=== PATIENT | male | born 1950 | race Caucasian/White ===

== ENCOUNTER 2016-11-25 12:17 | Inpatient (IN) | payer MEDICARE, OTHER ==
[~2016-11-25] VITALS: Ht 175.3 cm; Wt 64.5 kg
[~2016-11-25 12:17] MED LIST: AMIO200T2 PO; ASPI81TA2 PO; CARV25TA2 PO; COMBIVENT; DUONEB; FOLI1TAB16 PO; FURO20TA3 PO; LISI40TA PO; OXYC30TA PO; PRAV10TA2 PO; PROVENTIL; SPIR25TA3 PO; SYMBICORT
[2016-11-25] MEDS ORDERED: PROCHLORPERAZINE 10 MG/2 ML VIAL. IV PRN (14:30)
[2016-11-25] MEDS ORDERED: CALCIUM CARBONATE 500 MG TAB.CHEW PO PRN (14:30)
[2016-11-25] MEDS ORDERED: PROCHLORPERAZINE 25 MG SUPP.RECT. PR PRN (14:30)
[2016-11-25] MEDS ORDERED: ZOLPIDEM 5 MG TABLET. PO PRN (14:30)
[2016-11-25] MEDS ORDERED: ONDANSETRON PF 4 MG/2 ML VIAL. IV PRN (14:30)
[2016-11-25] MEDS ORDERED: LACTULOSE 20 GM/30 ML SOLUTION. PO PRN (14:30)
[2016-11-25] MEDS ORDERED: OXYCODONE IR 5 MG TABLET. PO PRN (14:30)
[2016-11-25] MEDS ORDERED: MAG HYDROX/ALUMINUM HYDROX/SMC 30 ML ORAL.SUSP PO PRN (14:30)
[2016-11-25] MEDS ORDERED: MORPHINE SULFATE 2 MG/ML DISP.SYRIN. IV PRN (14:30)
[2016-11-25] MEDS ORDERED: ENOXAPARIN 40 MG/0.4 ML DISP.SYRIN. SQ SCH (14:30)
[2016-11-25] MEDS ORDERED: MAGNESIUM HYDROXIDE 2,400 MG/30 ML ORAL.SUSP. PO PRN (14:30)
--- NOTE | 2016-11-25 14:40 | PDOC1 ---
History and Physical Date of Admission Date of Admission DATE: 11/25/16 TIME: 14:32 Identification/Chief Complaint Chief Complaint sent from [place] for [place], no bed avail at [place] Source Source: Caregiver, Chart review, Patient History of Present Illness History of Present Illness 66 y.o male who follows at [place], medical hx includes CAD with PCI indwelling, hx CHF with EF 45%, chronic atrial fib but currently not in a fib, EMS was called in his place bec there was some malfunction in his home o2, that he almost blacked out,. he claims he did not have O2 for 2 hrs, almost saw "the end of the light tunnel",. He has COPD on home O2 2LNC 28/04. Currently in between looking for software design manager, He is chronic pain, narcs at home and is not on good rapport with current PCP bec of his narcotic dependence.. he denies CP, but trops were 0.09, 0.58 and 0.065, respectively at [place] ER. CXR ok, rest of labs ok, He had a recent admit at , for the same, cardiac cath was done which showed occlusion but no stents were placed. Pt claims compliance with meds, Heavy smoker x 45 yrs, quit few mos ago, ALso had occupational lung exposure issues, he claims contributed to his COPD he claims the low O2 x 2 hrs likely "put a strain in his heart". Past Medical History Cardiovascular: AFIB, CAD, CHF, HTN, Hyperlipidemia Pulmonary: COPD Past Surgical History Past Surgical History: Other (PCI x 2) Family History Family History: No Significant Social History Smoke: Quit ALCOHOL: none Drugs: None Current Problem List Problem List Problems Medical Problems: (1) COPD (chronic obstructive pulmonary disease) Status: Acute Problems: Current Medications Current Medications Current Medications Ondansetron HCl (Zofran) 4 mg PRN Q6HRS PRN IV NAUSEA/VOMITING; Start 11/25/16 at 14:30; Status UNV Prochlorperazine Edisylate (Compazine) 10 mg PRN Q6HRS PRN IV NAUSEA/VOMITING; Start 11/25/16 at 14:30; Status UNV Prochlorperazine (Compazine) 25 mg PRN Q12HR PRN NE NAUSEA/VOMITING; Start at 14:30; Status UNV Al Hydrox/Mg Hydrox/Simethicone (Mylanta Plus Xs) 30 ml PRN Q3HRS PRN PO HEARTBURN / GAS; Start 11/25/16 at 14:30; Status UNV Calcium Carbonate/ Glycine (Tums) 500 mg PRN Q3HRS PRN PO UPSET STOMACH; Start 11/25/16 at 14:30; Status UNV Oxycodone HCl (Roxicodone) 5 mg PRN Q3HRS PRN PO BREAKTHROUGH PAIN; Start 11/25 at 14:30; Status UNV Morphine Sulfate 2 mg PRN Q2HR PRN IV PAIN; Start 11/25/16 at 14:30; Status UNV Docusate Sodium (Colace) 100 mg BID PO ; Start 11/25/16 at 21:00; Status UNV Magnesium Hydroxide (Milk Of Magnesia) 2,400 mg PRN Q12HR PRN PO CONSTIPATION; Start 11/25/16 at 14:30; Status UNV Lactulose 20 gm PRN Q12HR PRN PO CONSTIPATION; Start 11/25/16 at 14:30; Status UNV Heparin Sodium (Porcine) 5,000 unit Q8HRS SQ ; Start 11/25/16 at 22:00; Status UNV Heparin Sodium (Porcine) 5,000 unit Q12HR SQ ; Start 11/25/16 at 21:00; Status UNV Enoxaparin Sodium (Lovenox 40mg Syringe) 40 mg Q24H SQ ; Start 11/25/16 at 14:30 ; Status UNV Active Scripts Active Reported Oxycodone Hcl 30 Mg Tablet 1 Tab PO QID Spironolactone 25 Mg Tablet 0.5 Tab PO DAILY Furosemide 20 Mg Tablet 20 Mg PO BID [Duoneb] [Combivent] [Proventil] [Symbicort] Lisinopril 40 Mg Tablet 0.5 Tab PO DAILY Folic Acid 1 Mg Tablet 1 Tab PO DAILY Pravastatin Sodium 10 Mg Tablet 0.5 Tab PO DAILY Aspirin 81 Mg Tab.chew 1 Tab PO DAILY Carvedilol 25 Mg Tablet 0.5 Tab PO BID Amiodarone Hcl 200 Mg Tablet 0.5 Tab PO DAILY Allergies Allergies: Coded Allergies: Fish Containing Products (Unverified Allergy, Unknown, Unknown, 08/13/15) bee pollen (Unverified Allergy, Unknown, Unknown, 08/13/15) peanut (Unverified Allergy, Unknown, Unknown, 08/13/15) propoxyphene (Unverified Allergy, Unknown, Unknown, 08/13/15) venom-honey bee (Unverified Allergy, Unknown, Unknown, 08/13/15) Uncoded Allergies: UNKNOWN ANTIBIOTIC (Allergy, Unknown, Unknown, 08/13/15) ROS General: No: Appetite, Chills, Fatigue, Malaise, Night Sweats, Other PSYCHOLOGICAL ROS: No: Anxiety, Behavioral Disorder, Concentration difficultie , Decreased libido, Depression, Disorientation, Hallucinations, Hostility, Irritablity, Memory difficulties, Mood Swings, Obsessive thoughts, Other, Physical abuse, Sexual abuse, Sleep disturbances, Suicidal ideation Eyes: No Blurry vision, No Decreased vision, No Double vision, No Dry eyes, No Excessive tearing, No Eye Pain, No Itchy Eyes, No Loss of vision, No Other, No Photophobia, No Scotomata, No Uses contacts, No Uses glasses HEENT: No: Epistaxis, Heacaches, Hearing change, Nasal congestion, Nasal discharge, Oral lesions, Other, Sinus pain, Sneezing, Snoring, Sore Throat, Tinnitus, Vertigo, Visual Changes, Vocal changes ALLERGY AND IMMUNOLOGY: No: Hives, Insect Bite Sensitivity, Itchy/Watery Eyes, Nasal Congestion, Other, Post Nasal Drip, Seasonal Allergies Hematological and Lymphatic: No: Bleeding Problems, Blood Clots, Blood Transfusions, Brusing, Night Sweats, Other, Pallor, Swollen Lymph Nodes ENDOCRINE: No: Breast Changes, Galactorrhea, Hair Pattern Changes, Hot Flashes , Malaise/lethargy, Mood Swings, Other, Palpitations, Polydipsia/polyuria, Skin Changes, Temperature Intolerance, Unexpected Weight Changes Breast: No New/Changing Breast Lumps, No Nipple changes, No Nipple discharge, No Other Respiratory: YES: Shortness of breath Cardiovascular: No Chest Pain, No Edema, No Lt Headedness, No Orthopnea, No Other, No Palpitations, No Paroxysmal Noc. Dyspnea Genitourinary: No , No , No , No , No , No , No , No Discharge, No Dysuria, No Flank Pain, No Frequency, No Hematuria, No Incontinence, No Other, No Pain, No Retention, No Urgency Neurological: No Behavorial Changes, No Bowel/Bladder ControlChng, No Confusion , No Dizziness, No Gait Disturbance, No Headaches, No Impaired Coord/balance, No Memory Loss, No Numbness/Tingling, No Other, No Seizures, No Speech Problems , No Tremors, No Visual Changes, No Weakness Skin: No Acne, No Dry Skin, No Eczema, No Hair Changes, No Lumps, No Mole Changes, No Mottling, No Nail Changes, No Other, No Pruritus, No Rash, No Skin Lesion Changes Physical Exam General: Alert, Oriented X3, Cooperative HEENT: PERRLA Lungs: Normal air movement, Other (no wheezes, normal air entry) Breasts: Normal, Rt breast nml w/o mass, Lt breast nml w/o mass, Nipples normal Abdomen: Normal bowel sounds, Soft, No tenderness, No hepatosplenomegaly, No masses Male Genitals Exam: normal genitalia, normal prostate Rectal Exam: not examined PELVIC: Nml ext genitalia Extremities: No clubbing, No cyanosis, No edema, Normal pulses, No tenderness/ swelling Skin: No rashes, No breakdown, No significant lesion Neuro: Normal gait, Normal speech, Strength at 5/5 X4 ext, Normal tone, Sensation intact, Cranial nerves 3-12 NL, Reflexes 2+ Psych/Mental Status: Mental status NL, Mood NL VTE Prophylaxis Ordered VTE Prophylaxis Devices: Yes VTE Pharmacological Prophylaxi: Yes Assessment/Plan Assessment/Plan 1. Hypoxic respi failure POA sec to malfunctioning O2 tank - currently has HH and they will fix the issue 2. Troponin elevation x 3, known CAD indwelling PCI 4. CHF, stable with EF 45% 5. Hx atrial fib 6. Chronic pain on home narcs 7. COPD, prev heavy smoker and occupational lung hazard 8. MIld PCM PLAN: COnsult CArds Resume home meds May have diet today CAn get records from [facility] re recent cardiac cath Ramu RN and pt JAMARCUS MCNAMARA MD Nov 25, 2016 14:40
[2016-11-25] MEDS ORDERED: PANT40TA3 PO (14:54)
[2016-11-25] MEDS ORDERED: FERR-26 PO (14:54)
[2016-11-25 15:00] VITALS: BP 143/75
[2016-11-25] MEDS ORDERED: LISINOPRIL 40 MG TABLET. PO SCH (15:00)
[2016-11-25] MEDS: ASPIRIN 81 MG TAB.CHEW PO SCH (15:00)
[2016-11-25] MEDS ORDERED: SPIRONOLACTONE 25 MG TABLET PO SCH (15:00)
[2016-11-25] MEDS: FOLIC ACID 1 MG TABLET PO SCH (15:00)
[2016-11-25] MEDS ORDERED: FUROSEMIDE 20 MG TABLET PO SCH (15:00)
[2016-11-25] MEDS: AMIODARONE HCL 200 MG TABLET PO SCH (15:00)
[2016-11-25] MEDS ORDERED: HEPARIN PF for SUB-Q USE 5,000 UNIT/0.5 ML VIAL. SQ SCH ×2 (15:15→21:00)
[2016-11-25] MEDS ORDERED: SENN1TAB7 PO (15:34)
[2016-11-25] MEDS ORDERED: LISI-338 PO (15:34)
[2016-11-25] MEDS ORDERED: CEFP200T PO (15:34)
[2016-11-25] MEDS ORDERED: APIX5TAB PO (15:34)
[2016-11-25] MEDS ORDERED: CETI10TA22 PO (15:34)
[2016-11-25] MEDS ORDERED: BUPR100T11 PO (15:34)
[2016-11-25] MEDS ORDERED: ERGO500012 PO (15:34)
[2016-11-25] MEDS ORDERED: ASCO250T3 PO (15:34)
[2016-11-25] MEDS ORDERED: FLUT15.88 NS (15:34)
[2016-11-25] MEDS ORDERED: POLY17PO5 PO (15:34)
[2016-11-25] MEDS ORDERED: METO50TA10 PO (15:34)
[2016-11-25] MEDS ORDERED: BENZ100C2 PO (15:34)
[2016-11-25] MEDS ORDERED: OXYC10SY PO (15:34)
[2016-11-25] MEDS ORDERED: AMIO200T2 PO (16:35)
[2016-11-25] MEDS: FERROUS SULFATE 325 MG TABLET PO SCH (17:00)
[2016-11-25] MEDS ORDERED: CARVEDILOL 12.5 MG TABLET PO SCH (17:00)
[2016-11-25] MEDS: METOPROLOL SUCC 24HR ER 50 MG TAB.ER.24H. PO SCH (17:00)
[2016-11-25] MEDS: PANTOPRAZOLE 40 MG TABLET. PO SCH (17:00)
[2016-11-25] MEDS: CETIRIZINE HCL 10 MG TABLET PO SCH (17:00)
[2016-11-25] MEDS ORDERED: OXYCODONE IR 30 MG TABLET. PO SCH (17:00)
[2016-11-25] MEDS: OXYCODONE IR 5 MG TABLET. PO PRN ×2 (17:30→20:42)
[2016-11-25 19:50] VITALS: BP 140/74
[2016-11-25] MEDS: ASCORBIC ACID 500 MG TABLET PO SCH (20:39)
[2016-11-25] MEDS: ATORVASTATIN CALCIUM 10 MG TABLET. PO SCH (20:39)
[2016-11-25] MEDS: DOCUSATE SODIUM 100 MG CAPSULE PO SCH (20:39)
[2016-11-25] MEDS: APIXABAN 5 MG TABLET. PO SCH (20:39)
[2016-11-25] MEDS: CEFPODOXIME PROXETIL 200 MG TABLET PO SCH (20:39)
[2016-11-25] MEDS: buPROPion 100 MG TABLET PO SCH (20:39)
[2016-11-25] MEDS: LISINOPRIL 5 MG TABLET. PO SCH (20:40)
[2016-11-25 22:50] VITALS: BP 139/64
[2016-11-26] MEDS: OXYCODONE IR 5 MG TABLET. PO PRN ×6 (02:29→23:34)
[2016-11-26 02:55] VITALS: BP 164/74
[2016-11-26 05:11] LABS: BASO % 0 % (0-3); EOS % 0 % (0-3); HEMATOCRIT 25.9 % (39.0-53.0); HEMOGLOBIN 8.7 g/dL (13.0-17.5); LYMPH # 0.4 x10^3/uL (1.0-4.8); LYMPH % 5 % (24-48); MEAN CORPUSCULAR HEMOGLOBIN 31 pg (25-35); MEAN CORPUSCULAR HGB CONC 34 g/dL (31-37); MEAN CORPUSCULAR VOLUME 91 fL (79-100); MONO % 8 % (0-9); NEUT % 87 % (31-73); PLATELET COUNT 146 x10^3/uL (140-400); RED BLOOD COUNT 2.83 x10^6/uL (4.30-5.70); RED CELL DISTRIBUTION WIDTH 17.5 % (11.5-14.5); WHITE BLOOD COUNT 6.7 x10^3/uL (4.0-11.0)
[2016-11-26 05:21] LABS: INR 1.3 (0.8-1.1); PROTHROMBIN TIME PATIENT 15.5 SEC (11.7-14.0)
[2016-11-26 06:11] LABS: CALCIUM 9.1 mg/dL (8.5-10.1); CREATININE 0.7 mg/dL (0.7-1.3); GFR 112.1
[2016-11-26 07:31] VITALS: BP 149/70
[2016-11-26] MEDS: AMIODARONE HCL 200 MG TABLET PO SCH (09:00)
[2016-11-26] MEDS ORDERED: REGADENOSON 0.4 MG/5 ML DISP.SYRIN. IV ONE (10:00)
--- NOTE | 2016-11-26 10:08 | PDOC2 ---
CONSULT Date of Consult Date of Consult DATE: 11/26/16 TIME: 09:56 Reason for Consult Reason for Consult: Elevated troponins Referring Physician Referring Physician: Nemesio Identification/Chief Complaint Chief Complaint Short of breath Source Source: Chart review, Patient History of Present Illness Reason for Visit: Patient is a 66 year old male with a past history of CAD, COPD, chronic Afib with PCI placement (EF 45%), and a recent CVA who transferred from the [place] for mildly elevated troponins after presenting for dyspnea. He lives at home and reports his home oxygen (2L NC) shut off twice causes him to pass out once. EMS took him to the [facility] where he was found to have mildly elevated troponins 0.091, 0.052, 0.064, at two and half hour intervals. His CXR was within normal limits and his EKG was normal sinus rhythm with ST abnormalities non concerning for an Acute MS. He was transferred for further workup. He denies any chest pain during this episode. The patient reports he was recently discharged from where he had a heart catheterization without stenting performed. He also reports a stroke two weeks ago that is affecting his left side with improving weakness. He reports he gets short of breath very easily and walking is painful secondary to BRUNNER and limb length discrepancy Past Medical History Cardiovascular: AFIB, CAD, CHF, HTN, Hyperlipidemia Pulmonary: COPD Past Surgical History Past Surgical History: Other (PCI x 2) Family History Family History: No Significant Social History Quit (smoked over 45 years recently quit) ALCOHOL: none Drugs: None Current Problem List Problem List Problems Medical Problems: (1) COPD (chronic obstructive pulmonary disease) Status: Acute Current Medications Current Medications Current Medications Ondansetron HCl (Zofran) 4 mg PRN Q6HRS PRN IV NAUSEA/VOMITING; Start 11/25/16 at 14:30 Prochlorperazine Edisylate (Compazine) 10 mg PRN Q6HRS PRN IV NAUSEA/VOMITING; Start 11/25/16 at 14:30 Prochlorperazine (Compazine) 25 mg PRN Q12HR PRN [place] NAUSEA/VOMITING; Start at 14:30 Al Hydrox/Mg Hydrox/Simethicone (Mylanta Plus Xs) 30 ml PRN Q3HRS PRN PO HEARTBURN / GAS; Start 11/25/16 at 14:30 Calcium Carbonate/ Glycine (Tums) 500 mg PRN Q3HRS PRN PO UPSET STOMACH; Start 11/25/16 at 14:30 Zolpidem Tartrate (Ambien) 5 mg PRN QHS PRN PO INSOMNIA, MAY REPEAT IN 1HR; Start 11/25/16 at 14:30 Oxycodone HCl (Roxicodone) 5 mg PRN Q3HRS PRN PO BREAKTHROUGH PAIN; Start 11/25 at 14:30; Stop 11/25/16 at 16:44; Status DC Morphine Sulfate 2 mg PRN Q2HR PRN IV PAIN; Start 11/25/16 at 14:30 Docusate Sodium (Colace) 100 mg BID PO ; Start 11/25/16 at 21:00 Magnesium Hydroxide (Milk Of Magnesia) 2,400 mg PRN Q12HR PRN PO CONSTIPATION; Start 11/25/16 at 14:30 Lactulose 20 gm PRN Q12HR PRN PO CONSTIPATION; Start 11/25/16 at 14:30 Heparin Sodium (Porcine) 5,000 unit Q8HRS SQ ; Start 11/25/16 at 15:15; Stop at 15:42; Status DC Heparin Sodium (Porcine) 5,000 unit Q12HR SQ ; Start 11/25/16 at 21:00; Stop at 21:00; Status DC Enoxaparin Sodium (Lovenox 40mg Syringe) 40 mg Q24H SQ ; Start 11/25/16 at 14:30 ; Stop 11/25/16 at 15:42; Status DC Amiodarone HCl (Cordarone) 200 mg DAILY PO ; Start 11/25/16 at 15:00 Aspirin (Children'S Aspirin) 81 mg DAILY PO ; Start 11/25/16 at 15:00 Folic Acid (Folic Acid) 1 mg DAILY PO ; Start 11/25/16 at 15:00 Furosemide (Lasix) 20 mg BID92 PO ; Start 11/25/16 at 15:00; Stop 11/25/16 at 16 :44; Status DC Lisinopril (Prinivil) 40 mg DAILY PO ; Start 11/25/16 at 15:00; Stop 11/25/16 at 16:44; Status DC Oxycodone HCl (Roxicodone) 30 mg QID PO ; Start 11/25/16 at 17:00; Stop at 17:00; Status DC Spironolactone (Aldactone) 25 mg DAILY PO ; Start 11/25/16 at 15:00; Stop at 16:44; Status DC Carvedilol (Coreg) 12.5 mg BIDWMEALS PO ; Start 11/25/16 at 17:00; Stop at 17:00; Status DC Atorvastatin Calcium (Lipitor) 5 mg QHS PO Last administered on 11/25/16 20:39 ; Start 11/25/16 at 21:00 Apixaban (Eliquis) 5 mg BID PO Last administered on 11/25/16 20:39; Start at 21:00 Bupropion HCl (Wellbutrin) 100 mg BID PO Last administered on 11/25/16 20:39; Start 11/25/16 at 21:00 Cefpodoxime Proxetil (Vantin) 200 mg BID PO Last administered on 11/25/16 20: 39; Start 11/25/16 at 21:00 Cetirizine HCl (Zyrtec) 10 mg DAILY PO ; Start 11/25/16 at 17:00 Ferrous Sulfate (Feosol) 325 mg DAILY PO ; Start 11/25/16 at 17:00 Lisinopril (Prinivil) 5 mg HS PO Last administered on 11/25/16 20:40; Start at 21:00 Metoprolol Succinate (Toprol Xl) 100 mg DAILY PO ; Start 11/25/16 at 17:00 Pantoprazole Sodium (Protonix) 40 mg DAILYAC PO ; Start 11/25/16 at 17:00 Ascorbic Acid (Vitamin C) 250 mg BID PO Last administered on 11/25/16 20:39; Start 11/25/16 at 21:00 Oxycodone HCl (Roxicodone) 10 mg PRN Q4HRS PRN PO MODERATE TO SEVERE PAIN Last administered on 11/26/16 08:16; Start 11/25/16 at 17:15 Oxycodone HCl (Roxicodone) 20 mg PRN Q4HRS PRN PO SEVERE PAIN Last administered on 11/26/16 02:29; Start 11/25/16 at 17:15 Regadenoson (Lexiscan) 0.4 mg 1X ONCE IV ; Start 11/26/16 at 10:00; Stop at 10:01 Active Scripts Active Reported Amiodarone Hcl 200 Mg Tablet 1 Tab PO DAILY Oxycodone HCl 10 Mg/0.5 Ml Syringe 10 Mg PO PRN Q4HRS PRN Oxycodone HCl 10 Mg/0.5 Ml Syringe 20 Mg PO PRN Q4HRS PRN Bupropion Hcl 100 Mg Tablet 100 Mg PO BID Metoprolol Succinate 50 Mg Tab.er.24h 100 Mg PO DAILY Lisinopril 5 Mg Tablet 1 Tab PO HS Senna-Docusate Sodium Tablet (Sennosides/Docusate Sodium) 1 Each Tablet 1 Each PO PRN BID PRN Zyrtec (Cetirizine Hcl) 10 Mg Tablet 1 Tab PO DAILY Cefpodoxime Proxetil 200 Mg Tablet 1 Tab PO BID Benzonatate 100 Mg Capsule 1 Cap PO PRN TID PRN Ascorbic Acid 250 Mg Tablet 250 Mg PO BID Eliquis (Apixaban) 5 Mg Tablet 5 Mg PO BID Protonix (Pantoprazole Sodium) 40 Mg Tablet.dr 1 Tab PO DAILY Ferrous Sulfate 325 Mg Tablet 1 Tab PO DAILY Spironolactone 25 Mg Tablet 0.5 Tab PO DAILY [Duoneb] [Combivent] [Proventil] [Symbicort] Pravastatin Sodium 10 Mg Tablet 0.5 Tab PO HS Aspirin 81 Mg Tab.chew 1 Tab PO DAILY Allergies Allergies: Coded Allergies: peanut (Unverified Allergy, Severe, 11/26/16) venom-honey bee (Unverified Allergy, Severe, 11/26/16) Fish Containing Products (Unverified Allergy, Intermediate, 11/26/16) bee pollen (Unverified Allergy, Intermediate, 11/26/16) propoxyphene (Unverified Allergy, Intermediate, 11/26/16) I S O L A T I O N *CONTACT* (Verified Allergy, Unknown, 11/26/16) mrsa Uncoded Allergies: UNKNOWN ANTIBIOTIC (Allergy, Unknown, Unknown, 08/13/15) ROS Review of System negative except as described in the HPI Physical Exam General: Alert, Cooperative, No acute distress HEENT: PERRLA Lungs: Clear to auscultation (NC in place, slightly diminished air movement) Heart: Regular rate, Normal S1, Normal S2 Abdomen: Normal bowel sounds Extremities: No clubbing, No cyanosis, No edema Vitals VITALS Vital Signs Date Time Temp Pulse Resp B/P Pulse Ox O2 Delivery O2 Flow Rate FiO2 11/26/16 09:15 22 99 Nasal Cannula 3.0 11/26/16 07:31 97.9 68 149/70 97.9 Labs Labs Laboratory Tests Test 11/26/16 03:40 White Blood Count 6.7x10^3/uL (4.0-11.0) Red Blood Count 2.83x10^6/uL (4.30-5.70) Hemoglobin 8.7g/dL (13.0-17.5) Hematocrit 25.9% (39.0-53.0) Mean Corpuscular Volume 91fL (79-100) Mean Corpuscular Hemoglobin 31pg (25-35) Mean Corpuscular Hemoglobin Concent 34g/dL (31-37) Red Cell Distribution Width 17.5% (11.5-14.5) Platelet Count 146x10^3/uL (140-400) Neutrophils (%) (Auto) 87% (31-73) Lymphocytes (%) (Auto) 5% (24-48) Monocytes (%) (Auto) 8% (0-9) Eosinophils (%) (Auto) 0% (0-3) Basophils (%) (Auto) 0% (0-3) Neutrophils # (Auto) 5.8x10^3uL (1.8-7.7) Lymphocytes # (Auto) 0.4x10^3/uL (1.0-4.8) Monocytes # (Auto) 0.5x10^3/uL (0.0-1.1) Eosinophils # (Auto) 0.0x10^3/uL (0.0-0.7) Basophils # (Auto) 0.0x10^3/uL (0.0-0.2) Prothrombin Time 15.5SEC (11.7-14.0) Prothromb Time International Ratio 1.3 (0.8-1.1) Sodium Level 144mmol/L (136-145) Potassium Level 4.0mmol/L (3.5-5.1) Chloride Level 104mmol/L (98-107) Carbon Dioxide Level 34mmol/L (21-32) Anion Gap 6 (6-14) Blood Urea Nitrogen 28mg/dL (8-26) Creatinine 0.7mg/dL (0.7-1.3) Estimated GFR (Cockcroft-Gault) 112.1 Glucose Level 138mg/dL (70-99) Calcium Level 9.1mg/dL (8.5-10.1) Laboratory Tests Test 11/26/16 03:40 White Blood Count 6.7x10^3/uL (4.0-11.0) Red Blood Count 2.83x10^6/uL (4.30-5.70) Hemoglobin 8.7g/dL (13.0-17.5) Hematocrit 25.9% (39.0-53.0) Mean Corpuscular Volume 91fL (79-100) Mean Corpuscular Hemoglobin 31pg (25-35) Mean Corpuscular Hemoglobin Concent 34g/dL (31-37) Red Cell Distribution Width 17.5% (11.5-14.5) Platelet Count 146x10^3/uL (140-400) Neutrophils (%) (Auto) 87% (31-73) Lymphocytes (%) (Auto) 5% (24-48) Monocytes (%) (Auto) 8% (0-9) Eosinophils (%) (Auto) 0% (0-3) Basophils (%) (Auto) 0% (0-3) Neutrophils # (Auto) 5.8x10^3uL (1.8-7.7) Lymphocytes # (Auto) 0.4x10^3/uL (1.0-4.8) Monocytes # (Auto) 0.5x10^3/uL (0.0-1.1) Eosinophils # (Auto) 0.0x10^3/uL (0.0-0.7) Basophils # (Auto) 0.0x10^3/uL (0.0-0.2) Prothrombin Time 15.5SEC (11.7-14.0) Prothromb Time International Ratio 1.3 (0.8-1.1) Sodium Level 144mmol/L (136-145) Potassium Level 4.0mmol/L (3.5-5.1) Chloride Level 104mmol/L (98-107) Carbon Dioxide Level 34mmol/L (21-32) Anion Gap 6 (6-14) Blood Urea Nitrogen 28mg/dL (8-26) Creatinine 0.7mg/dL (0.7-1.3) Estimated GFR (Cockcroft-Gault) 112.1 Glucose Level 138mg/dL (70-99) Calcium Level 9.1mg/dL (8.5-10.1) Assessment/Plan Assessment/Plan Patient presented with elevated troponins and shortness of breath in the setting of known cardiac disease. He recently had a heart cath and will attempt to obtain records. Will make further recommendations after completion of a stress MPI KAREEN LEE MD Nov 26, 2016 10:08
--- NOTE | 2016-11-26 10:18 | PDOC ---
PROGRESS NOTES Chief Complaint Chief Complaint cc: elevated troponin 1. Hypoxic respiratory failure POA sec to malfunctioning O2 tank 2. Troponin elevation x 3, known CAD indwelling PCI 4. CHF, stable with EF 45% 5. Chronic atrial fib 6. COPD Plan Diuresis stress test pending cardiology following supplemental oxygen HR controlled. History of Present Illness History of Present Illness sob no chest pain no fever no chills. Vitals Vitals Vital Signs Date Time Temp Pulse Resp B/P Pulse Ox O2 Delivery O2 Flow Rate FiO2 11/26/16 09:15 22 99 Nasal Cannula 3.0 11/26/16 07:31 97.9 68 149/70 97.9 Physical Exam General: Alert, Cooperative, No acute distress Heart: Regular rate, Normal S1, Normal S2 Lungs: Other (decreased BS) Abdomen: Normal bowel sounds Extremities: No clubbing, No cyanosis, No edema Skin: No rashes, No breakdown, No significant lesion Labs LABS Laboratory Tests Test 11/26/16 03:40 White Blood Count 6.7x10^3/uL (4.0-11.0) Red Blood Count 2.83x10^6/uL (4.30-5.70) Hemoglobin 8.7g/dL (13.0-17.5) Hematocrit 25.9% (39.0-53.0) Mean Corpuscular Volume 91fL (79-100) Mean Corpuscular Hemoglobin 31pg (25-35) Mean Corpuscular Hemoglobin Concent 34g/dL (31-37) Red Cell Distribution Width 17.5% (11.5-14.5) Platelet Count 146x10^3/uL (140-400) Neutrophils (%) (Auto) 87% (31-73) Lymphocytes (%) (Auto) 5% (24-48) Monocytes (%) (Auto) 8% (0-9) Eosinophils (%) (Auto) 0% (0-3) Basophils (%) (Auto) 0% (0-3) Neutrophils # (Auto) 5.8x10^3uL (1.8-7.7) Lymphocytes # (Auto) 0.4x10^3/uL (1.0-4.8) Monocytes # (Auto) 0.5x10^3/uL (0.0-1.1) Eosinophils # (Auto) 0.0x10^3/uL (0.0-0.7) Basophils # (Auto) 0.0x10^3/uL (0.0-0.2) Prothrombin Time 15.5SEC (11.7-14.0) Prothromb Time International Ratio 1.3 (0.8-1.1) Sodium Level 144mmol/L (136-145) Potassium Level 4.0mmol/L (3.5-5.1) Chloride Level 104mmol/L (98-107) Carbon Dioxide Level 34mmol/L (21-32) Anion Gap 6 (6-14) Blood Urea Nitrogen 28mg/dL (8-26) Creatinine 0.7mg/dL (0.7-1.3) Estimated GFR (Cockcroft-Gault) 112.1 Glucose Level 138mg/dL (70-99) Calcium Level 9.1mg/dL (8.5-10.1) Assessment and Plan Assessmemt and Plan Problems Medical Problems: (1) COPD (chronic obstructive pulmonary disease) Status: Acute Problems: Comment Review of Relevant I have reviewed the following items meka (where applicable) has been applied. Labs Laboratory Tests Test 11/26/16 03:40 White Blood Count 6.7x10^3/uL (4.0-11.0) Red Blood Count 2.83x10^6/uL (4.30-5.70) Hemoglobin 8.7g/dL (13.0-17.5) Hematocrit 25.9% (39.0-53.0) Mean Corpuscular Volume 91fL (79-100) Mean Corpuscular Hemoglobin 31pg (25-35) Mean Corpuscular Hemoglobin Concent 34g/dL (31-37) Red Cell Distribution Width 17.5% (11.5-14.5) Platelet Count 146x10^3/uL (140-400) Neutrophils (%) (Auto) 87% (31-73) Lymphocytes (%) (Auto) 5% (24-48) Monocytes (%) (Auto) 8% (0-9) Eosinophils (%) (Auto) 0% (0-3) Basophils (%) (Auto) 0% (0-3) Neutrophils # (Auto) 5.8x10^3uL (1.8-7.7) Lymphocytes # (Auto) 0.4x10^3/uL (1.0-4.8) Monocytes # (Auto) 0.5x10^3/uL (0.0-1.1) Eosinophils # (Auto) 0.0x10^3/uL (0.0-0.7) Basophils # (Auto) 0.0x10^3/uL (0.0-0.2) Prothrombin Time 15.5SEC (11.7-14.0) Prothromb Time International Ratio 1.3 (0.8-1.1) Sodium Level 144mmol/L (136-145) Potassium Level 4.0mmol/L (3.5-5.1) Chloride Level 104mmol/L (98-107) Carbon Dioxide Level 34mmol/L (21-32) Anion Gap 6 (6-14) Blood Urea Nitrogen 28mg/dL (8-26) Creatinine 0.7mg/dL (0.7-1.3) Estimated GFR (Cockcroft-Gault) 112.1 Glucose Level 138mg/dL (70-99) Calcium Level 9.1mg/dL (8.5-10.1) Laboratory Tests Test 11/26/16 03:40 White Blood Count 6.7x10^3/uL (4.0-11.0) Red Blood Count 2.83x10^6/uL (4.30-5.70) Hemoglobin 8.7g/dL (13.0-17.5) Hematocrit 25.9% (39.0-53.0) Mean Corpuscular Volume 91fL (79-100) Mean Corpuscular Hemoglobin 31pg (25-35) Mean Corpuscular Hemoglobin Concent 34g/dL (31-37) Red Cell Distribution Width 17.5% (11.5-14.5) Platelet Count 146x10^3/uL (140-400) Neutrophils (%) (Auto) 87% (31-73) Lymphocytes (%) (Auto) 5% (24-48) Monocytes (%) (Auto) 8% (0-9) Eosinophils (%) (Auto) 0% (0-3) Basophils (%) (Auto) 0% (0-3) Neutrophils # (Auto) 5.8x10^3uL (1.8-7.7) Lymphocytes # (Auto) 0.4x10^3/uL (1.0-4.8) Monocytes # (Auto) 0.5x10^3/uL (0.0-1.1) Eosinophils # (Auto) 0.0x10^3/uL (0.0-0.7) Basophils # (Auto) 0.0x10^3/uL (0.0-0.2) Prothrombin Time 15.5SEC (11.7-14.0) Prothromb Time International Ratio 1.3 (0.8-1.1) Sodium Level 144mmol/L (136-145) Potassium Level 4.0mmol/L (3.5-5.1) Chloride Level 104mmol/L (98-107) Carbon Dioxide Level 34mmol/L (21-32) Anion Gap 6 (6-14) Blood Urea Nitrogen 28mg/dL (8-26) Creatinine 0.7mg/dL (0.7-1.3) Estimated GFR (Cockcroft-Gault) 112.1 Glucose Level 138mg/dL (70-99) Calcium Level 9.1mg/dL (8.5-10.1) Medications Current Medications Ondansetron HCl (Zofran) 4 mg PRN Q6HRS PRN IV NAUSEA/VOMITING; Start 11/25/16 at 14:30 Prochlorperazine Edisylate (Compazine) 10 mg PRN Q6HRS PRN IV NAUSEA/VOMITING; Start 11/25/16 at 14:30 Prochlorperazine (Compazine) 25 mg PRN Q12HR PRN [place] NAUSEA/VOMITING; Start at 14:30 Al Hydrox/Mg Hydrox/Simethicone (Mylanta Plus Xs) 30 ml PRN Q3HRS PRN PO HEARTBURN / GAS; Start 11/25/16 at 14:30 Calcium Carbonate/ Glycine (Tums) 500 mg PRN Q3HRS PRN PO UPSET STOMACH; Start 11/25/16 at 14:30 Zolpidem Tartrate (Ambien) 5 mg PRN QHS PRN PO INSOMNIA, MAY REPEAT IN 1HR; Start 11/25/16 at 14:30 Oxycodone HCl (Roxicodone) 5 mg PRN Q3HRS PRN PO BREAKTHROUGH PAIN; Start 11/25 at 14:30; Stop 11/25/16 at 16:44; Status DC Morphine Sulfate 2 mg PRN Q2HR PRN IV PAIN; Start 11/25/16 at 14:30 Docusate Sodium (Colace) 100 mg BID PO ; Start 11/25/16 at 21:00 Magnesium Hydroxide (Milk Of Magnesia) 2,400 mg PRN Q12HR PRN PO CONSTIPATION; Start 11/25/16 at 14:30 Lactulose 20 gm PRN Q12HR PRN PO CONSTIPATION; Start 11/25/16 at 14:30 Heparin Sodium (Porcine) 5,000 unit Q8HRS SQ ; Start 11/25/16 at 15:15; Stop at 15:42; Status DC Heparin Sodium (Porcine) 5,000 unit Q12HR SQ ; Start 11/25/16 at 21:00; Stop at 21:00; Status DC Enoxaparin Sodium (Lovenox 40mg Syringe) 40 mg Q24H SQ ; Start 11/25/16 at 14:30 ; Stop 11/25/16 at 15:42; Status DC Amiodarone HCl (Cordarone) 200 mg DAILY PO ; Start 11/25/16 at 15:00 Aspirin (Children'S Aspirin) 81 mg DAILY PO ; Start 11/25/16 at 15:00 Folic Acid (Folic Acid) 1 mg DAILY PO ; Start 11/25/16 at 15:00 Furosemide (Lasix) 20 mg BID92 PO ; Start 11/25/16 at 15:00; Stop 11/25/16 at 16 :44; Status DC Lisinopril (Prinivil) 40 mg DAILY PO ; Start 11/25/16 at 15:00; Stop 11/25/16 at 16:44; Status DC Oxycodone HCl (Roxicodone) 30 mg QID PO ; Start 11/25/16 at 17:00; Stop at 17:00; Status DC Spironolactone (Aldactone) 25 mg DAILY PO ; Start 11/25/16 at 15:00; Stop at 16:44; Status DC Carvedilol (Coreg) 12.5 mg BIDWMEALS PO ; Start 11/25/16 at 17:00; Stop at 17:00; Status DC Atorvastatin Calcium (Lipitor) 5 mg QHS PO Last administered on 11/25/16 20:39 ; Start 11/25/16 at 21:00 Apixaban (Eliquis) 5 mg BID PO Last administered on 11/25/16 20:39; Start at 21:00 Bupropion HCl (Wellbutrin) 100 mg BID PO Last administered on 11/25/16 20:39; Start 11/25/16 at 21:00 Cefpodoxime Proxetil (Vantin) 200 mg BID PO Last administered on 11/25/16 20: 39; Start 11/25/16 at 21:00 Cetirizine HCl (Zyrtec) 10 mg DAILY PO ; Start 11/25/16 at 17:00 Ferrous Sulfate (Feosol) 325 mg DAILY PO ; Start 11/25/16 at 17:00 Lisinopril (Prinivil) 5 mg HS PO Last administered on 11/25/16 20:40; Start at 21:00 Metoprolol Succinate (Toprol Xl) 100 mg DAILY PO ; Start 11/25/16 at 17:00 Pantoprazole Sodium (Protonix) 40 mg DAILYAC PO ; Start 11/25/16 at 17:00 Ascorbic Acid (Vitamin C) 250 mg BID PO Last administered on 11/25/16 20:39; Start 11/25/16 at 21:00 Oxycodone HCl (Roxicodone) 10 mg PRN Q4HRS PRN PO MODERATE TO SEVERE PAIN Last administered on 11/26/16 08:16; Start 11/25/16 at 17:15 Oxycodone HCl (Roxicodone) 20 mg PRN Q4HRS PRN PO SEVERE PAIN Last administered on 11/26/16 02:29; Start 11/25/16 at 17:15 Regadenoson (Lexiscan) 0.4 mg 1X ONCE IV ; Start 11/26/16 at 10:00; Stop at 10:01; Status DC Info (Anti-Coagulation Monitoring By Pharmacy) 1 each PRN DAILY PRN [facility] SEE COMMENTS; Start 11/26/16 at 10:15 Active Scripts Active Reported Amiodarone Hcl 200 Mg Tablet 1 Tab PO DAILY Oxycodone HCl 10 Mg/0.5 Ml Syringe 10 Mg PO PRN Q4HRS PRN Oxycodone HCl 10 Mg/0.5 Ml Syringe 20 Mg PO PRN Q4HRS PRN Bupropion Hcl 100 Mg Tablet 100 Mg PO BID Metoprolol Succinate 50 Mg Tab.er.24h 100 Mg PO DAILY Lisinopril 5 Mg Tablet 1 Tab PO HS Senna-Docusate Sodium Tablet (Sennosides/Docusate Sodium) 1 Each Tablet 1 Each PO PRN BID PRN Zyrtec (Cetirizine Hcl) 10 Mg Tablet 1 Tab PO DAILY Cefpodoxime Proxetil 200 Mg Tablet 1 Tab PO BID Benzonatate 100 Mg Capsule 1 Cap PO PRN TID PRN Ascorbic Acid 250 Mg Tablet 250 Mg PO BID Eliquis (Apixaban) 5 Mg Tablet 5 Mg PO BID Protonix (Pantoprazole Sodium) 40 Mg Tablet.dr 1 Tab PO DAILY Ferrous Sulfate 325 Mg Tablet 1 Tab PO DAILY Spironolactone 25 Mg Tablet 0.5 Tab PO DAILY [Duoneb] [Combivent] [Proventil] [Symbicort] Pravastatin Sodium 10 Mg Tablet 0.5 Tab PO HS Aspirin 81 Mg Tab.chew 1 Tab PO DAILY Vitals/I & O Vital Sign - Last 24 Hours 11/25/16 11/25/16 11/25/16 11/25/16 14:19 15:00 17:30 19:50 Temp 97.5 98.0 97.5 98.0 Pulse 70 78 Resp 18 22 B/P 143/75 140/74 Pulse Ox 93 98 O2 Delivery Nasal Cannula Nasal Cannula Nasal Cannula Nasal Cannula O2 Flow Rate 3.0 3.0 3.0 3.0 11/25/16 11/25/16 11/25/16 11/25/16 20:00 20:40 20:42 22:50 Temp 97.5 97.5 Pulse 78 72 Resp 20 20 B/P 140/74 139/64 Pulse Ox 98 99 O2 Delivery Nasal Cannula Nasal Cannula Nasal Cannula O2 Flow Rate 3.0 3.0 3.0 11/26/16 11/26/16 11/26/16 11/26/16 02:29 02:55 03:30 07:31 Temp 98.0 97.9 98.0 97.9 Pulse 68 68 Resp 18 18 18 22 B/P 164/74 149/70 Pulse Ox 99 100 100 99 O2 Delivery Nasal Cannula Nasal Cannula Nasal Cannula Nasal Cannula O2 Flow Rate 3.0 3.0 3.0 3.0 11/26/16 11/26/16 11/26/16 07:31 08:16 09:15 Resp 22 22 Pulse Ox 99 99 O2 Delivery Nasal Cannula Nasal Cannula Nasal Cannula O2 Flow Rate 3.0 3.0 3.0 Intake and Output 11/25/16 11/25/16 11/26/16 15:00 23:00 07:00 Intake Total 775 ml 480 ml Output Total 200 ml 500 ml Balance 575 ml -20 ml SELENE MARTÍNEZ MD Nov 26, 2016 10:18
[2016-11-26] MEDS: ANTI-COAG MONITOR BY PHARMACY. MC PRN ×2 (10:35→10:36)
[2016-11-26 10:59] VITALS: BP 151/74
[2016-11-26] MEDS: buPROPion 100 MG TABLET PO SCH ×2 (11:45→22:22)
[2016-11-26] MEDS: DOCUSATE SODIUM 100 MG CAPSULE PO SCH ×2 (11:46→21:00)
[2016-11-26] MEDS: CEFPODOXIME PROXETIL 200 MG TABLET PO SCH ×2 (11:46→22:20)
[2016-11-26] MEDS: ASPIRIN 81 MG TAB.CHEW PO SCH (11:46)
[2016-11-26] MEDS: CETIRIZINE HCL 10 MG TABLET PO SCH (11:46)
[2016-11-26] MEDS: FERROUS SULFATE 325 MG TABLET PO SCH (11:46)
[2016-11-26] MEDS: METOPROLOL SUCC 24HR ER 50 MG TAB.ER.24H. PO SCH (11:47)
[2016-11-26] MEDS: FOLIC ACID 1 MG TABLET PO SCH (11:47)
[2016-11-26] MEDS: APIXABAN 5 MG TABLET. PO SCH ×2 (11:48→22:20)
[2016-11-26] MEDS: PANTOPRAZOLE 40 MG TABLET. PO SCH (11:48)
[2016-11-26] MEDS: ASCORBIC ACID 500 MG TABLET PO SCH ×2 (11:48→22:20)
[2016-11-26 12:19] LABS: ANISOCYTOSIS SLIGHT; PLT ESTIMATE ADEQUATE (ADEQUATE); POLYCHROMASIA SLIGHT
[2016-11-26 12:20] LABS: OVALOCYTES FEW
--- NOTE | 2016-11-26 13:10 | RAD ---
APPROVED REPORT Test Type: Pharmacological Stress Nurse/Tech: CHRISTOPHER Donato RN Test Indications: Dyspnea, CHF, decreased EF Cardiac History: CHF, CABG, HTN, see EHR Medications: see EHR Medical History: see EHR Resting ECG: SR with biphasic/inverted twaves inferolateral Resting Heart Rate: 69 bpm Resting Blood Pressure: 141/67mmHg Pretest Chest Pain: No chest pain Nurse/Tech Notes Lungs CTA, heart tones WNL Consent: The procedure was explained to the patient in lay terms. Informed consent was witnessed. Ken eout was entered into [employer]. History and Stress Test performed by KYRIE Szymanski Pharm. Details Pharmacologic stress testing was performed using 0.4mg per 5ml of regadenoson given intravenously ove r 7-10 seconds. Stress Symptoms Dyspnea, no chest pain POST EXERCISE Reason for Termination: Infusion complete Max HR: 92 bpm 71% of Maximum Predicted HR: 129 bpm Max Blood Pressure: 140/66mmHg Chest Pain: No. Arrhythmia: No. ST Change: No. No change in twaves II,III,AVF,V4-V6 INTERPRETATION Stress EKG Conclusion: No acute changes were noted. Imaging Protocol IMAGE PROTOCOL: Rest Tc-99m/stress Tc-99m 1 day Rest: Stress: Viability: Radiopharm.Tc99m [id number] Sestamibi Dose12.6mCi 33.5mCi Duration 15min. 10min. Img Date 11/26/2016 11/26/2016 Inj-Img [id number]. 60min. Rest Admin Site:IV - Right ForearmAdministrator:KYRIE Szymanski Stress Admin Site: IV - Right ForearmAdministrator: CRYSTAL Bernstein, ARRT (R)(N) STRESS DATA End Diast. Vol.281.0mlAv. Heart Rate74.0bpm End Syst. Vol.154.0mlCO Index BSA0.0L/min Myocardial Roel414.0gEject. Mvjmpnoo41.0% Stress Rates Pk. Fill Rate1.19EDV/secLVtime Pk. Fill 182.25msec Pk. Empty Rate2.58ESV/secLVtime Pk. Yltjq082.95msec 1/3 Pk. Fill0.62EDV/sec Stress Scores Regional WT1.00Summed WT16.00 Regional WM0.00Summed WM26.00 LV Perf. Quant 17 Seg. SSS22.00 17 Seg. SRS19.00 17 Seg. SDS3.00 Stress Defect Extent (% LAD)64.40Rest Defect Extent (% LAD)68.10Rev. Defect Extent (% LAD)0.00 Stress Defect Extent (% LCX) 21.30Rest Defect Extent (% LCX)13.80Rev. Defect Extent (% LCX)15.00 Stress Defect Extent (% RCA)18.90Rest Defect Extent (% RCA)24.40Rev. Defect Extent (% RCA)0.00 Stress Defect Extent (% PRAMOD)44.80Rest Defect Extent (% PRAMOD)46.50Rev. Defect Extent (% PRAMOD)4.30 Conclusion 1. The baseline EKG showed nonspecific STT wave changes. 2. No further electrocardiographic changes suggestive of myocardial ischemia with pharmacological str ess 3. Large area of perfusion defect occupying the septum ,apex and portions of the lateral and inferio r coronado. 4. This is predomninantly a scar with a small area of ischemia over the lateral wall. 5. Diffuse decrease in wall motion and wall thickening with an ejection fraction of 45%. 6. Scan indicates low to moderate risk in future cardiac events
[2016-11-26] MEDS ORDERED: FUROSEMIDE 20 MG/2 ML VIAL IVP ONE (13:15)
[2016-11-26 14:59] VITALS: BP 130/57
[2016-11-26] MEDS ORDERED: FUROSEMIDE 40 MG/4 ML VIAL IVP ONE (17:45)
[2016-11-26] MEDS: POTASSIUM CHLORIDE 20 MEQ TABLET.ER. PO SCH (18:09)
[2016-11-26 19:00] VITALS: BP 147/58
[2016-11-26] MEDS: FUROSEMIDE 40 MG/4 ML VIAL IVP SCH (21:00)
[2016-11-26] MEDS: ATORVASTATIN CALCIUM 10 MG TABLET. PO SCH (22:21)
[2016-11-26] MEDS: LISINOPRIL 5 MG TABLET. PO SCH (22:22)
[2016-11-26 23:00] VITALS: BP 136/70
[2016-11-27 03:00] VITALS: BP 152/77
[2016-11-27] MEDS: OXYCODONE IR 5 MG TABLET. PO PRN ×5 (03:58→20:40)
[2016-11-27 07:00] VITALS: BP 169/73
[2016-11-27] MEDS: PANTOPRAZOLE 40 MG TABLET. PO SCH (08:30)
[2016-11-27] MEDS: POTASSIUM CHLORIDE 20 MEQ TABLET.ER. PO SCH (08:30)
[2016-11-27] MEDS: FOLIC ACID 1 MG TABLET PO SCH (08:30)
[2016-11-27] MEDS: FUROSEMIDE 40 MG/4 ML VIAL IVP SCH ×2 (08:30→20:40)
[2016-11-27] MEDS: CEFPODOXIME PROXETIL 200 MG TABLET PO SCH ×2 (08:30→20:41)
[2016-11-27] MEDS: DOCUSATE SODIUM 100 MG CAPSULE PO SCH ×2 (08:31→20:41)
[2016-11-27] MEDS: APIXABAN 5 MG TABLET. PO SCH ×2 (08:31→20:41)
[2016-11-27] MEDS: METOPROLOL SUCC 24HR ER 50 MG TAB.ER.24H. PO SCH (08:31)
[2016-11-27] MEDS: CETIRIZINE HCL 10 MG TABLET PO SCH (08:31)
[2016-11-27] MEDS: ASCORBIC ACID 500 MG TABLET PO SCH ×2 (08:31→20:42)
[2016-11-27] MEDS: buPROPion 100 MG TABLET PO SCH ×2 (08:31→20:42)
[2016-11-27] MEDS: AMIODARONE HCL 200 MG TABLET PO SCH (08:31)
[2016-11-27] MEDS: FERROUS SULFATE 325 MG TABLET PO SCH (08:31)
[2016-11-27] MEDS: ASPIRIN 81 MG TAB.CHEW PO SCH (08:31)
--- NOTE | 2016-11-27 09:37 | PDOC ---
PROGRESS NOTES Subjective Subjective Patient is tolerating the lasix and reports he feels it is working to reduce swelling in his LE. He continues to report dyspnea. Patient denies any chest pain or other cardiac complaints. Objective Objective Vital Signs Date Time Temp Pulse Resp B/P Pulse Ox O2 Delivery O2 Flow Rate FiO2 11/27/16 08:42 22 94 Nasal Cannula 3.0 11/27/16 08:31 64 152/77 11/27/16 07:00 97.9 97.9 Intake and Output 11/27/16 07:00 Intake Total 300 ml Output Total 1500 ml Balance -1200 ml Intake Oral 300 ml Output Urine Total 1500 ml Physical Exam Abdomen: Normal bowel sounds Heart: Regular rate (rate in the 60s), Normal S1, Normal S2 Extremities: No clubbing, No cyanosis, Normal pulses, Other (mild edema of LE improving) General: Alert, Cooperative, No acute distress Lungs: Clear to auscultation, Other (decrased breath sounds) Neck: No JVD Assessment Assessment 66 year old patient with COPD, CAD, chronic Afib with stable EF of 45% with ICD and a recent history of a CVA originally presented to the [facility] for dyspnea and was transferred for mildly elevated troponins. His EKG was normal sinus rhythm with non specific ST changes. He reports a recent heart cath at without stent placement. His MPI is significant for the followin. The baseline EKG showed nonspecific STT wave changes. 2. No further electrocardiographic changes suggestive of myocardial ischemia with pharmacological stress 3. Large area of perfusion defect occupying the septum ,apex and portions of the lateral and inferior coronado. 4. This is predomninantly a scar with a small area of ischemia over the lateral wall. 5. Diffuse decrease in wall motion and wall thickening with an ejection fraction of 45%. 6. Scan indicates low to moderate risk in future cardiac events The patient is likely having a mild CHF/CODP exacerbation which caused a slight elevation in his troponins. Problems Medical Problems: (1) COPD (chronic obstructive pulmonary disease) Status: Acute Plan Plan of Care Will continue with IV lasix for now. Thank you for including me in the care of this patient. Comment Review of Relevant I have reviewed the following items meka (where applicable) has been applied. Labs Laboratory Tests Test 11/25/16 17:15 11/26/16 03:40 Nasal Screen MRSA (PCR) Positive (Negative) White Blood Count 6.7x10^3/uL (4.0-11.0) Red Blood Count 2.83x10^6/uL (4.30-5.70) Hemoglobin 8.7g/dL (13.0-17.5) Hematocrit 25.9% (39.0-53.0) Mean Corpuscular Volume 91fL (79-100) Mean Corpuscular Hemoglobin 31pg (25-35) Mean Corpuscular Hemoglobin Concent 34g/dL (31-37) Red Cell Distribution Width 17.5% (11.5-14.5) Platelet Count 146x10^3/uL (140-400) Neutrophils (%) (Auto) 87% (31-73) Lymphocytes (%) (Auto) 5% (24-48) Monocytes (%) (Auto) 8% (0-9) Eosinophils (%) (Auto) 0% (0-3) Basophils (%) (Auto) 0% (0-3) Neutrophils # (Auto) 5.8x10^3uL (1.8-7.7) Lymphocytes # (Auto) 0.4x10^3/uL (1.0-4.8) Monocytes # (Auto) 0.5x10^3/uL (0.0-1.1) Eosinophils # (Auto) 0.0x10^3/uL (0.0-0.7) Basophils # (Auto) 0.0x10^3/uL (0.0-0.2) Segmented Neutrophils % 82% (35-66) Band Neutrophils % 11% (0-9) Lymphocytes % 4% (24-48) Monocytes % 3% (0-10) Platelet Estimate Adequate (ADEQUATE) Polychromasia Slight Basophilic Stippling Present Anisocytosis Slight Ovalocytes Few Prothrombin Time 15.5SEC (11.7-14.0) Prothromb Time International Ratio 1.3 (0.8-1.1) Sodium Level 144mmol/L (136-145) Potassium Level 4.0mmol/L (3.5-5.1) Chloride Level 104mmol/L (98-107) Carbon Dioxide Level 34mmol/L (21-32) Anion Gap 6 (6-14) Blood Urea Nitrogen 28mg/dL (8-26) Creatinine 0.7mg/dL (0.7-1.3) Estimated GFR (Cockcroft-Gault) 112.1 Glucose Level 138mg/dL (70-99) Calcium Level 9.1mg/dL (8.5-10.1) Medications Current Medications Ondansetron HCl (Zofran) 4 mg PRN Q6HRS PRN IV NAUSEA/VOMITING; Start 11/25/16 at 14:30 Prochlorperazine Edisylate (Compazine) 10 mg PRN Q6HRS PRN IV NAUSEA/VOMITING; Start 11/25/16 at 14:30 Prochlorperazine (Compazine) 25 mg PRN Q12HR PRN [place] NAUSEA/VOMITING; Start at 14:30 Al Hydrox/Mg Hydrox/Simethicone (Mylanta Plus Xs) 30 ml PRN Q3HRS PRN PO HEARTBURN / GAS; Start 11/25/16 at 14:30 Calcium Carbonate/ Glycine (Tums) 500 mg PRN Q3HRS PRN PO UPSET STOMACH; Start 11/25/16 at 14:30 Zolpidem Tartrate (Ambien) 5 mg PRN QHS PRN PO INSOMNIA, MAY REPEAT IN 1HR; Start 11/25/16 at 14:30 Oxycodone HCl (Roxicodone) 5 mg PRN Q3HRS PRN PO BREAKTHROUGH PAIN; Start 11/25 at 14:30; Stop 11/25/16 at 16:44; Status DC Morphine Sulfate 2 mg PRN Q2HR PRN IV PAIN; Start 11/25/16 at 14:30 Docusate Sodium (Colace) 100 mg BID PO Last administered on 11/26/16t 11:46; Start 11/25/16 at 21:00 Magnesium Hydroxide (Milk Of Magnesia) 2,400 mg PRN Q12HR PRN PO CONSTIPATION; Start 11/25/16 at 14:30 Lactulose 20 gm PRN Q12HR PRN PO CONSTIPATION; Start 11/25/16 at 14:30 Heparin Sodium (Porcine) 5,000 unit Q8HRS SQ ; Start 11/25/16 at 15:15; Stop at 15:42; Status DC Heparin Sodium (Porcine) 5,000 unit Q12HR SQ ; Start 11/25/16 at 21:00; Stop at 21:00; Status DC Enoxaparin Sodium (Lovenox 40mg Syringe) 40 mg Q24H SQ ; Start 11/25/16 at 14:30 ; Stop 11/25/16 at 15:42; Status DC Amiodarone HCl (Cordarone) 200 mg DAILY PO Last administered on 11/27/16 08:31 ; Start 11/25/16 at 15:00 Aspirin (Children'S Aspirin) 81 mg DAILY PO Last administered on 11/27/16 08: 31; Start 11/25/16 at 15:00 Folic Acid (Folic Acid) 1 mg DAILY PO Last administered on 11/27/16 08:30; Start 11/25/16 at 15:00 Furosemide (Lasix) 20 mg BID92 PO ; Start 11/25/16 at 15:00; Stop 11/25/16 at 16 :44; Status DC Lisinopril (Prinivil) 40 mg DAILY PO ; Start 11/25/16 at 15:00; Stop 11/25/16 at 16:44; Status DC Oxycodone HCl (Roxicodone) 30 mg QID PO ; Start 11/25/16 at 17:00; Stop at 17:00; Status DC Spironolactone (Aldactone) 25 mg DAILY PO ; Start 11/25/16 at 15:00; Stop at 16:44; Status DC Carvedilol (Coreg) 12.5 mg BIDWMEALS PO ; Start 11/25/16 at 17:00; Stop at 17:00; Status DC Atorvastatin Calcium (Lipitor) 5 mg QHS PO Last administered on 11/26/16 22:21 ; Start 11/25/16 at 21:00 Apixaban (Eliquis) 5 mg BID PO Last administered on 11/27/16 08:31; Start at 21:00 Bupropion HCl (Wellbutrin) 100 mg BID PO Last administered on 11/27/16 08:31; Start 11/25/16 at 21:00 Cefpodoxime Proxetil (Vantin) 200 mg BID PO Last administered on 11/27/16 08: 30; Start 11/25/16 at 21:00 Cetirizine HCl (Zyrtec) 10 mg DAILY PO Last administered on 11/27/16 08:31; Start 11/25/16 at 17:00 Ferrous Sulfate (Feosol) 325 mg DAILY PO Last administered on 11/27/16 08:31; Start 11/25/16 at 17:00 Lisinopril (Prinivil) 5 mg HS PO Last administered on 11/26/16 22:22; Start at 21:00 Metoprolol Succinate (Toprol Xl) 100 mg DAILY PO Last administered on 08:31; Start 11/25/16 at 17:00 Pantoprazole Sodium (Protonix) 40 mg DAILYAC PO Last administered on 11/27/16 08:30; Start 11/25/16 at 17:00 Ascorbic Acid (Vitamin C) 250 mg BID PO Last administered on 11/27/16 08:31; Start 11/25/16 at 21:00 Oxycodone HCl (Roxicodone) 10 mg PRN Q4HRS PRN PO MODERATE TO SEVERE PAIN Last administered on 11/27/16 08:42; Start 11/25/16 at 17:15 Oxycodone HCl (Roxicodone) 20 mg PRN Q4HRS PRN PO SEVERE PAIN Last administered on 11/27/16 03:58; Start 11/25/16 at 17:15 Regadenoson (Lexiscan) 0.4 mg 1X ONCE IV Last administered on 11/26/16 11:05 ; Start 11/26/16 at 10:00; Stop 11/26/16 at 10:01; Status DC Info (Anti-Coagulation Monitoring By Pharmacy) 1 each PRN DAILY PRN MC SEE COMMENTS Last administered on 11/26/16 10:36; Start 11/26/16 at 10:15 Furosemide (Lasix) 20 mg 1X ONCE IVP Last administered on 11/26/16 13:40; Start 11/26/16 at 13:15; Stop 11/26/16 at 13:25; Status DC Furosemide (Lasix) 40 mg 1X ONCE IVP Last administered on 11/26/16 18:09; Start 11/26/16 at 17:45; Stop 11/26/16 at 17:48; Status DC Furosemide (Lasix) 40 mg Q12HR IVP Last administered on 11/27/16 08:30; Start 11/26/16 at 21:00 Potassium Chloride (Klor-Con) 20 meq [id number] PO Last administered on 08:30; Start 11/26/16 at 17:45 Active Scripts Active Reported Amiodarone Hcl 200 Mg Tablet 1 Tab PO DAILY Oxycodone HCl 10 Mg/0.5 Ml Syringe 10 Mg PO PRN Q4HRS PRN Oxycodone HCl 10 Mg/0.5 Ml Syringe 20 Mg PO PRN Q4HRS PRN Bupropion Hcl 100 Mg Tablet 100 Mg PO BID Metoprolol Succinate 50 Mg Tab.er.24h 100 Mg PO DAILY Lisinopril 5 Mg Tablet 1 Tab PO HS Senna-Docusate Sodium Tablet (Sennosides/Docusate Sodium) 1 Each Tablet 1 Each PO PRN BID PRN Zyrtec (Cetirizine Hcl) 10 Mg Tablet 1 Tab PO DAILY Cefpodoxime Proxetil 200 Mg Tablet 1 Tab PO BID Benzonatate 100 Mg Capsule 1 Cap PO PRN TID PRN Ascorbic Acid 250 Mg Tablet 250 Mg PO BID Eliquis (Apixaban) 5 Mg Tablet 5 Mg PO BID Protonix (Pantoprazole Sodium) 40 Mg Tablet.dr 1 Tab PO DAILY Ferrous Sulfate 325 Mg Tablet 1 Tab PO DAILY Spironolactone 25 Mg Tablet 0.5 Tab PO DAILY [Duoneb] [Combivent] [Proventil] [Symbicort] Pravastatin Sodium 10 Mg Tablet 0.5 Tab PO HS Aspirin 81 Mg Tab.chew 1 Tab PO DAILY Vitals/I & O Vital Sign - Last 24 Hours 11/26/16 11/26/16 11/26/16 11/26/16 10:59 11:47 11:49 12:45 Temp 97.2 97.2 Pulse 71 71 Resp 22 B/P 151/74 151/74 Pulse Ox 99 99 O2 Delivery Nasal Cannula Nasal Cannula O2 Flow Rate 3.0 3.0 11/26/16 11/26/16 11/26/16 11/26/16 14:59 18:10 19:00 19:15 Temp 98.8 98.1 98.8 98.1 Pulse 74 72 Resp 20 18 B/P 130/57 147/58 Pulse Ox 99 99 100 100 O2 Delivery Nasal Cannula Nasal Cannula Nasal Cannula Nasal Cannula O2 Flow Rate 3.0 3.0 3.0 3.0 11/26/16 11/26/16 11/26/16 11/26/16 20:00 22:22 23:00 23:34 Temp 97.9 97.9 Pulse 72 66 Resp 18 18 B/P 147/58 136/70 Pulse Ox 100 100 O2 Delivery Nasal Cannula Nasal Cannula Nasal Cannula O2 Flow Rate 3.0 3.0 11/27/16 11/27/16 11/27/16 11/27/16 03:00 03:58 05:00 07:00 Temp 98.1 97.9 98.1 97.9 Pulse 64 59 Resp 16 B/P 152/77 169/73 Pulse Ox 95 95 95 94 O2 Delivery Nasal Cannula Nasal Cannula Nasal Cannula Nasal Cannula O2 Flow Rate 3.0 3.0 3.0 3.0 11/27/16 11/27/16 11/27/16 11/27/16 07:45 08:31 08:31 08:42 Pulse 64 64 Resp 22 B/P 152/77 152/77 Pulse Ox 94 O2 Delivery Nasal Cannula Nasal Cannula O2 Flow Rate 3.0 3.0 Intake and Output 11/26/16 11/26/16 11/27/16 15:00 23:00 07:00 Intake Total 300 ml Output Total 200 ml 800 ml 500 ml Balance -200 ml -500 ml -500 ml KAREEN LEE MD Nov 27, 2016 09:37
[2016-11-27 09:49] LABS: CALCIUM 9.4 mg/dL (8.5-10.1); CREATININE 0.9 mg/dL (0.7-1.3); GFR 83.9; POTASSIUM 3.8 mmol/L (3.5-5.1)
--- NOTE | 2016-11-27 10:04 | PDOC ---
PROGRESS NOTES Chief Complaint Chief Complaint cc: elevated troponin 1. Hypoxic respiratory failure POA sec to malfunctioning O2 tank 2. Troponin elevation x 3, known CAD indwelling PCI 4. CHF, 5. Chronic atrial fib 6. COPD Plan Diuresis iv lasix BID stress test fixed defect, awaiting cardiology recommendations. recent cath at [facility] monitor electrolytes Labs reviewed. sw to help disposition plan supportive care. History of Present Illness History of Present Illness sob no chest pain no fever no chills. Vitals Vitals Vital Signs Date Time Temp Pulse Resp B/P Pulse Ox O2 Delivery O2 Flow Rate FiO2 11/27/16 08:42 22 94 Nasal Cannula 3.0 11/27/16 08:31 64 152/77 11/27/16 07:00 97.9 97.9 Physical Exam General: Alert, Cooperative, No acute distress Heart: Regular rate (rate in the 60s), Normal S1, Normal S2 Lungs: Other (decreased BS) Abdomen: Normal bowel sounds Extremities: No clubbing, No cyanosis, Normal pulses, Other (mild edema of LE improving) Skin: No rashes, No breakdown, No significant lesion Labs LABS Laboratory Tests Test 11/27/16 08:40 Sodium Level 145mmol/L (136-145) Potassium Level 3.8mmol/L (3.5-5.1) Chloride Level 103mmol/L (98-107) Carbon Dioxide Level 42mmol/L (21-32) Anion Gap 0 (6-14) Blood Urea Nitrogen 30mg/dL (8-26) Creatinine 0.9mg/dL (0.7-1.3) Estimated GFR (Cockcroft-Gault) 83.9 Glucose Level 85mg/dL (70-99) Calcium Level 9.4mg/dL (8.5-10.1) Assessment and Plan Assessmemt and Plan Problems Medical Problems: (1) COPD (chronic obstructive pulmonary disease) Status: Acute Problems: Comment Review of Relevant I have reviewed the following items meka (where applicable) has been applied. Labs Laboratory Tests Test 11/25/16 17:15 11/26/16 03:40 11/27/16 08:40 Nasal Screen MRSA (PCR) Positive (Negative) White Blood Count 6.7x10^3/uL (4.0-11.0) Red Blood Count 2.83x10^6/uL (4.30-5.70) Hemoglobin 8.7g/dL (13.0-17.5) Hematocrit 25.9% (39.0-53.0) Mean Corpuscular Volume 91fL (79-100) Mean Corpuscular Hemoglobin 31pg (25-35) Mean Corpuscular Hemoglobin Concent 34g/dL (31-37) Red Cell Distribution Width 17.5% (11.5-14.5) Platelet Count 146x10^3/uL (140-400) Neutrophils (%) (Auto) 87% (31-73) Lymphocytes (%) (Auto) 5% (24-48) Monocytes (%) (Auto) 8% (0-9) Eosinophils (%) (Auto) 0% (0-3) Basophils (%) (Auto) 0% (0-3) Neutrophils # (Auto) 5.8x10^3uL (1.8-7.7) Lymphocytes # (Auto) 0.4x10^3/uL (1.0-4.8) Monocytes # (Auto) 0.5x10^3/uL (0.0-1.1) Eosinophils # (Auto) 0.0x10^3/uL (0.0-0.7) Basophils # (Auto) 0.0x10^3/uL (0.0-0.2) Segmented Neutrophils % 82% (35-66) Band Neutrophils % 11% (0-9) Lymphocytes % 4% (24-48) Monocytes % 3% (0-10) Platelet Estimate Adequate (ADEQUATE) Polychromasia Slight Basophilic Stippling Present Anisocytosis Slight Ovalocytes Few Prothrombin Time 15.5SEC (11.7-14.0) Prothromb Time International Ratio 1.3 (0.8-1.1) Sodium Level 144mmol/L (136-145) 145mmol/L (136-145) Potassium Level 4.0mmol/L (3.5-5.1) 3.8mmol/L (3.5-5.1) Chloride Level 104mmol/L (98-107) 103mmol/L (98-107) Carbon Dioxide Level 34mmol/L (21-32) 42mmol/L (21-32) Anion Gap 6 (6-14) 0 (6-14) Blood Urea Nitrogen 28mg/dL (8-26) 30mg/dL (8-26) Creatinine 0.7mg/dL (0.7-1.3) 0.9mg/dL (0.7-1.3) Estimated GFR (Cockcroft-Gault) 112.1 83.9 Glucose Level 138mg/dL (70-99) 85mg/dL (70-99) Calcium Level 9.1mg/dL (8.5-10.1) 9.4mg/dL (8.5-10.1) Laboratory Tests Test 11/27/16 08:40 Sodium Level 145mmol/L (136-145) Potassium Level 3.8mmol/L (3.5-5.1) Chloride Level 103mmol/L (98-107) Carbon Dioxide Level 42mmol/L (21-32) Anion Gap 0 (6-14) Blood Urea Nitrogen 30mg/dL (8-26) Creatinine 0.9mg/dL (0.7-1.3) Estimated GFR (Cockcroft-Gault) 83.9 Glucose Level 85mg/dL (70-99) Calcium Level 9.4mg/dL (8.5-10.1) Medications Current Medications Ondansetron HCl (Zofran) 4 mg PRN Q6HRS PRN IV NAUSEA/VOMITING; Start 11/25/16 at 14:30 Prochlorperazine Edisylate (Compazine) 10 mg PRN Q6HRS PRN IV NAUSEA/VOMITING; Start 11/25/16 at 14:30 Prochlorperazine (Compazine) 25 mg PRN Q12HR PRN IN NAUSEA/VOMITING; Start at 14:30 Al Hydrox/Mg Hydrox/Simethicone (Mylanta Plus Xs) 30 ml PRN Q3HRS PRN PO HEARTBURN / GAS; Start 11/25/16 at 14:30 Calcium Carbonate/ Glycine (Tums) 500 mg PRN Q3HRS PRN PO UPSET STOMACH; Start 11/25/16 at 14:30 Zolpidem Tartrate (Ambien) 5 mg PRN QHS PRN PO INSOMNIA, MAY REPEAT IN 1HR; Start 11/25/16 at 14:30 Oxycodone HCl (Roxicodone) 5 mg PRN Q3HRS PRN PO BREAKTHROUGH PAIN; Start 11/25 at 14:30; Stop 11/25/16 at 16:44; Status DC Morphine Sulfate 2 mg PRN Q2HR PRN IV PAIN; Start 11/25/16 at 14:30 Docusate Sodium (Colace) 100 mg BID PO Last administered on 11/26/16 11:46; Start 11/25/16 at 21:00 Magnesium Hydroxide (Milk Of Magnesia) 2,400 mg PRN Q12HR PRN PO CONSTIPATION; Start 11/25/16 at 14:30 Lactulose 20 gm PRN Q12HR PRN PO CONSTIPATION; Start 11/25/16 at 14:30 Heparin Sodium (Porcine) 5,000 unit Q8HRS SQ ; Start 11/25/16 at 15:15; Stop at 15:42; Status DC Heparin Sodium (Porcine) 5,000 unit Q12HR SQ ; Start 11/25/16 at 21:00; Stop at 21:00; Status DC Enoxaparin Sodium (Lovenox 40mg Syringe) 40 mg Q24H SQ ; Start 11/25/16 at 14:30 ; Stop 11/25/16 at 15:42; Status DC Amiodarone HCl (Cordarone) 200 mg DAILY PO Last administered on 11/27/16 08:31 ; Start 11/25/16 at 15:00 Aspirin (Children'S Aspirin) 81 mg DAILY PO Last administered on 11/27/16 08: 31; Start 11/25/16 at 15:00 Folic Acid (Folic Acid) 1 mg DAILY PO Last administered on 11/27/16 08:30; Start 11/25/16 at 15:00 Furosemide (Lasix) 20 mg BID92 PO ; Start 11/25/16 at 15:00; Stop 11/25/16 at 16 :44; Status DC Lisinopril (Prinivil) 40 mg DAILY PO ; Start 11/25/16 at 15:00; Stop 11/25/16 at 16:44; Status DC Oxycodone HCl (Roxicodone) 30 mg QID PO ; Start 11/25/16 at 17:00; Stop at 17:00; Status DC Spironolactone (Aldactone) 25 mg DAILY PO ; Start 11/25/16 at 15:00; Stop at 16:44; Status DC Carvedilol (Coreg) 12.5 mg BIDWMEALS PO ; Start 11/25/16 at 17:00; Stop at 17:00; Status DC Atorvastatin Calcium (Lipitor) 5 mg QHS PO Last administered on 11/26/16 22:21 ; Start 11/25/16 at 21:00 Apixaban (Eliquis) 5 mg BID PO Last administered on 11/27/16 08:31; Start at 21:00 Bupropion HCl (Wellbutrin) 100 mg BID PO Last administered on 11/27/16 08:31; Start 11/25/16 at 21:00 Cefpodoxime Proxetil (Vantin) 200 mg BID PO Last administered on 11/27/16 08: 30; Start 11/25/16 at 21:00 Cetirizine HCl (Zyrtec) 10 mg DAILY PO Last administered on 11/27/16 08:31; Start 11/25/16 at 17:00 Ferrous Sulfate (Feosol) 325 mg DAILY PO Last administered on 11/27/16 08:31; Start 11/25/16 at 17:00 Lisinopril (Prinivil) 5 mg HS PO Last administered on 11/26/16 22:22; Start at 21:00 Metoprolol Succinate (Toprol Xl) 100 mg DAILY PO Last administered on 08:31; Start 11/25/16 at 17:00 Pantoprazole Sodium (Protonix) 40 mg DAILYAC PO Last administered on 11/27/16 08:30; Start 11/25/16 at 17:00 Ascorbic Acid (Vitamin C) 250 mg BID PO Last administered on 11/27/16 08:31; Start 11/25/16 at 21:00 Oxycodone HCl (Roxicodone) 10 mg PRN Q4HRS PRN PO MODERATE TO SEVERE PAIN Last administered on 11/27/16 08:42; Start 11/25/16 at 17:15 Oxycodone HCl (Roxicodone) 20 mg PRN Q4HRS PRN PO SEVERE PAIN Last administered on 11/27/16 03:58; Start 11/25/16 at 17:15 Regadenoson (Lexiscan) 0.4 mg 1X ONCE IV Last administered on 11/26/16 11:05 ; Start 11/26/16 at 10:00; Stop 11/26/16 at 10:01; Status DC Info (Anti-Coagulation Monitoring By Pharmacy) 1 each PRN DAILY PRN MC SEE COMMENTS Last administered on 11/26/16 10:36; Start 11/26/16 at 10:15 Furosemide (Lasix) 20 mg 1X ONCE IVP Last administered on 11/26/16 13:40; Start 11/26/16 at 13:15; Stop 11/26/16 at 13:25; Status DC Furosemide (Lasix) 40 mg 1X ONCE IVP Last administered on 11/26/16 18:09; Start 11/26/16 at 17:45; Stop 11/26/16 at 17:48; Status DC Furosemide (Lasix) 40 mg Q12HR IVP Last administered on 11/27/16 08:30; Start 11/26/16 at 21:00 Potassium Chloride (Klor-Con) 20 meq DAILYWBKFT PO Last administered on 08:30; Start 11/26/16 at 17:45 Active Scripts Active Reported Amiodarone Hcl 200 Mg Tablet 1 Tab PO DAILY Oxycodone HCl 10 Mg/0.5 Ml Syringe 10 Mg PO PRN Q4HRS PRN Oxycodone HCl 10 Mg/0.5 Ml Syringe 20 Mg PO PRN Q4HRS PRN Bupropion Hcl 100 Mg Tablet 100 Mg PO BID Metoprolol Succinate 50 Mg Tab.er.24h 100 Mg PO DAILY Lisinopril 5 Mg Tablet 1 Tab PO HS Senna-Docusate Sodium Tablet (Sennosides/Docusate Sodium) 1 Each Tablet 1 Each PO PRN BID PRN Zyrtec (Cetirizine Hcl) 10 Mg Tablet 1 Tab PO DAILY Cefpodoxime Proxetil 200 Mg Tablet 1 Tab PO BID Benzonatate 100 Mg Capsule 1 Cap PO PRN TID PRN Ascorbic Acid 250 Mg Tablet 250 Mg PO BID Eliquis (Apixaban) 5 Mg Tablet 5 Mg PO BID Protonix (Pantoprazole Sodium) 40 Mg Tablet.dr 1 Tab PO DAILY Ferrous Sulfate 325 Mg Tablet 1 Tab PO DAILY Spironolactone 25 Mg Tablet 0.5 Tab PO DAILY [Duoneb] [Combivent] [Proventil] [Symbicort] Pravastatin Sodium 10 Mg Tablet 0.5 Tab PO HS Aspirin 81 Mg Tab.chew 1 Tab PO DAILY Vitals/I & O Vital Sign - Last 24 Hours 11/26/16 11/26/16 11/26/16 11/26/16 10:59 11:47 11:49 12:45 Temp 97.2 97.2 Pulse 71 71 Resp 22 B/P 151/74 151/74 Pulse Ox 99 99 O2 Delivery Nasal Cannula Nasal Cannula O2 Flow Rate 3.0 3.0 11/26/16 11/26/16 11/26/16 11/26/16 14:59 18:10 19:00 19:15 Temp 98.8 98.1 98.8 98.1 Pulse 74 72 Resp 18 B/P 130/57 147/58 Pulse Ox 99 99 100 100 O2 Delivery Nasal Cannula Nasal Cannula Nasal Cannula Nasal Cannula O2 Flow Rate 3.0 3.0 3.0 3.0 11/26/16 11/26/16 11/26/16 11/26/16 20:00 22:22 23:00 23:34 Temp 97.9 97.9 Pulse 72 66 Resp 18 18 B/P 147/58 136/70 Pulse Ox 100 100 O2 Delivery Nasal Cannula Nasal Cannula Nasal Cannula O2 Flow Rate 3.0 3.0 11/27/16 11/27/16 11/27/16 11/27/16 03:00 03:58 05:00 07:00 Temp 98.1 97.9 98.1 97.9 Pulse 64 59 Resp 16 18 B/P 152/77 169/73 Pulse Ox 95 95 95 94 O2 Delivery Nasal Cannula Nasal Cannula Nasal Cannula Nasal Cannula O2 Flow Rate 3.0 3.0 3.0 3.0 11/27/16 11/27/16 11/27/16 11/27/16 07:45 08:31 08:31 08:42 Pulse 64 64 Resp 22 B/P 152/77 152/77 Pulse Ox 94 O2 Delivery Nasal Cannula Nasal Cannula O2 Flow Rate 3.0 3.0 Intake and Output 11/26/16 11/26/16 11/27/16 15:00 23:00 07:00 Intake Total 300 ml Output Total 200 ml 800 ml 500 ml Balance -200 ml -500 ml -500 ml SELENE MARTÍNEZ MD Nov 27, 2016 10:04
[2016-11-27 11:00] VITALS: BP 128/70
[2016-11-27] MEDS: ANTI-COAG MONITOR BY PHARMACY. MC PRN (11:15)
[2016-11-27 15:00] VITALS: BP 166/75
--- NOTE | 2016-11-27 15:08 | PDOC ---
Provider Note Provider Note Covering for Dr. Santiago. He denies chest pain. He does complain of shortness of breath. Edema legs is much improved. Lungs showed decreased breath sounds but no rales or rhonchi. He is on Lasix 40 mg IV twice a day. Abnormal MPI. He had a recent cardiac catheter in at and no further investigation for his heart is planned. May be discharged when his symptoms have improved. MARTINA REYES MD Nov 27, 2016 15:08
[2016-11-27] MEDS: IPRATRPIUM/ALBUTEROL 0.5/2.5MG 3 ML NEBU. NEB SCH (19:33)
[2016-11-27 19:44] VITALS: BP 177/71
[2016-11-27] MEDS: ATORVASTATIN CALCIUM 10 MG TABLET. PO SCH (20:41)
[2016-11-27] MEDS: LISINOPRIL 5 MG TABLET. PO SCH (20:42)
[2016-11-27 23:26] VITALS: BP 135/63
[2016-11-28] MEDS: OXYCODONE IR 5 MG TABLET. PO PRN ×5 (00:32→20:42)
[2016-11-28 03:17] VITALS: BP 141/70
[2016-11-28 04:53] LABS: BLOOD UREA NITROGEN 28 mg/dL (8-26); CALCIUM 9.3 mg/dL (8.5-10.1); CARBON DIOXIDE 44 mmol/L (21-32); CHLORIDE 102 mmol/L (98-107); GFR 74.3; GLUCOSE 95 mg/dL (70-99); POTASSIUM 3.6 mmol/L (3.5-5.1); SODIUM 144 mmol/L (136-145)
[2016-11-28 07:48] VITALS: BP 157/69
[2016-11-28] MEDS: IPRATRPIUM/ALBUTEROL 0.5/2.5MG 3 ML NEBU. NEB SCH ×4 (08:05→19:24)
[2016-11-28] MEDS: DOCUSATE SODIUM 100 MG CAPSULE PO SCH ×2 (09:00→20:38)
[2016-11-28] MEDS ORDERED: FURO-68 PO (09:56)
[2016-11-28] MEDS ORDERED: POTA10TA17 PO (09:57)
[2016-11-28] MEDS: ANTI-COAG MONITOR BY PHARMACY. MC PRN (09:59)
[2016-11-28] MEDS: ASPIRIN 81 MG TAB.CHEW PO SCH (10:03)
[2016-11-28] MEDS: CEFPODOXIME PROXETIL 200 MG TABLET PO SCH ×2 (10:03→20:39)
[2016-11-28] MEDS: APIXABAN 5 MG TABLET. PO SCH ×2 (10:04→20:40)
[2016-11-28] MEDS: AMIODARONE HCL 200 MG TABLET PO SCH (10:04)
[2016-11-28] MEDS: CETIRIZINE HCL 10 MG TABLET PO SCH (10:05)
[2016-11-28] MEDS: POTASSIUM CHLORIDE 20 MEQ TABLET.ER. PO SCH (10:05)
[2016-11-28] MEDS: PANTOPRAZOLE 40 MG TABLET. PO SCH (10:05)
[2016-11-28] MEDS: buPROPion 100 MG TABLET PO SCH ×2 (10:05→20:39)
[2016-11-28] MEDS: FERROUS SULFATE 325 MG TABLET PO SCH (10:06)
[2016-11-28] MEDS: ASCORBIC ACID 500 MG TABLET PO SCH ×2 (10:06→20:41)
[2016-11-28] MEDS: METOPROLOL SUCC 24HR ER 50 MG TAB.ER.24H. PO SCH (10:06)
[2016-11-28] MEDS: FOLIC ACID 1 MG TABLET PO SCH (10:06)
[2016-11-28] MEDS: FUROSEMIDE 40 MG/4 ML VIAL IVP SCH ×2 (10:08→20:38)
--- NOTE | 2016-11-28 10:14 | PDOC ---
PROGRESS NOTES Subjective Subjective Pt complained of some chronic back pain but denied any chest pain or increase in shortness of breath. Patient expressed concerns about his discharge plans. Objective Objective Vital Signs Date Time Temp Pulse Resp B/P Pulse Ox O2 Delivery O2 Flow Rate FiO2 11/28/16 08:08 94 Nasal Cannula 3.0 11/28/16 07:48 98.2 57 18 157/69 98.2 Intake and Output 11/28/16 07:00 Intake Total 1320 ml Output Total 3250 ml Balance -1930 ml Intake Oral 1320 ml Output Urine Total 3250 ml # Bowel Movements 1 Physical Exam Abdomen: Normal bowel sounds, Soft Heart: Regular rate, Normal S1, Normal S2 Extremities: No clubbing, No cyanosis, Other (trace LE edma, improved since admission) Lungs: Clear to auscultation, Other (slightly diminished air movment) Neck: Supple, No JVD Assessment Assessment Patient is a 66 year old male with COPD, chronic AFib with PCI, CHF with stable EF of 45% who was transferred from the [facility] for some mildly elevated troponins after presenting with shortness of breath. His EKG had non specific ST changes and a MPI was abnormal without acute changes under stress. He had a recent heart cath at without need for further intervention. He has been on lasix IV since admission with improvment in the peripheral edema, his respiratory status is the same or slightly improved but is on 2L NC at baseline. Problems Medical Problems: (1) COPD (chronic obstructive pulmonary disease) Status: Acute Plan Plan of Care Patient is stable from a cardiac standpoint for discharge, please follow up in 2 weeks. Thank you for letting me participate in the care of this patient. Comment Review of Relevant I have reviewed the following items meka (where applicable) has been applied. Labs Laboratory Tests Test 11/27/16 08:40 11/28/16 04:30 Sodium Level 145mmol/L (136-145) 144mmol/L (136-145) Potassium Level 3.8mmol/L (3.5-5.1) 3.6mmol/L (3.5-5.1) Chloride Level 103mmol/L (98-107) 102mmol/L (98-107) Carbon Dioxide Level 42mmol/L (21-32) 44mmol/L (21-32) Anion Gap 0 (6-14) (6-14) Blood Urea Nitrogen 30mg/dL (8-26) 28mg/dL (8-26) Creatinine 0.9mg/dL (0.7-1.3) 1.0mg/dL (0.7-1.3) Estimated GFR (Cockcroft-Gault) 83.9 74.3 Glucose Level 85mg/dL (70-99) 95mg/dL (70-99) Calcium Level 9.4mg/dL (8.5-10.1) 9.3mg/dL (8.5-10.1) Laboratory Tests Test 11/28/16 04:30 Sodium Level 144mmol/L (136-145) Potassium Level 3.6mmol/L (3.5-5.1) Chloride Level 102mmol/L (98-107) Carbon Dioxide Level 44mmol/L (21-32) Anion Gap (6-14) Blood Urea Nitrogen 28mg/dL (8-26) Creatinine 1.0mg/dL (0.7-1.3) Estimated GFR (Cockcroft-Gault) 74.3 Glucose Level 95mg/dL (70-99) Calcium Level 9.3mg/dL (8.5-10.1) Medications Current Medications Ondansetron HCl (Zofran) 4 mg PRN Q6HRS PRN IV NAUSEA/VOMITING, 1ST CHOICE; Start 11/25/16 at 14:30 Prochlorperazine Edisylate (Compazine) 10 mg PRN Q6HRS PRN IV NAUSEA/VOMITING, 2ND CHOICE; Start 11/25/16 at 14:30 Prochlorperazine (Compazine) 25 mg PRN Q12HR PRN SD NAUSEA/VOMITING; Start at 14:30 Al Hydrox/Mg Hydrox/Simethicone (Mylanta Plus Xs) 30 ml PRN Q3HRS PRN PO HEARTBURN / GAS; Start 11/25/16 at 14:30 Calcium Carbonate/ Glycine (Tums) 500 mg PRN Q3HRS PRN PO UPSET STOMACH; Start 11/25/16 at 14:30 Zolpidem Tartrate (Ambien) 5 mg PRN QHS PRN PO INSOMNIA, MAY REPEAT IN 1HR; Start 11/25/16 at 14:30 Oxycodone HCl (Roxicodone) 5 mg PRN Q3HRS PRN PO BREAKTHROUGH PAIN; Start 11/25 at 14:30; Stop 11/25/16 at 16:44; Status DC Morphine Sulfate 2 mg PRN Q2HR PRN IV PAIN; Start 11/25/16 at 14:30 Docusate Sodium (Colace) 100 mg BID PO Last administered on 11/26/16 11:46; Start 11/25/16 at 21:00 Magnesium Hydroxide (Milk Of Magnesia) 2,400 mg PRN Q12HR PRN PO CONSTIPATION; Start 11/25/16 at 14:30 Lactulose 20 gm PRN Q12HR PRN PO CONSTIPATION; Start 11/25/16 at 14:30 Heparin Sodium (Porcine) 5,000 unit Q8HRS SQ ; Start 11/25/16 at 15:15; Stop at 15:42; Status DC Heparin Sodium (Porcine) 5,000 unit Q12HR SQ ; Start 11/25/16 at 21:00; Stop at 21:00; Status DC Enoxaparin Sodium (Lovenox 40mg Syringe) 40 mg Q24H SQ ; Start 11/25/16 at 14:30 ; Stop 11/25/16 at 15:42; Status DC Amiodarone HCl (Cordarone) 200 mg DAILY PO Last administered on 11/27/16 08:31 ; Start 11/25/16 at 15:00 Aspirin (Children'S Aspirin) 81 mg DAILY PO Last administered on 11/27/16 08: 31; Start 11/25/16 at 15:00 Folic Acid (Folic Acid) 1 mg DAILY PO Last administered on 11/27/16 08:30; Start 11/25/16 at 15:00 Furosemide (Lasix) 20 mg BID92 PO ; Start 11/25/16 at 15:00; Stop 11/25/16 at 16 :44; Status DC Lisinopril (Prinivil) 40 mg DAILY PO ; Start 11/25/16 at 15:00; Stop 11/25/16 at 16:44; Status DC Oxycodone HCl (Roxicodone) 30 mg QID PO ; Start 11/25/16 at 17:00; Stop at 17:00; Status DC Spironolactone (Aldactone) 25 mg DAILY PO ; Start 11/25/16 at 15:00; Stop at 16:44; Status DC Carvedilol (Coreg) 12.5 mg BIDWMEALS PO ; Start 11/25/16 at 17:00; Stop at 17:00; Status DC Atorvastatin Calcium (Lipitor) 5 mg QHS PO Last administered on 11/27/16 20:41 ; Start 11/25/16 at 21:00 Apixaban (Eliquis) 5 mg BID PO Last administered on 11/27/16 20:41; Start at 21:00 Bupropion HCl (Wellbutrin) 100 mg BID PO Last administered on 11/27/16 20:42; Start 11/25/16 at 21:00 Cefpodoxime Proxetil (Vantin) 200 mg BID PO Last administered on 11/27/16 20: 41; Start 11/25/16 at 21:00 Cetirizine HCl (Zyrtec) 10 mg DAILY PO Last administered on 11/27/16 08:31; Start 11/25/16 at 17:00 Ferrous Sulfate (Feosol) 325 mg DAILY PO Last administered on 11/27/16 08:31; Start 11/25/16 at 17:00 Lisinopril (Prinivil) 5 mg HS PO Last administered on 11/27/16 20:42; Start at 21:00 Metoprolol Succinate (Toprol Xl) 100 mg DAILY PO Last administered on 08:31; Start 11/25/16 at 17:00 Pantoprazole Sodium (Protonix) 40 mg DAILYAC PO Last administered on 11/27/16 08:30; Start 11/25/16 at 17:00 Ascorbic Acid (Vitamin C) 250 mg BID PO Last administered on 11/27/16 20:42; Start 11/25/16 at 21:00 Oxycodone HCl (Roxicodone) 10 mg PRN Q4HRS PRN PO MODERATE TO SEVERE PAIN Last administered on 11/27/16 16:53; Start 11/25/16 at 17:15 Oxycodone HCl (Roxicodone) 20 mg PRN Q4HRS PRN PO SEVERE PAIN Last administered on 11/28/16 05:00; Start 11/25/16 at 17:15 Regadenoson (Lexiscan) 0.4 mg 1X ONCE IV Last administered on 11/26/16 11:05 ; Start 11/26/16 at 10:00; Stop 11/26/16 at 10:01; Status DC Info (Anti-Coagulation Monitoring By Pharmacy) 1 each PRN DAILY PRN MC SEE COMMENTS Last administered on 11/28/16 09:59; Start 11/26/16 at 10:15 Furosemide (Lasix) 20 mg 1X ONCE IVP Last administered on 11/26/16 13:40; Start 11/26/16 at 13:15; Stop 11/26/16 at 13:25; Status DC Furosemide (Lasix) 40 mg 1X ONCE IVP Last administered on 11/26/16 18:09; Start 11/26/16 at 17:45; Stop 11/26/16 at 17:48; Status DC Furosemide (Lasix) 40 mg Q12HR IVP Last administered on 11/27/16 20:40; Start 11/26/16 at 21:00 Potassium Chloride (Klor-Con) 20 meq DAILYWBKFT PO Last administered on 08:30; Start 11/26/16 at 17:45 Albuterol/ Ipratropium (Duoneb) 3 ml RTQID NEB Last administered on 11/28/16 08:05; Start 11/27/16 at 20:00 Active Scripts Active Reported Amiodarone Hcl 200 Mg Tablet 1 Tab PO DAILY Oxycodone HCl 10 Mg/0.5 Ml Syringe 10 Mg PO PRN Q4HRS PRN Oxycodone HCl 10 Mg/0.5 Ml Syringe 20 Mg PO PRN Q4HRS PRN Bupropion Hcl 100 Mg Tablet 100 Mg PO BID Metoprolol Succinate 50 Mg Tab.er.24h 100 Mg PO DAILY Lisinopril 5 Mg Tablet 1 Tab PO HS Senna-Docusate Sodium Tablet (Sennosides/Docusate Sodium) 1 Each Tablet 1 Each PO PRN BID PRN Zyrtec (Cetirizine Hcl) 10 Mg Tablet 1 Tab PO DAILY Cefpodoxime Proxetil 200 Mg Tablet 1 Tab PO BID Benzonatate 100 Mg Capsule 1 Cap PO PRN TID PRN Ascorbic Acid 250 Mg Tablet 250 Mg PO BID Eliquis (Apixaban) 5 Mg Tablet 5 Mg PO BID Protonix (Pantoprazole Sodium) 40 Mg Tablet.dr 1 Tab PO DAILY Ferrous Sulfate 325 Mg Tablet 1 Tab PO DAILY Spironolactone 25 Mg Tablet 0.5 Tab PO DAILY [Duoneb] [Combivent] [Proventil] [Symbicort] Pravastatin Sodium 10 Mg Tablet 0.5 Tab PO HS Aspirin 81 Mg Tab.chew 1 Tab PO DAILY Vitals/I & O Vital Sign - Last 24 Hours 11/27/16 11/27/16 11/27/16 11/27/16 11:00 13:31 15:00 16:53 Temp 98.1 98.1 98.1 98.1 Pulse 60 66 Resp B/P 128/70 166/75 Pulse Ox 95 95 93 93 O2 Delivery Nasal Cannula Nasal Cannula Nasal Cannula Nasal Cannula O2 Flow Rate 3.0 3.0 3.0 3.0 11/27/16 11/27/16 11/27/16 11/27/16 17:50 19:38 19:44 20:00 Temp 97.5 97.5 Pulse 74 Resp 20 B/P 177/71 Pulse Ox 93 93 96 O2 Delivery Nasal Cannula Nasal Cannula Nasal Cannula Nasal Cannula O2 Flow Rate 3.0 3.0 3.0 3.0 11/27/16 11/27/16 11/27/16 11/28/16 20:40 20:42 23:26 00:32 Temp 97.6 97.6 Pulse 74 61 Resp 20 18 B/P 177/71 135/63 Pulse Ox 93 94 O2 Delivery Nasal Cannula Nasal Cannula Nasal Cannula O2 Flow Rate 3.0 3.0 3.0 11/28/16 11/28/16 11/28/16 11/28/16 03:17 05:00 06:00 07:48 Temp 97.8 98.2 97.8 98.2 Pulse 60 57 Resp 20 18 18 18 B/P 141/70 157/69 Pulse Ox 99 99 99 100 O2 Delivery Nasal Cannula Nasal Cannula Nasal Cannula Nasal Cannula O2 Flow Rate 3.0 3.0 3.0 11/28/16 08:08 Pulse Ox 94 O2 Delivery Nasal Cannula O2 Flow Rate 3.0 Intake and Output 11/27/16 11/27/16 11/28/16 15:00 23:00 07:00 Intake Total 300 ml 520 ml 500 ml Output Total 400 ml 1750 ml 1100 ml Balance -100 ml -1230 ml -600 ml KAREEN LEE MD Nov 28, 2016 10:14
[2016-11-28 11:06] VITALS: BP 145/65
[2016-11-28 14:25] VITALS: BP 118/64
[2016-11-28 19:45] VITALS: BP 125/68
[2016-11-28] MEDS: LISINOPRIL 5 MG TABLET. PO SCH (20:39)
[2016-11-28] MEDS: ATORVASTATIN CALCIUM 10 MG TABLET. PO SCH (20:40)
--- NOTE | 2016-11-28 21:32 | PDOC ---
PROGRESS NOTES Chief Complaint Chief Complaint cc: elevated troponin 1. Hypoxic respiratory failure POA sec to malfunctioning O2 tank 2. Troponin elevation x 3, known CAD indwelling PCI 4. CHF, 5. Chronic atrial fib 6. COPD Plan Diuresis iv lasix BID stress test fixed defect, awaiting cardiology recommendations. recent cath at [facility] monitor electrolytes Labs reviewed. sw to help disposition plan supportive care. dc planning home in am History of Present Illness History of Present Illness sob better no chest pain no fever no chills. seen this AM Vitals Vitals Vital Signs Date Time Temp Pulse Resp B/P Pulse Ox O2 Delivery O2 Flow Rate FiO2 11/28/16 20:42 20 100 Nasal Cannula 3.0 11/28/16 20:39 60 125/68 11/28/16 19:45 97.7 97.7 Physical Exam General: Alert, Cooperative, No acute distress Heart: Regular rate, Normal S1, Normal S2 Lungs: Other Abdomen: Normal bowel sounds, Soft Extremities: No clubbing, No cyanosis, Other (trace LE edma, improved since admission) Skin: No rashes, No breakdown, No significant lesion Labs LABS Laboratory Tests Test 11/28/16 04:30 Sodium Level 144mmol/L (136-145) Potassium Level 3.6mmol/L (3.5-5.1) Chloride Level 102mmol/L (98-107) Carbon Dioxide Level 44mmol/L (21-32) Anion Gap (6-14) Blood Urea Nitrogen 28mg/dL (8-26) Creatinine 1.0mg/dL (0.7-1.3) Estimated GFR (Cockcroft-Gault) 74.3 Glucose Level 95mg/dL (70-99) Calcium Level 9.3mg/dL (8.5-10.1) Assessment and Plan Assessmemt and Plan Problems Medical Problems: (1) COPD (chronic obstructive pulmonary disease) Status: Acute Problems: Comment Review of Relevant I have reviewed the following items meka (where applicable) has been applied. Labs Laboratory Tests Test 11/27/16 08:40 11/28/16 04:30 Sodium Level 145mmol/L (136-145) 144mmol/L (136-145) Potassium Level 3.8mmol/L (3.5-5.1) 3.6mmol/L (3.5-5.1) Chloride Level 103mmol/L (98-107) 102mmol/L (98-107) Carbon Dioxide Level 42mmol/L (21-32) 44mmol/L (21-32) Anion Gap 0 (6-14) (6-14) Blood Urea Nitrogen 30mg/dL (8-26) 28mg/dL (8-26) Creatinine 0.9mg/dL (0.7-1.3) 1.0mg/dL (0.7-1.3) Estimated GFR (Cockcroft-Gault) 83.9 74.3 Glucose Level 85mg/dL (70-99) 95mg/dL (70-99) Calcium Level 9.4mg/dL (8.5-10.1) 9.3mg/dL (8.5-10.1) Laboratory Tests Test 11/28/16 04:30 Sodium Level 144mmol/L (136-145) Potassium Level 3.6mmol/L (3.5-5.1) Chloride Level 102mmol/L (98-107) Carbon Dioxide Level 44mmol/L (21-32) Anion Gap (6-14) Blood Urea Nitrogen 28mg/dL (8-26) Creatinine 1.0mg/dL (0.7-1.3) Estimated GFR (Cockcroft-Gault) 74.3 Glucose Level 95mg/dL (70-99) Calcium Level 9.3mg/dL (8.5-10.1) Medications Current Medications Ondansetron HCl (Zofran) 4 mg PRN Q6HRS PRN IV NAUSEA/VOMITING, 1ST CHOICE; Start 11/25/16 at 14:30 Prochlorperazine Edisylate (Compazine) 10 mg PRN Q6HRS PRN IV NAUSEA/VOMITING, 2ND CHOICE; Start 11/25/16 at 14:30 Prochlorperazine (Compazine) 25 mg PRN Q12HR PRN RI NAUSEA/VOMITING; Start at 14:30 Al Hydrox/Mg Hydrox/Simethicone (Mylanta Plus Xs) 30 ml PRN Q3HRS PRN PO HEARTBURN / GAS; Start 11/25/16 at 14:30 Calcium Carbonate/ Glycine (Tums) 500 mg PRN Q3HRS PRN PO UPSET STOMACH Last administered on 2/23/17at 14:44; Start 11/25/16 at 14:30 Zolpidem Tartrate (Ambien) 5 mg PRN QHS PRN PO INSOMNIA, MAY REPEAT IN 1HR; Start 11/25/16 at 14:30 Oxycodone HCl (Roxicodone) 5 mg PRN Q3HRS PRN PO BREAKTHROUGH PAIN; Start 11/25 at 14:30; Stop 11/25/16 at 16:44; Status DC Morphine Sulfate 2 mg PRN Q2HR PRN IV PAIN; Start 11/25/16 at 14:30 Docusate Sodium (Colace) 100 mg BID PO Last administered on 11/26/16 11:46; Start 11/25/16 at 21:00 Magnesium Hydroxide (Milk Of Magnesia) 2,400 mg PRN Q12HR PRN PO CONSTIPATION; Start 11/25/16 at 14:30 Lactulose 20 gm PRN Q12HR PRN PO CONSTIPATION; Start 11/25/16 at 14:30 Heparin Sodium (Porcine) 5,000 unit Q8HRS SQ ; Start 11/25/16 at 15:15; Stop at 15:42; Status DC Heparin Sodium (Porcine) 5,000 unit Q12HR SQ ; Start 11/25/16 at 21:00; Stop at 21:00; Status DC Enoxaparin Sodium (Lovenox 40mg Syringe) 40 mg Q24H SQ ; Start 11/25/16 at 14:30 ; Stop 11/25/16 at 15:42; Status DC Amiodarone HCl (Cordarone) 200 mg DAILY PO Last administered on 11/28/16 10:04 ; Start 11/25/16 at 15:00 Aspirin (Children'S Aspirin) 81 mg DAILY PO Last administered on 11/28/16 10: 03; Start 11/25/16 at 15:00 Folic Acid (Folic Acid) 1 mg DAILY PO Last administered on 11/28/16 10:06; Start 11/25/16 at 15:00 Furosemide (Lasix) 20 mg BID92 PO ; Start 11/25/16 at 15:00; Stop 11/25/16 at 16 :44; Status DC Lisinopril (Prinivil) 40 mg DAILY PO ; Start 11/25/16 at 15:00; Stop 11/25/16 at 16:44; Status DC Oxycodone HCl (Roxicodone) 30 mg QID PO ; Start 11/25/16 at 17:00; Stop at 17:00; Status DC Spironolactone (Aldactone) 25 mg DAILY PO ; Start 11/25/16 at 15:00; Stop at 16:44; Status DC Carvedilol (Coreg) 12.5 mg BIDWMEALS PO ; Start 11/25/16 at 17:00; Stop at 17:00; Status DC Atorvastatin Calcium (Lipitor) 5 mg QHS PO Last administered on 11/28/16 20:40 ; Start 11/25/16 at 21:00 Apixaban (Eliquis) 5 mg BID PO Last administered on 11/28/16 20:40; Start at 21:00 Bupropion HCl (Wellbutrin) 100 mg BID PO Last administered on 11/28/16 20:39; Start 11/25/16 at 21:00 Cefpodoxime Proxetil (Vantin) 200 mg BID PO Last administered on 11/28/16 20: 39; Start 11/25/16 at 21:00 Cetirizine HCl (Zyrtec) 10 mg DAILY PO Last administered on 11/28/16 10:05; Start 11/25/16 at 17:00 Ferrous Sulfate (Feosol) 325 mg DAILY PO Last administered on 11/28/16 10:06; Start 11/25/16 at 17:00 Lisinopril (Prinivil) 5 mg HS PO Last administered on 11/28/16 20:39; Start at 21:00 Metoprolol Succinate (Toprol Xl) 100 mg DAILY PO Last administered on 10:06; Start 11/25/16 at 17:00 Pantoprazole Sodium (Protonix) 40 mg DAILYAC PO Last administered on 11/28/16 10:05; Start 11/25/16 at 17:00 Ascorbic Acid (Vitamin C) 250 mg BID PO Last administered on 11/28/16 20:41; Start 11/25/16 at 21:00 Oxycodone HCl (Roxicodone) 10 mg PRN Q4HRS PRN PO MODERATE TO SEVERE PAIN Last administered on 11/27/16 16:53; Start 11/25/16 at 17:15 Oxycodone HCl (Roxicodone) 20 mg PRN Q4HRS PRN PO SEVERE PAIN Last administered on 11/28/16 20:42; Start 11/25/16 at 17:15 Regadenoson (Lexiscan) 0.4 mg 1X ONCE IV Last administered on 11/26/16 11:05 ; Start 11/26/16 at 10:00; Stop 11/26/16 at 10:01; Status DC Info (Anti-Coagulation Monitoring By Pharmacy) 1 each PRN DAILY PRN MC SEE COMMENTS Last administered on 11/28/16 09:59; Start 11/26/16 at 10:15 Furosemide (Lasix) 20 mg 1X ONCE IVP Last administered on 11/26/16 13:40; Start 11/26/16 at 13:15; Stop 11/26/16 at 13:25; Status DC Furosemide (Lasix) 40 mg 1X ONCE IVP Last administered on 11/26/16 18:09; Start 11/26/16 at 17:45; Stop 11/26/16 at 17:48; Status DC Furosemide (Lasix) 40 mg Q12HR IVP Last administered on 11/28/16 20:38; Start 11/26/16 at 21:00 Potassium Chloride (Klor-Con) 20 meq DAILYWBKFT PO Last administered on 10:05; Start 11/26/16 at 17:45 Albuterol/ Ipratropium (Duoneb) 3 ml RTQID NEB Last administered on 11/28/16 19:24; Start 11/27/16 at 20:00 Active Scripts Active Reported Amiodarone Hcl 200 Mg Tablet 1 Tab PO DAILY Oxycodone HCl 10 Mg/0.5 Ml Syringe 10 Mg PO PRN Q4HRS PRN Oxycodone HCl 10 Mg/0.5 Ml Syringe 20 Mg PO PRN Q4HRS PRN Bupropion Hcl 100 Mg Tablet 100 Mg PO BID Metoprolol Succinate 50 Mg Tab.er.24h 100 Mg PO DAILY Lisinopril 5 Mg Tablet 1 Tab PO HS Senna-Docusate Sodium Tablet (Sennosides/Docusate Sodium) 1 Each Tablet 1 Each PO PRN BID PRN Zyrtec (Cetirizine Hcl) 10 Mg Tablet 1 Tab PO DAILY Cefpodoxime Proxetil 200 Mg Tablet 1 Tab PO BID Benzonatate 100 Mg Capsule 1 Cap PO PRN TID PRN Ascorbic Acid 250 Mg Tablet 250 Mg PO BID Eliquis (Apixaban) 5 Mg Tablet 5 Mg PO BID Protonix (Pantoprazole Sodium) 40 Mg Tablet.dr 1 Tab PO DAILY Ferrous Sulfate 325 Mg Tablet 1 Tab PO DAILY Spironolactone 25 Mg Tablet 0.5 Tab PO DAILY [Duoneb] [Combivent] [Proventil] [Symbicort] Pravastatin Sodium 10 Mg Tablet 0.5 Tab PO HS Aspirin 81 Mg Tab.chew 1 Tab PO DAILY Vitals/I & O Vital Sign - Last 24 Hours 11/27/16 11/28/16 11/28/16 11/28/16 23:26 00:32 03:17 05:00 Temp 97.6 97.8 97.6 97.8 Pulse 61 60 Resp 18 18 20 18 B/P 135/63 141/70 Pulse Ox 94 99 99 O2 Delivery Nasal Cannula Nasal Cannula Nasal Cannula Nasal Cannula O2 Flow Rate 3.0 3.0 3.0 3.0 11/28/16 11/28/16 11/28/16 11/28/16 06:00 07:48 08:00 08:08 Temp 98.2 98.2 Pulse 57 Resp 18 18 B/P 157/69 Pulse Ox 99 100 94 O2 Delivery Nasal Cannula Nasal Cannula Nasal Cannula O2 Flow Rate 3.0 3.0 11/28/16 11/28/16 11/28/16 11/28/16 10:04 10:06 10:08 11:06 Temp 97.6 97.6 Pulse 57 57 61 Resp 22 B/P 157/69 157/69 145/65 Pulse Ox 100 O2 Delivery Nasal Cannula Nasal Cannula O2 Flow Rate 2.0 11/28/16 11/28/16 11/28/16 11/28/16 11:44 14:25 14:37 15:50 Temp 98.4 98.4 Pulse 56 Resp 17 B/P 118/64 Pulse Ox 95 O2 Delivery Nasal Cannula Nasal Cannula Nasal Cannula Nasal Cannula O2 Flow Rate 3.0 3.0 3.0 11/28/16 11/28/16 11/28/16 11/28/16 16:00 19:24 19:45 20:39 Temp 97.7 97.7 Pulse 60 60 Resp 16 B/P 125/68 125/68 Pulse Ox 96 100 O2 Delivery Nasal Cannula Nasal Cannula Nasal Cannula O2 Flow Rate 3.0 3.0 3.0 11/28/16 20:42 Resp 20 Pulse Ox 100 O2 Delivery Nasal Cannula O2 Flow Rate 3.0 Intake and Output 11/27/16 11/27/16 11/28/16 15:00 23:00 07:00 Intake Total 300 ml 520 ml 500 ml Output Total 400 ml 1750 ml 2000 ml Balance -100 ml -1230 ml -1500 ml SELENE MARTÍNEZ MD Nov 28, 2016 21:32
[2016-11-28 23:00] VITALS: BP 150/67
[2016-11-29] MEDS: OXYCODONE IR 5 MG TABLET. PO PRN ×2 (01:22→05:50)
[2016-11-29 03:38] VITALS: BP 142/84
[2016-11-29] MEDS: IPRATRPIUM/ALBUTEROL 0.5/2.5MG 3 ML NEBU. NEB SCH (07:06)
[2016-11-29 07:30] VITALS: BP 134/74
[2016-11-29] MEDS: METOPROLOL SUCC 24HR ER 50 MG TAB.ER.24H. PO SCH (08:41)
[2016-11-29] MEDS: CEFPODOXIME PROXETIL 200 MG TABLET PO SCH (08:41)
[2016-11-29] MEDS: APIXABAN 5 MG TABLET. PO SCH (08:41)
[2016-11-29 08:42] VITALS: BP 142/84
[2016-11-29] MEDS: AMIODARONE HCL 200 MG TABLET PO SCH (08:42)
[2016-11-29] MEDS: PANTOPRAZOLE 40 MG TABLET. PO SCH (08:42)
[2016-11-29] MEDS: CETIRIZINE HCL 10 MG TABLET PO SCH (08:42)
[2016-11-29] MEDS: POTASSIUM CHLORIDE 20 MEQ TABLET.ER. PO SCH (08:42)
[2016-11-29] MEDS: FERROUS SULFATE 325 MG TABLET PO SCH (08:42)
[2016-11-29] MEDS: buPROPion 100 MG TABLET PO SCH (08:42)
[2016-11-29] MEDS: DOCUSATE SODIUM 100 MG CAPSULE PO SCH (08:42)
[2016-11-29] MEDS: FOLIC ACID 1 MG TABLET PO SCH (08:42)
[2016-11-29] MEDS: ASPIRIN 81 MG TAB.CHEW PO SCH (08:42)
[2016-11-29] MEDS: ASCORBIC ACID 500 MG TABLET PO SCH (08:43)
[2016-11-29] MEDS: FUROSEMIDE 40 MG/4 ML VIAL IVP SCH (08:48)
[2016-11-29] MEDS: ANTI-COAG MONITOR BY PHARMACY. MC PRN (09:27)
[2016-11-29] MEDS ORDERED: OXYC10TA PO (09:37)
--- NOTE | 2016-11-29 09:41 | PDOC ---
PROGRESS NOTES Subjective Subjective Pt feels well, ready to go home, refused lasix dose this morning. Denies any chest pain, palpitations or change in shortness of breath. Objective Objective Vital Signs Date Time Temp Pulse Resp B/P Pulse Ox O2 Delivery O2 Flow Rate FiO2 11/29/16 08:42 68 142/84 11/29/16 07:45 Nasal Cannula 2.5 11/29/16 07:30 98.7 20 99 98.7 Intake and Output 11/29/16 07:00 Intake Total 960 ml Output Total 2280 ml Balance -1320 ml Intake Oral 960 ml Output Urine Total 2280 ml Physical Exam Abdomen: Normal bowel sounds Heart: Regular rate, Normal S1, Normal S2, No murmurs Extremities: No clubbing, No cyanosis, Other (Trace LE edema essentially gone) General: Alert, Oriented X3, Cooperative, No acute distress HEENT: Atraumatic, PERRLA Lungs: Clear to auscultation, Normal air movement, Other (NC in place) Neck: Supple, No JVD Assessment Assessment 66 year old male with CHF, chronic afib with PCI in place, COPD on 2L NC at baseline transferred from [facility] for mildly elevated troponins with non specific ST changes on EKG after presenting with dyspnea. MPI was abnormal with no acute changes and patient had a recent heart cath without need for further intervention. Etiology of elevated troponins is likely hypoxic in nature. Patient received several days of IV lasix for peripheral edema which is much improved. Patient is back to cardiac baseline. Problems Medical Problems: (1) COPD (chronic obstructive pulmonary disease) Status: Acute Plan Plan of Care Patient is stable from a cardiac standpoint for discharge, please follow up as an outpatient in 2 weeks. Thank you for letting me participate in the care of this patient. Comment Review of Relevant I have reviewed the following items meka (where applicable) has been applied. Labs Laboratory Tests Test 11/28/16 04:30 Sodium Level 144mmol/L (136-145) Potassium Level 3.6mmol/L (3.5-5.1) Chloride Level 102mmol/L (98-107) Carbon Dioxide Level 44mmol/L (21-32) Anion Gap (6-14) Blood Urea Nitrogen 28mg/dL (8-26) Creatinine 1.0mg/dL (0.7-1.3) Estimated GFR (Cockcroft-Gault) 74.3 Glucose Level 95mg/dL (70-99) Calcium Level 9.3mg/dL (8.5-10.1) Medications Current Medications Ondansetron HCl (Zofran) 4 mg PRN Q6HRS PRN IV NAUSEA/VOMITING, 1ST CHOICE; Start 11/25/16 at 14:30 Prochlorperazine Edisylate (Compazine) 10 mg PRN Q6HRS PRN IV NAUSEA/VOMITING, 2ND CHOICE; Start 11/25/16 at 14:30 Prochlorperazine (Compazine) 25 mg PRN Q12HR PRN [place] NAUSEA/VOMITING; Start at 14:30 Al Hydrox/Mg Hydrox/Simethicone (Mylanta Plus Xs) 30 ml PRN Q3HRS PRN PO HEARTBURN / GAS; Start 11/25/16 at 14:30 Calcium Carbonate/ Glycine (Tums) 500 mg PRN Q3HRS PRN PO UPSET STOMACH Last administered on 11/28/16 14:44; Start 11/25/16 at 14:30 Zolpidem Tartrate (Ambien) 5 mg PRN QHS PRN PO INSOMNIA, MAY REPEAT IN 1HR; Start 11/25/16 at 14:30 Oxycodone HCl (Roxicodone) 5 mg PRN Q3HRS PRN PO BREAKTHROUGH PAIN; Start 11/25 at 14:30; Stop 11/25/16 at 16:44; Status DC Morphine Sulfate 2 mg PRN Q2HR PRN IV PAIN; Start 11/25/16 at 14:30 Docusate Sodium (Colace) 100 mg BID PO Last administered on 11/29/16 08:42; Start 11/25/16 at 21:00 Magnesium Hydroxide (Milk Of Magnesia) 2,400 mg PRN Q12HR PRN PO CONSTIPATION; Start 11/25/16 at 14:30 Lactulose 20 gm PRN Q12HR PRN PO CONSTIPATION; Start 11/25/16 at 14:30 Heparin Sodium (Porcine) 5,000 unit Q8HRS SQ ; Start 11/25/16 at 15:15; Stop at 15:42; Status DC Heparin Sodium (Porcine) 5,000 unit Q12HR SQ ; Start 11/25/16 at 21:00; Stop at 21:00; Status DC Enoxaparin Sodium (Lovenox 40mg Syringe) 40 mg Q24H SQ ; Start 11/25/16 at 14:30 ; Stop 11/25/16 at 15:42; Status DC Amiodarone HCl (Cordarone) 200 mg DAILY PO Last administered on 11/29/16 08:42 ; Start 11/25/16 at 15:00 Aspirin (Children'S Aspirin) 81 mg DAILY PO Last administered on 11/29/16 08: 42; Start 11/25/16 at 15:00 Folic Acid (Folic Acid) 1 mg DAILY PO Last administered on 11/29/16 08:42; Start 11/25/16 at 15:00 Furosemide (Lasix) 20 mg BID92 PO ; Start 11/25/16 at 15:00; Stop 11/25/16 at 16 :44; Status DC Lisinopril (Prinivil) 40 mg DAILY PO ; Start 11/25/16 at 15:00; Stop 11/25/16 at 16:44; Status DC Oxycodone HCl (Roxicodone) 30 mg QID PO ; Start 11/25/16 at 17:00; Stop at 17:00; Status DC Spironolactone (Aldactone) 25 mg DAILY PO ; Start 11/25/16 at 15:00; Stop at 16:44; Status DC Carvedilol (Coreg) 12.5 mg BIDWMEALS PO ; Start 11/25/16 at 17:00; Stop at 17:00; Status DC Atorvastatin Calcium (Lipitor) 5 mg QHS PO Last administered on 11/28/16 20:40 ; Start 11/25/16 at 21:00 Apixaban (Eliquis) 5 mg BID PO Last administered on 11/29/16 08:41; Start at 21:00 Bupropion HCl (Wellbutrin) 100 mg BID PO Last administered on 11/29/16 08:42; Start 11/25/16 at 21:00 Cefpodoxime Proxetil (Vantin) 200 mg BID PO Last administered on 11/29/16 08: 41; Start 11/25/16 at 21:00 Cetirizine HCl (Zyrtec) 10 mg DAILY PO Last administered on 11/29/16 08:42; Start 11/25/16 at 17:00 Ferrous Sulfate (Feosol) 325 mg DAILY PO Last administered on 11/29/16 08:42; Start 11/25/16 at 17:00 Lisinopril (Prinivil) 5 mg HS PO Last administered on 11/28/16 20:39; Start at 21:00 Metoprolol Succinate (Toprol Xl) 100 mg DAILY PO Last administered on 08:41; Start 11/25/16 at 17:00 Pantoprazole Sodium (Protonix) 40 mg DAILYAC PO Last administered on 11/29/16 08:42; Start 11/25/16 at 17:00 Ascorbic Acid (Vitamin C) 250 mg BID PO Last administered on 11/29/16 08:43; Start 11/25/16 at 21:00 Oxycodone HCl (Roxicodone) 10 mg PRN Q4HRS PRN PO MODERATE TO SEVERE PAIN Last administered on 11/29/16 05:50; Start 11/25/16 at 17:15 Oxycodone HCl (Roxicodone) 20 mg PRN Q4HRS PRN PO SEVERE PAIN Last administered on 11/29/16 01:22; Start 11/25/16 at 17:15 Regadenoson (Lexiscan) 0.4 mg 1X ONCE IV Last administered on 11/26/16 11:05 ; Start 11/26/16 at 10:00; Stop 11/26/16 at 10:01; Status DC Info (Anti-Coagulation Monitoring By Pharmacy) 1 each PRN DAILY PRN MC SEE COMMENTS Last administered on 11/29/16 09:27; Start 11/26/16 at 10:15 Furosemide (Lasix) 20 mg 1X ONCE IVP Last administered on 11/26/16 13:40; Start 11/26/16 at 13:15; Stop 11/26/16 at 13:25; Status DC Furosemide (Lasix) 40 mg 1X ONCE IVP Last administered on 11/26/16 18:09; Start 11/26/16 at 17:45; Stop 11/26/16 at 17:48; Status DC Furosemide (Lasix) 40 mg Q12HR IVP Last administered on 11/28/16 20:38; Start 11/26/16 at 21:00 Potassium Chloride (Klor-Con) 20 meq DAILYWBKFT PO Last administered on 08:42; Start 11/26/16 at 17:45 Albuterol/ Ipratropium (Duoneb) 3 ml RTQID NEB Last administered on 11/29/16 07:06; Start 11/27/16 at 20:00 Active Scripts Active Reported Amiodarone Hcl 200 Mg Tablet 1 Tab PO DAILY Oxycodone HCl 10 Mg/0.5 Ml Syringe 10 Mg PO PRN Q4HRS PRN Oxycodone HCl 10 Mg/0.5 Ml Syringe 20 Mg PO PRN Q4HRS PRN Bupropion Hcl 100 Mg Tablet 100 Mg PO BID Metoprolol Succinate 50 Mg Tab.er.24h 100 Mg PO DAILY Lisinopril 5 Mg Tablet 1 Tab PO HS Senna-Docusate Sodium Tablet (Sennosides/Docusate Sodium) 1 Each Tablet 1 Each PO PRN BID PRN Zyrtec (Cetirizine Hcl) 10 Mg Tablet 1 Tab PO DAILY Cefpodoxime Proxetil 200 Mg Tablet 1 Tab PO BID Benzonatate 100 Mg Capsule 1 Cap PO PRN TID PRN Ascorbic Acid 250 Mg Tablet 250 Mg PO BID Eliquis (Apixaban) 5 Mg Tablet 5 Mg PO BID Protonix (Pantoprazole Sodium) 40 Mg Tablet.dr 1 Tab PO DAILY Ferrous Sulfate 325 Mg Tablet 1 Tab PO DAILY Spironolactone 25 Mg Tablet 0.5 Tab PO DAILY [Duoneb] [Combivent] [Proventil] [Symbicort] Pravastatin Sodium 10 Mg Tablet 0.5 Tab PO HS Aspirin 81 Mg Tab.chew 1 Tab PO DAILY Vitals/I & O Vital Sign - Last 24 Hours 11/28/16 11/28/16 11/28/16 11/28/16 10:04 10:06 10:08 11:06 Temp 97.6 97.6 Pulse 57 57 61 Resp 22 B/P 157/69 157/69 145/65 Pulse Ox 100 O2 Delivery Nasal Cannula Nasal Cannula O2 Flow Rate 2.0 11/28/16 11/28/16 11/28/16 11/28/16 11:44 14:25 14:37 15:50 Temp 98.4 98.4 Pulse 56 Resp 17 B/P 118/64 Pulse Ox 95 O2 Delivery Nasal Cannula Nasal Cannula Nasal Cannula Nasal Cannula O2 Flow Rate 3.0 3.0 3.0 11/28/16 11/28/16 11/28/16 11/28/16 19:24 19:45 19:50 20:39 Temp 97.7 97.7 Pulse 60 60 Resp 16 B/P 125/68 125/68 Pulse Ox 96 100 O2 Delivery Nasal Cannula Nasal Cannula Nasal Cannula O2 Flow Rate 3.0 3.0 3.0 11/28/16 11/28/16 11/29/16 11/29/16 20:42 23:00 01:22 02:22 Temp 98.7 98.7 Pulse 65 Resp 20 18 22 20 B/P 150/67 Pulse Ox 100 97 97 97 O2 Delivery Nasal Cannula Nasal Cannula Nasal Cannula Nasal Cannula O2 Flow Rate 3.0 3.0 3.0 3.0 11/29/16 11/29/16 11/29/16 11/29/16 03:38 05:50 06:50 07:06 Temp 97.9 97.9 Pulse 68 Resp 22 20 20 B/P 142/84 Pulse Ox 96 96 96 100 O2 Delivery Nasal Cannula Nasal Cannula Nasal Cannula Nasal Cannula O2 Flow Rate 3.0 3.0 3.0 2.5 11/29/16 11/29/16 11/29/16 11/29/16 07:30 07:45 08:41 08:42 Temp 98.7 98.7 Pulse 65 68 68 Resp 20 B/P 134/74 142/84 142/84 Pulse Ox 99 O2 Delivery Nasal Cannula Nasal Cannula O2 Flow Rate 3.0 2.5 Intake and Output 11/28/16 11/28/16 11/29/16 15:00 23:00 07:00 Intake Total 480 ml 480 ml Output Total 730 ml 400 ml 1150 ml Balance -730 ml 80 ml -670 ml KAREEN LEE MD Nov 29, 2016 09:41
--- NOTE | 2016-11-30 01:59 | DS ---
DATE OF DISCHARGE: 11/29/2016 DISCHARGE DIAGNOSES: 1. Hypoxic respiratory failure secondary to congestive heart failure exacerbation. 2. Mild elevation of troponins, likely due to congestive heart failure exacerbation. 3. Chronic atrial fibrillation. 4. COPD with chronic respiratory failure. PROCEDURES: The patient had MPI stress test which appears to be abnormal fixed defect, which appears to be chronic. BRIEF HOSPITAL COURSE: A 66-year-old male patient admitted to the hospital on 11/25/2016 for mild elevation of troponins. The patient had been transferred from [facility]. He was admitted for acute on chronic respiratory failure and shortness of breath. The patient has mild elevation of troponins and he was evaluated by Dr. Santiago. He had a recent cardiac catheterization at [facility] and he ____ underwent any other procedures here; however, he was started on IV Lasix. The patient's symptoms improved with IV Lasix and rate controlling medications. His medications have been changed to oral and has been in stable condition to go home and follow up with cardiology in 1-2 weeks. DISCHARGE EXAMINATION: GENERAL: Alert, oriented x 3. HEART: S1, S2 present. LUNGS: Clear to auscultation. ABDOMEN: Soft, nontender, no organomegaly. EXTREMITIES: No edema. DISCHARGE DISPOSITION: Home. DISCHARGE CONDITION: Stable. DISCHARGE MEDICATIONS: Reviewed and reconciled. FOLLOWUP: With Dr. Santiago in 1-2 weeks. Total time spent for discharge is 35 minutes for patient education, counseling, and coordination of care. SELENE MARTÍNEZ MD DR: JENNY/gilberto JOB#: [id number] / [id number]
== END 2016-11-29 11:59 | disposition home or self-care (01) | DRG 291 ==
LOC: 2 SOUTH 13:57
PROVIDERS: ADMIT Internal Medicine; ATTEND Internal Medicine
DX: I11.0 Hypertensive heart disease with heart failure (principal); J96.21 Acute and chronic respiratory failure with hypoxia; E44.1 Mild protein-calorie malnutrition; J44.1 Chronic obstructive pulmonary disease with (acute) exacerbation; I50.33 Acute on chronic diastolic (congestive) heart failure; G89.29 Other chronic pain; E78.5 Hyperlipidemia, unspecified; I25.10 Atherosclerotic heart disease of native coronary artery without angina pectoris; I48.2 Chronic atrial fibrillation; Z86.73 Personal history of transient ischemic attack (TIA), and cerebral infarction without residual deficits; Z98.61 Coronary angioplasty status; Z99.81 Dependence on supplemental oxygen; Z88.5 Allergy status to narcotic agent; Z91.030 Bee allergy status; Z87.891 Personal history of nicotine dependence; Z91.013 Allergy to seafood; Z91.018 Allergy to other foods; Z68.21 Body mass index [BMI] 21.0-21.9, adult; Z79.82 Long term (current) use of aspirin
CPT/HCPCS: 36415; 78452; 80048; 85007; 85027; 85610; 87641; 93017; 94250; 94640; 94660; 96374; 96375; 96376; A9500; J1940; J2785; J7620

== ENCOUNTER 2016-12-04 14:09 | Inpatient (IN) | payer MEDICARE, OTHER ==
[~2016-12-04] VITALS: Ht 175.3 cm; Wt 61.2 kg
[~2016-12-04 14:09] MED LIST changes: +APIX5TAB PO; +ASCO250T3 PO; +BENZ100C2 PO; +BUPR100T11 PO; +CEFP200T PO; +CETI10TA22 PO; +ERGO500012 PO; +FERR-26 PO; +FLUT15.88 NS; +FURO-68 PO; +LISI-338 PO; +METO50TA10 PO; +OXYC10SY PO; +OXYC10TA PO; +PANT40TA3 PO; +POLY17PO5 PO; +POTA10TA17 PO; +SENN1TAB7 PO
[2016-12-04 17:00] VITALS: BP 105/49
[2016-12-04] MEDS ORDERED: POTA20TA82 PO (17:31)
[2016-12-04] MEDS ORDERED: PRED20TA PO (17:31)
[2016-12-04] MEDS ORDERED: FURO20TA3 PO (17:31)
[2016-12-04] MEDS ORDERED: ALBU2.5V5 NEB (17:31)
[2016-12-04] MEDS ORDERED: GUAI600T28 PO (17:31)
[2016-12-04] MEDS ORDERED: OXYCODONE IR 5 MG TABLET. PO PRN (18:00)
[2016-12-04] MEDS: METOPROLOL SUCC 24HR ER 50 MG TAB.ER.24H. PO SCH (18:00)
[2016-12-04] MEDS: FUROSEMIDE 20 MG TABLET PO SCH (18:00)
[2016-12-04] MEDS: POTASSIUM CITRATE 10 MEQ TABLET.ER PO SCH (18:00)
[2016-12-04] MEDS: LISINOPRIL 5 MG TABLET. PO SCH (18:00)
[2016-12-04 18:15] LABS: BASO % 0 % (0-3); EOS % 0 % (0-3); HEMATOCRIT 28.6 % (39.0-53.0); HEMOGLOBIN 9.2 g/dL (13.0-17.5); LYMPH # 0.5 x10^3/uL (1.0-4.8); LYMPH % 5 % (24-48); MEAN CORPUSCULAR HEMOGLOBIN 29 pg (25-35); MEAN CORPUSCULAR HGB CONC 32 g/dL (31-37); MEAN CORPUSCULAR VOLUME 91 fL (79-100); MONO % 7 % (0-9); NEUT % 87 % (31-73); PLATELET COUNT 190 x10^3/uL (140-400); RED BLOOD COUNT 3.15 x10^6/uL (4.30-5.70); RED CELL DISTRIBUTION WIDTH 16.9 % (11.5-14.5); WHITE BLOOD COUNT 9.1 x10^3/uL (4.0-11.0)
[2016-12-04 18:31] LABS: ALBUMIN 2.8 g/dL (3.4-5.0); ALBUMIN/GLOBULIN RATIO 0.8 (1.0-1.7); CALCIUM 9.2 mg/dL (8.5-10.1); CREATININE 1.3 mg/dL (0.7-1.3); GFR 54.9; POTASSIUM 4.8 mmol/L (3.5-5.1); TOTAL BILIRUBIN 0.5 mg/dL (0.2-1.0); TOTAL PROTEIN 6.4 g/dL (6.4-8.2)
[2016-12-04 18:35] LABS: ANISOCYTOSIS SLIGHT; HYPOCHROMIA SLIGHT; OVALOCYTES OCC; PLT ESTIMATE ADEQUATE (ADEQUATE)
[2016-12-04] MEDS: PREDNISONE 20 MG TABLET PO SCH (18:41)
[2016-12-04] MEDS: FERROUS SULFATE 325 MG TABLET PO SCH (18:41)
[2016-12-04] MEDS: PANTOPRAZOLE 40 MG TABLET. PO SCH (18:41)
[2016-12-04] MEDS: OXYCODONE IR 5 MG TABLET. PO PRN ×2 (18:42→23:05)
--- NOTE | 2016-12-04 19:01 | PDOC2 ---
NEUROLOGY CONSULT Date of Admission Date of Admission DATE: 12/04/16 TIME: 18:49 Reason for Consult Reason for Consult: IMPRESSION: Left UE pain. 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 COPD Anemia CAD, s/p CABG CHF AFib HTN HLD Malnutrition RECOMMENDATIONS/PLAN: Lab: see orders. Lyrica 50 mg bid. EMG/NCS can be done as out-patient. OT/PT MRI in consideration. HISTORY OF THE PRESENT ILLNESS: 66-y-old male patient with chronic pain in his left medial aspect of UE for several weeks. He stated he was evaluated at but no answer to his complaints of pain in his left UE. he described that his pain likes electric type sometimes. He stated he took Neurontin for 2 years for his UE pain but did not help his symptoms. PAST MEDICAL HISTORY: Please see above. PAST SURGERY HISTORY: S/P CABG Tonsillectomy ALLERGY: Reviewed MEDICATIONS: Refer to [facility] HISTORY: Non contributory. SOCIAL HISTORY: Denies current smoking, drinking, and illicit drug use. He was a former smoker. REVIEW OF SYSTEMS: Constitutional: Malnutrition. Head: No traumatic brain or head injury. Skin: No edema, or rash. Ear: No infection, tinnitus. Eyes: No vision loss or color blindness. Nose: No bleeding or purulent discharges. Hearing: Hearing decrease. Neck: No injury. Cardiac: AK, CAD, s/p CABG, AFib, HTN, HLD. Pulmonary: COPD. GI: No GI ulcer, GI bleeding. Urinary/genital: UTI. Endocrinologic: No cousin face, craniofacial dysmorphism, polydactyly, goiter. Skeletomuscular: No muscular wasting. Neurological: see HP. Psychiatric: Denies drug use/abuse. Otherwise, not [id number] review of systems. PHYSICAL EXAMINATION: General appearance is in chronic distress. HEENT: Normocephalic and nontraumatic. Eyes, nose, ears, and throat are unremarkable. Neck is supple. No lymphadenopathy. No crepitus. Cardiovascular: S1, S2, regular rate and rhythm. Pulmonary: Clear to auscultation bilaterally. Abdomen: Bowel sounds are positive. Extremities: No rash, lesions, or edema. No restriction of range of motion NEUROLOGICAL EXAMINATION: Alert Oriented to time, place and person. PERRL. EOMI. CN: no focal findings. Muscle tone: within normal. Muscle strength: 4+ DTR: 2- Plantar reflex: Flexor response bilaterally Gait: not examined in bed. Sensory exam: pain in left should joint and left medial aspect of UE.. No cerebellar signs elicited. F-T-N test fine in right side. Current Medications Current Medications Current Medications Albuterol Sulfate (Ventolin Neb Soln) 2.5 mg PRN Q2HR PRN NEB SHORTNESS OF BREATH; Start 12/04/16 at 17:30 Cetirizine HCl (Zyrtec) 10 mg DAILY PO ; Start 12/04/16 at 20:00 Ferrous Sulfate (Feosol) 325 mg BIDWMEALS PO Last administered on 12/04/16 18: 41; Start 12/04/16 at 18:00 Furosemide (Lasix) 20 mg DAILY PO ; Start 12/04/16 at 18:00 Guaifenesin (Mucinex) 600 mg BID PO ; Start 12/04/16 at 21:00 Lisinopril (Prinivil) 5 mg DAILY PO ; Start 12/04/16 at 18:00 Metoprolol Succinate (Toprol Xl) 50 mg DAILY PO ; Start 12/04/16 at 18:00 Pantoprazole Sodium (Protonix) 40 mg BIDAC PO Last administered on 12/04/16 18: 41; Start 12/04/16 at 18:00 Potassium Citrate (Urocit-K) 20 meq DAILY PO ; Start 12/04/16 at 18:00 Prednisone (Prednisone) 20 mg BIDWMEALS PO Last administered on 12/04/16 18:41 ; Start 12/04/16 at 18:00 Ascorbic Acid (Vitamin C) 500 mg DAILY PO ; Start 12/05/16 at 09:00 Oxycodone HCl (Roxicodone) 10 mg PRN Q6HRS PRN PO PAIN SEVERE; Start 12/04/16 at 18:00; Stop 12/04/16 at 18:00; Status DC Potassium Chloride (Klor-Con) 20 meq TIDWMEALS PO ; Start 12/05/16 at 08:00 Atorvastatin Calcium (Lipitor) 5 mg QHS PO ; Start 12/04/16 at 21:00 Oxycodone HCl (Roxicodone) 10 mg PRN Q4HRS PRN PO PAIN SEVERE Last administered on 3/1/17at 18:42; Start 12/04/16 at 18:01 Active Scripts Active Potassium Citrate 10 Meq Tablet.er 20 Meq PO DAILY Reported Prednisone 20 Mg Tablet 1 Tab PO BID Potassium Chloride 20 Meq Tablet.er 20 Meq PO TID Guaifenesin 600 Mg Tablet.er 600 Mg PO BID Furosemide 20 Mg Tablet 1 Tab PO DAILY Albuterol Sulfate Neb Soln (Albuterol Sulfate) 2.5 Mg/3 Ml Vial.neb 2.5 Mg NEB PRN Q2HR PRN Oxycodone Hcl 10 Mg Tablet 10 Mg PO PRN Q4HRS PRN Amiodarone Hcl 200 Mg Tablet 1 Tab PO DAILY Bupropion Hcl 100 Mg Tablet 100 Mg PO BID Metoprolol Succinate 50 Mg Tab.er.24h 50 Mg PO DAILY Lisinopril 5 Mg Tablet 1 Tab PO DAILY Senna-Docusate Sodium Tablet (Sennosides/Docusate Sodium) 1 Each Tablet 1 Each PO PRN BID PRN Zyrtec (Cetirizine Hcl) 10 Mg Tablet 1 Tab PO DAILY Cefpodoxime Proxetil 200 Mg Tablet 1 Tab PO BID Benzonatate 100 Mg Capsule 1 Cap PO PRN TID PRN Ascorbic Acid 250 Mg Tablet 250 Mg PO BID Eliquis (Apixaban) 5 Mg Tablet 5 Mg PO BID Protonix (Pantoprazole Sodium) 40 Mg Tablet.dr 1 Tab PO BID Ferrous Sulfate 325 Mg Tablet 1 Tab PO BID Spironolactone 25 Mg Tablet 0.5 Tab PO DAILY [Duoneb] [Combivent] [Proventil] [Symbicort] Pravastatin Sodium 10 Mg Tablet 0.5 Tab PO HS Aspirin 81 Mg Tab.chew 1 Tab PO DAILY Allergies Allergies: Coded Allergies: peanut (Verified Allergy, Severe, 11/28/16) venom-honey bee (Verified Allergy, Severe, 11/28/16) Fish Containing Products (Verified Allergy, Intermediate, 11/28/16) bee pollen (Verified Allergy, Intermediate, 11/28/16) propoxyphene (Verified Allergy, Intermediate, 11/28/16) tramadol (Verified Allergy, Intermediate, 11/27/16) TOLERATES OXYCODONE AND MORPHINE Per patient's records at [facility] in [place] I [facility] *CONTACT* (Verified Allergy, Unknown, 11/26/16) mrsa Vitals VITALS Vital Signs Date Time Temp Pulse Resp B/P Pulse Ox O2 Delivery O2 Flow Rate FiO2 12/04/16 18:42 Nasal Cannula 2.0 Labs Labs Laboratory Tests Test 12/04/16 18:00 White Blood Count 9.1x10^3/uL (4.0-11.0) Red Blood Count 3.15x10^6/uL (4.30-5.70) Hemoglobin 9.2g/dL (13.0-17.5) Hematocrit 28.6% (39.0-53.0) Mean Corpuscular Volume 91fL (79-100) Mean Corpuscular Hemoglobin 29pg (25-35) Mean Corpuscular Hemoglobin Concent 32g/dL (31-37) Red Cell Distribution Width 16.9% (11.5-14.5) Platelet Count 190x10^3/uL (140-400) Neutrophils (%) (Auto) 87% (31-73) Lymphocytes (%) (Auto) 5% (24-48) Monocytes (%) (Auto) 7% (0-9) Eosinophils (%) (Auto) 0% (0-3) Basophils (%) (Auto) 0% (0-3) Neutrophils # (Auto) 7.9x10^3uL (1.8-7.7) Lymphocytes # (Auto) 0.5x10^3/uL (1.0-4.8) Monocytes # (Auto) 0.7x10^3/uL (0.0-1.1) Eosinophils # (Auto) 0.0x10^3/uL (0.0-0.7) Basophils # (Auto) 0.0x10^3/uL (0.0-0.2) Segmented Neutrophils % 88% (35-66) Lymphocytes % 7% (24-48) Monocytes % 5% (0-10) Platelet Estimate Adequate (ADEQUATE) Hypochromasia Slight Anisocytosis Slight Ovalocytes Occ Sodium Level 140mmol/L (136-145) Potassium Level 4.8mmol/L (3.5-5.1) Chloride Level 103mmol/L (98-107) Carbon Dioxide Level 31mmol/L (21-32) Anion Gap 6 (6-14) Blood Urea Nitrogen 33mg/dL (8-26) Creatinine 1.3mg/dL (0.7-1.3) Estimated GFR (Cockcroft-Gault) 54.9 BUN/Creatinine Ratio 25 (6-20) Glucose Level 209mg/dL (70-99) Calcium Level 9.2mg/dL (8.5-10.1) Total Bilirubin 0.5mg/dL (0.2-1.0) Aspartate Amino Transf (AST/SGOT) 9U/L (15-37) Alanine Aminotransferase (ALT/SGPT) 12U/L (16-63) Alkaline Phosphatase 91U/L (46-116) Total Protein 6.4g/dL (6.4-8.2) Albumin 2.8g/dL (3.4-5.0) Albumin/Globulin Ratio 0.8 (1.0-1.7) Laboratory Tests Test 12/04/16 18:00 White Blood Count 9.1x10^3/uL (4.0-11.0) Red Blood Count 3.15x10^6/uL (4.30-5.70) Hemoglobin 9.2g/dL (13.0-17.5) Hematocrit 28.6% (39.0-53.0) Mean Corpuscular Volume 91fL (79-100) Mean Corpuscular Hemoglobin 29pg (25-35) Mean Corpuscular Hemoglobin Concent 32g/dL (31-37) Red Cell Distribution Width 16.9% (11.5-14.5) Platelet Count 190x10^3/uL (140-400) Neutrophils (%) (Auto) 87% (31-73) Lymphocytes (%) (Auto) 5% (24-48) Monocytes (%) (Auto) 7% (0-9) Eosinophils (%) (Auto) 0% (0-3) Basophils (%) (Auto) 0% (0-3) Neutrophils # (Auto) 7.9x10^3uL (1.8-7.7) Lymphocytes # (Auto) 0.5x10^3/uL (1.0-4.8) Monocytes # (Auto) 0.7x10^3/uL (0.0-1.1) Eosinophils # (Auto) 0.0x10^3/uL (0.0-0.7) Basophils # (Auto) 0.0x10^3/uL (0.0-0.2) Segmented Neutrophils % 88% (35-66) Lymphocytes % 7% (24-48) Monocytes % 5% (0-10) Platelet Estimate Adequate (ADEQUATE) Hypochromasia Slight Anisocytosis Slight Ovalocytes Occ Sodium Level 140mmol/L (136-145) Potassium Level 4.8mmol/L (3.5-5.1) Chloride Level 103mmol/L (98-107) Carbon Dioxide Level 31mmol/L (21-32) Anion Gap 6 (6-14) Blood Urea Nitrogen 33mg/dL (8-26) Creatinine 1.3mg/dL (0.7-1.3) Estimated GFR (Cockcroft-Gault) 54.9 BUN/Creatinine Ratio 25 (6-20) Glucose Level 209mg/dL (70-99) Calcium Level 9.2mg/dL (8.5-10.1) Total Bilirubin 0.5mg/dL (0.2-1.0) Aspartate Amino Transf (AST/SGOT) 9U/L (15-37) Alanine Aminotransferase (ALT/SGPT) 12U/L (16-63) Alkaline Phosphatase 91U/L (46-116) Total Protein 6.4g/dL (6.4-8.2) Albumin 2.8g/dL (3.4-5.0) Albumin/Globulin Ratio 0.8 (1.0-1.7) KATE TERRAZAS MD Dec 04, 2016 19:01
[2016-12-04 19:15] VITALS: BP 115/66
[2016-12-04] MEDS: ALBUTEROL SULFATE 2.5 MG/3 ML NEBU. NEB PRN (20:32)
[2016-12-04] MEDS: ATORVASTATIN CALCIUM 10 MG TABLET. PO SCH (21:03)
[2016-12-04] MEDS: CETIRIZINE HCL 10 MG TABLET PO SCH (21:04)
[2016-12-04] MEDS: PREGABALIN 50 MG CAPSULE PO SCH (21:04)
[2016-12-04] MEDS: GUAIFENESIN ER 600 MG TABLET.ER PO SCH (21:04)
[2016-12-04] MEDS: OXYCODONE ER 10 MG TAB.ER.12H. PO SCH (22:00)
[2016-12-04 23:11] VITALS: BP 137/59
[2016-12-04 23:36] LABS: BARBITURATES NEG (NEG); BENZODIAZEPINES NEG (NEG); CANNABINOIDS NEG (NEG); COCAINE NEG (NEG); METHADONE NEG (NEG); OPIATES POS (NEG); PHENCYCLIDINE NEG (NEG)
[2016-12-04 23:37] LABS: ETHANOL, URINE NEG (NEG)
[2016-12-05 03:29] VITALS: BP 115/63
[2016-12-05] MEDS: OXYCODONE IR 5 MG TABLET. PO PRN ×5 (03:44→23:46)
[2016-12-05] MEDS: PANTOPRAZOLE 40 MG TABLET. PO SCH ×2 (03:44→17:29)
[2016-12-05 07:00] VITALS: BP 128/63
[2016-12-05] MEDS: ASCORBIC ACID 500 MG TABLET PO SCH (08:48)
[2016-12-05] MEDS: POTASSIUM CHLORIDE 20 MEQ TABLET.ER. PO SCH ×3 (08:48→17:28)
[2016-12-05] MEDS: POTASSIUM CITRATE 10 MEQ TABLET.ER PO SCH (08:48)
[2016-12-05] MEDS: PREGABALIN 50 MG CAPSULE PO SCH ×2 (08:49→21:20)
[2016-12-05] MEDS: METOPROLOL SUCC 24HR ER 50 MG TAB.ER.24H. PO SCH (08:49)
[2016-12-05] MEDS: GUAIFENESIN ER 600 MG TABLET.ER PO SCH ×2 (08:49→21:20)
[2016-12-05] MEDS: FERROUS SULFATE 325 MG TABLET PO SCH ×2 (08:49→17:28)
[2016-12-05] MEDS: PREDNISONE 20 MG TABLET PO SCH ×2 (08:49→17:29)
[2016-12-05] MEDS: CETIRIZINE HCL 10 MG TABLET PO SCH (08:49)
[2016-12-05] MEDS: FUROSEMIDE 20 MG TABLET PO SCH (08:49)
[2016-12-05] MEDS: LISINOPRIL 5 MG TABLET. PO SCH (08:49)
[2016-12-05] MEDS: OXYCODONE ER 10 MG TAB.ER.12H. PO SCH ×2 (09:00→21:24)
[2016-12-05] MEDS ORDERED: OXYCODONE ER 10 MG TAB.ER.12H. PO SCH (09:00)
[2016-12-05] MEDS: ALBUTEROL SULFATE 2.5 MG/3 ML NEBU. NEB PRN ×2 (10:31→16:27)
[2016-12-05] MEDS ORDERED: LORAZEPAM 2 MG/ML VIAL IV ONE (10:45)
[2016-12-05 11:00] VITALS: BP 138/65
[2016-12-05] MEDS ORDERED: GADOBUTROL 7.5 MMOL/7.5 ML VIAL IV ONE (11:45)
--- NOTE | 2016-12-05 12:22 | RAD ---
PROCEDURE MRI lumbar spine without and with contrast. HISTORY Low back pain with bilateral leg radiculopathy right greater than left TECHNIQUE Multiplanar, multi sequential pre and post contrast MR imaging was performed of the lumbar spine. Contrast: 7 cc Gadavist COMPARISON None FINDINGS Lumbar vertebral body AP alignment is adequate. There is mild superior endplate concavity of L4 and L1 not associated with significant edema in a pattern to suggest acute compression injury. There is moderate levoscoliosis centered about L1-2. There is fairly advanced degenerative disc disease at L5-S1, also eccentric to the left at L4-5 and on the right at L2-3, to a lesser degree at L1-2 and L3-4. There is multilevel variable degenerative endplate change greatest at L2-3. There is mild L4-5, L5-S1, T12-L1 cough and posterior L2-3 endplate edema likely reactive/degenerative in etiology. Conus terminates at T12-L1. There is no nodular enhancement of the conus or cauda equina, no significant enhancement in the intervertebral disc spaces. There is abdominal aortic aneurysm, maximal transverse dimension on the order of 5.3 centimeters. There is also dilatation and artifact in the region of the left iliac artery poorly evaluated on this exam. There are T2 hyperintense foci of the visualized kidneys most likely due to cysts, not fully evaluated. T12-L1: This level was not included on the axial images. There is shallow posterior bulge/protrusion. There is prominence of posterior epidural fat. There is mild narrowing of the spinal canal. There is likely mild narrowing of the right neural foramen. L1-2: There is negligible protrusion in the left lateral recess. There is mild buckling of the ligamentum flavum. Neural foramina are adequate. There is mild narrowing of the far lateral recesses bilaterally. L2-L3: There is minimal disc osteophyte complex and bulge. There is mild narrowing of the right neural foramen, left neural foramen adequate. There is mild buckling of the ligamentum flavum and facet degenerative change greater on the right. There is mild narrowing of the far lateral recesses greater on the right. L3-4: There is mild buckling of the ligamentum flavum and facet degenerative change greater on the right. There is minimal disc osteophyte complex and protrusion eccentric into the inferior right neural foramina and proximal right extraforaminal region. There is moderate narrowing greater distally of the right neural foramen, contact of the exiting right L3 nerve root. Left neural foramen is overall adequate. There is mild narrowing of the far lateral recesses bilaterally. L4-5: There is mild facet hypertrophic change greater on the right. There is mild buckling of the ligamentum flavum on the right. There is minimal disc osteophyte complex and bulge. Spinal canal is overall adequate. Right neural foramen is adequate. There is moderate narrowing greater distally of the left neural foramen, contact of the exiting left L4 nerve root in the proximal extraforaminal region by disc osteophyte complex. L5-S1: There is moderate left facet degenerative change. There is minimal protrusion greatest centrally and in the right lateral recess. There is no significant impingement descending S1 nerve roots, spinal canal overall adequate. There is mild right and moderate left neural foramina compromise. IMPRESSION 1. There is multilevel variable degenerative disc disease throughout lumbar spine. There is multilevel spondylosis. 2. There is multilevel mild lateral recess stenosis as stated. 3. There is neural foramina compromise as stated greatest on the left at L4-5 and L5-S1 and on the right at L3-4. 4. There is moderate lumbar levoscoliosis. 5. There is abdominal aortic aneurysm, aneurysm sac on the order of 5.3 centimeters axial plane. Electronically signed by: Ryan Samuel MD (Dec 05, 2016 12:21:05)
[2016-12-05 15:00] VITALS: BP 136/61
[2016-12-05 15:10] LABS: FREE T4 2.97 ng/dL (0.76-1.46)
--- NOTE | 2016-12-05 17:16 | PDOC ---
SUBJECTIVE Subjective 66M who reports few week history of pain and tingling down the ulnar aspect of the left forearm to the 4th and 5th fingers. Denies pain/numbness more proximal to this distribution. Denies discrete focal weakness in this region. Somewhat poor historian. Consult for evaluation of possible ulnar nerve entrapment. Will need EMG/NCS which may be completed on outpatient basis. He may follow-up pending results of this. For now, may benefit from therapy with regard to this issue. D/w patient. All questions answered. All in agreement. OBJECTIVE Vital Signs Vital Signs Date Time Temp Pulse Resp B/P Pulse Ox O2 Delivery O2 Flow Rate FiO2 12/05/16 16:27 100 Nasal Cannula 2.0 12/05/16 16:22 Nasal Cannula 2.0 12/05/16 15:07 Nasal Cannula 3.0 12/05/16 15:00 98.1 71 20 136/61 100 Nasal Cannula 2.0 98.1 12/05/16 11:00 97.4 91 20 138/65 84 Nasal Cannula 2.0 97.4 12/05/16 10:34 98 Nasal Cannula 2.0 12/05/16 08:50 BiPAP/CPAP 2.0 12/05/16 08:49 70 128/63 12/05/16 08:49 70 128/63 12/05/16 08:00 Nasal Cannula 2.0 12/05/16 07:00 97.3 70 18 128/63 99 Nasal Cannula 2.0 97.3 12/05/16 04:44 20 94 12/05/16 03:44 20 94 Nasal Cannula 2.0 12/05/16 03:29 98.5 69 22 115/63 94 Room Air 98.5 12/04/16 23:11 97.8 84 22 137/59 92 Nasal Cannula 2.0 97.8 12/04/16 23:05 20 99 Nasal Cannula 2.0 12/04/16 22:00 pt states he is allergic 12/04/16 20:00 Nasal Cannula 2.0 12/04/16 19:15 98.9 76 18 115/66 99 Nasal Cannula 2.0 98.9 12/04/16 18:42 Nasal Cannula 2.0 I & O Intake and Output 12/05/16 07:00 Intake Total 840 ml Output Total 670 ml Balance 170 ml Intake Oral 840 ml Output Urine Total 670 ml COMMENT Lab Laboratory Tests Test 12/04/16 18:00 12/04/16 23:20 12/05/16 03:05 White Blood Count 9.1x10^3/uL (4.0-11.0) Red Blood Count 3.15x10^6/uL (4.30-5.70) Hemoglobin 9.2g/dL (13.0-17.5) Hematocrit 28.6% (39.0-53.0) Mean Corpuscular Volume 91fL (79-100) Mean Corpuscular Hemoglobin 29pg (25-35) Mean Corpuscular Hemoglobin Concent 32g/dL (31-37) Red Cell Distribution Width 16.9% (11.5-14.5) Platelet Count 190x10^3/uL (140-400) Neutrophils (%) (Auto) 87% (31-73) Lymphocytes (%) (Auto) 5% (24-48) Monocytes (%) (Auto) 7% (0-9) Eosinophils (%) (Auto) 0% (0-3) Basophils (%) (Auto) 0% (0-3) Neutrophils # (Auto) 7.9x10^3uL (1.8-7.7) Lymphocytes # (Auto) 0.5x10^3/uL (1.0-4.8) Monocytes # (Auto) 0.7x10^3/uL (0.0-1.1) Eosinophils # (Auto) 0.0x10^3/uL (0.0-0.7) Basophils # (Auto) 0.0x10^3/uL (0.0-0.2) Segmented Neutrophils % 88% (35-66) Lymphocytes % 7% (24-48) Monocytes % 5% (0-10) Platelet Estimate Adequate (ADEQUATE) Hypochromasia Slight Anisocytosis Slight Ovalocytes Occ Nasal Screen MRSA (PCR) Positive (Negative) Sodium Level 140mmol/L (136-145) Potassium Level 4.8mmol/L (3.5-5.1) Chloride Level 103mmol/L (98-107) Carbon Dioxide Level 31mmol/L (21-32) Anion Gap 6 (6-14) Blood Urea Nitrogen 33mg/dL (8-26) Creatinine 1.3mg/dL (0.7-1.3) Estimated GFR (Cockcroft-Gault) 54.9 BUN/Creatinine Ratio 25 (6-20) Glucose Level 209mg/dL (70-99) Calcium Level 9.2mg/dL (8.5-10.1) Total Bilirubin 0.5mg/dL (0.2-1.0) Aspartate Amino Transf (AST/SGOT) 9U/L (15-37) Alanine Aminotransferase (ALT/SGPT) 12U/L (16-63) Alkaline Phosphatase 91U/L (46-116) Creatine Kinase 14U/L (39-308) Total Protein 6.4g/dL (6.4-8.2) Albumin 2.8g/dL (3.4-5.0) Albumin/Globulin Ratio 0.8 (1.0-1.7) Thyroid Stimulating Hormone (TSH) 0.027uIU/mL (0.358-3.74) Urine Opiates Screen Pos (NEG) Urine Methadone Screen Neg (NEG) Urine Barbiturates Neg (NEG) Urine Phencyclidine Screen Neg (NEG) Urine Amphetamine/Methamphetamine Neg (NEG) Urine Benzodiazepines Screen Neg (NEG) Urine Cocaine Screen Neg (NEG) Urine Cannabinoids Screen Neg (NEG) Urine Ethyl Alcohol Neg (NEG) Erythrocyte Sedimentation Rate 80 (0-15) Free Thyroxine 2.97ng/dL (0.76-1.46) Free Triiodothyronine (T3) pg/mL 3.82pg/mL (2.18-3.98) HIV-1 Antibody Non reactive (Non Reactive) JAYY BASS MD Dec 05, 2016 17:16
--- NOTE | 2016-12-05 17:29 | PDOC ---
PROGRESS NOTES Assessment Assessment Left UE pain. 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 COPD Anemia CAD, s/p CABG CHF AFib HTN HLD Malnutrition RECOMMENDATIONS/PLAN: Continue Lyrica, increase to 100 mg bid. EMG/NCS can be done as out-patient. OT/PT HISTORY OF THE PRESENT ILLNESS: 66-y-old male patient with chronic pain in his left medial aspect of UE for several weeks. He stated he was evaluated at but no answer to his complaints of pain in his left UE. he described that his pain likes electric type sometimes. He stated he took Neurontin for 2 years for his UE pain but did not help his symptoms. PAST MEDICAL HISTORY: Please see above. PAST SURGERY HISTORY: S/P CABG Tonsillectomy ALLERGY: Reviewed MEDICATIONS: Refer to [facility] FAMILY HISTORY: Non contributory. SOCIAL HISTORY: Denies current smoking, drinking, and illicit drug use. He was a former smoker. REVIEW OF SYSTEMS: Constitutional: Malnutrition. Head: No traumatic brain or head injury. Skin: No edema, or rash. Ear: No infection, tinnitus. Eyes: No vision loss or color blindness. Nose: No bleeding or purulent discharges. Hearing: Hearing decrease. Neck: No injury. Cardiac: SC, CAD, s/p CABG, AFib, HTN, HLD. Pulmonary: COPD. GI: No GI ulcer, GI bleeding. Urinary/genital: UTI. Endocrinologic: No cousin face, craniofacial dysmorphism, polydactyly, goiter. Skeletomuscular: No muscular wasting. Neurological: see HP. Psychiatric: Denies drug use/abuse. Otherwise, not -ussrz review of systems. PHYSICAL EXAMINATION: General appearance is in chronic distress. HEENT: Normocephalic and nontraumatic. Eyes, nose, ears, and throat are unremarkable. Neck is supple. No lymphadenopathy. No crepitus. Cardiovascular: S1, S2, regular rate and rhythm. Pulmonary: Clear to auscultation bilaterally. Abdomen: Bowel sounds are positive. Extremities: No rash, lesions, or edema. No restriction of range of motion NEUROLOGICAL EXAMINATION: Alert Oriented to time, place and person. PERRL. EOMI. CN: no focal findings. Muscle tone: within normal. Muscle strength: 4+ DTR: 2- Plantar reflex: Flexor response bilaterally Gait: not examined in bed. Sensory exam: pain in left should joint and left medial aspect of UE. No cerebellar signs elicited. F-T-N test fine in right side. Objective Objective Vital Signs Date Time Temp Pulse Resp B/P Pulse Ox O2 Delivery O2 Flow Rate FiO2 12/05/16 16:27 100 Nasal Cannula 2.0 12/05/16 15:00 98.1 71 20 136/61 98.1 Intake and Output 12/05/16 07:00 Intake Total 840 ml Output Total 670 ml Balance 170 ml Intake Oral 840 ml Output Urine Total 670 ml Vitals Signs Vitals VS - Last 72 Hours, by Label Date Time Temp Pulse Resp B/P Pulse Ox O2 Delivery O2 Flow Rate FiO2 12/05/16 16:27 100 Nasal Cannula 2.0 12/05/16 16:22 Nasal Cannula 2.0 12/05/16 15:07 Nasal Cannula 3.0 12/05/16 15:00 98.1 71 20 136/61 100 Nasal Cannula 2.0 98.1 12/05/16 11:00 97.4 91 20 138/65 84 Nasal Cannula 2.0 97.4 12/05/16 10:34 98 Nasal Cannula 2.0 12/05/16 08:50 BiPAP/CPAP 2.0 12/05/16 08:49 70 128/63 12/05/16 08:49 70 128/63 12/05/16 08:00 Nasal Cannula 2.0 12/05/16 07:00 97.3 70 18 128/63 99 Nasal Cannula 2.0 97.3 12/05/16 04:44 20 94 12/05/16 03:44 20 94 Nasal Cannula 2.0 12/05/16 03:29 98.5 69 22 115/63 94 Room Air 98.5 12/04/16 23:11 97.8 84 22 137/59 92 Nasal Cannula 2.0 97.8 12/04/16 23:05 20 99 Nasal Cannula 2.0 12/04/16 22:00 pt states he is allergic 12/04/16 20:00 Nasal Cannula 2.0 12/04/16 19:15 98.9 76 18 115/66 99 Nasal Cannula 2.0 98.9 12/04/16 18:42 Nasal Cannula 2.0 12/04/16 17:00 96.6 77 18 105/49 98 Nasal Cannula 2.0 96.6 12/04/16 17:00 96.6 77 18 105/49 98 Nasal Cannula 2.0 96.6 12/04/16 17:00 Nasal Cannula 2.0 Laboratory Laboratory Laboratory Tests Test 12/04/16 18:00 12/04/16 23:20 12/05/16 03:05 White Blood Count 9.1x10^3/uL (4.0-11.0) Red Blood Count 3.15x10^6/uL (4.30-5.70) Hemoglobin 9.2g/dL (13.0-17.5) Hematocrit 28.6% (39.0-53.0) Mean Corpuscular Volume 91fL (79-100) Mean Corpuscular Hemoglobin 29pg (25-35) Mean Corpuscular Hemoglobin Concent 32g/dL (31-37) Red Cell Distribution Width 16.9% (11.5-14.5) Platelet Count 190x10^3/uL (140-400) Neutrophils (%) (Auto) 87% (31-73) Lymphocytes (%) (Auto) 5% (24-48) Monocytes (%) (Auto) 7% (0-9) Eosinophils (%) (Auto) 0% (0-3) Basophils (%) (Auto) 0% (0-3) Neutrophils # (Auto) 7.9x10^3uL (1.8-7.7) Lymphocytes # (Auto) 0.5x10^3/uL (1.0-4.8) Monocytes # (Auto) 0.7x10^3/uL (0.0-1.1) Eosinophils # (Auto) 0.0x10^3/uL (0.0-0.7) Basophils # (Auto) 0.0x10^3/uL (0.0-0.2) Segmented Neutrophils % 88% (35-66) Lymphocytes % 7% (24-48) Monocytes % 5% (0-10) Platelet Estimate Adequate (ADEQUATE) Hypochromasia Slight Anisocytosis Slight Ovalocytes Occ Nasal Screen MRSA (PCR) Positive (Negative) Sodium Level 140mmol/L (136-145) Potassium Level 4.8mmol/L (3.5-5.1) Chloride Level 103mmol/L (98-107) Carbon Dioxide Level 31mmol/L (21-32) Anion Gap 6 (6-14) Blood Urea Nitrogen 33mg/dL (8-26) Creatinine 1.3mg/dL (0.7-1.3) Estimated GFR (Cockcroft-Gault) 54.9 BUN/Creatinine Ratio 25 (6-20) Glucose Level 209mg/dL (70-99) Calcium Level 9.2mg/dL (8.5-10.1) Total Bilirubin 0.5mg/dL (0.2-1.0) Aspartate Amino Transf (AST/SGOT) 9U/L (15-37) Alanine Aminotransferase (ALT/SGPT) 12U/L (16-63) Alkaline Phosphatase 91U/L (46-116) Creatine Kinase 14U/L (39-308) Total Protein 6.4g/dL (6.4-8.2) Albumin 2.8g/dL (3.4-5.0) Albumin/Globulin Ratio 0.8 (1.0-1.7) Thyroid Stimulating Hormone (TSH) 0.027uIU/mL (0.358-3.74) Urine Opiates Screen Pos (NEG) Urine Methadone Screen Neg (NEG) Urine Barbiturates Neg (NEG) Urine Phencyclidine Screen Neg (NEG) Urine Amphetamine/Methamphetamine Neg (NEG) Urine Benzodiazepines Screen Neg (NEG) Urine Cocaine Screen Neg (NEG) Urine Cannabinoids Screen Neg (NEG) Urine Ethyl Alcohol Neg (NEG) Erythrocyte Sedimentation Rate 80 (0-15) Free Thyroxine 2.97ng/dL (0.76-1.46) Free Triiodothyronine (T3) pg/mL 3.82pg/mL (2.18-3.98) HIV-1 Antibody Non reactive (Non Reactive) Medication Medications Current Medications Albuterol Sulfate (Ventolin Neb Soln) 2.5 mg PRN Q2HR PRN NEB SHORTNESS OF BREATH Last administered on 12/05/16 16:27; Start 12/04/16 at 17:30 Ascorbic Acid (Vitamin C) 500 mg DAILY PO Last administered on 12/05/16 08:48; Start 12/05/16 at 09:00 Atorvastatin Calcium (Lipitor) 5 mg QHS PO Last administered on 12/04/16 21:03 ; Start 12/04/16 at 21:00 Cetirizine HCl (Zyrtec) 10 mg DAILY PO Last administered on 12/05/16 08:49; Start 12/04/16 at 20:00 Ferrous Sulfate (Feosol) 325 mg BIDWMEALS PO Last administered on 12/05/16 08: 49; Start 12/04/16 at 18:00 Furosemide (Lasix) 20 mg DAILY PO Last administered on 12/05/16 08:49; Start at 18:00 Gadobutrol (Gadavist) 7 mmol 1X ONCE IV Last administered on 12/05/16 11:52; Start 12/05/16 at 11:45; Stop 12/05/16 at 11:46; Status DC Guaifenesin (Mucinex) 600 mg BID PO Last administered on 12/05/16 08:49; Start 12/04/16 at 21:00 Lisinopril (Prinivil) 5 mg DAILY PO Last administered on 12/05/16 08:49; Start 12/04/16 at 18:00 Lorazepam (Ativan) 1 mg 1X ONCE IV Last administered on 12/05/16 10:58; Start 12/05/16 at 10:45; Stop 12/05/16 at 10:46; Status DC Metoprolol Succinate (Toprol Xl) 50 mg DAILY PO Last administered on 12/05/16 08:49; Start 12/04/16 at 18:00 Oxycodone HCl (Oxycontin) 10 mg Q12HR PO ; Start 12/04/16 at 22:00 Oxycodone HCl (Oxycontin) 10 mg Q12HR PO ; Start 12/05/16 at 09:00; Stop 12/05/16 at 09:00; Status DC Oxycodone HCl (Roxicodone) 10 mg PRN Q4HRS PRN PO PAIN SEVERE Last administered on 12/05/16 15:07; Start 12/04/16 at 18:01 Oxycodone HCl (Roxicodone) 10 mg PRN Q6HRS PRN PO PAIN SEVERE; Start 12/04/16 at 18:00; Stop 12/04/16 at 18:00; Status DC Pantoprazole Sodium (Protonix) 40 mg BIDAC PO Last administered on 12/05/16 03: 44; Start 12/04/16 at 18:00 Potassium Chloride (Klor-Con) 20 meq TIDWMEALS PO Last administered on 08:48; Start 12/05/16 at 08:00 Potassium Citrate (Urocit-K) 20 meq DAILY PO Last administered on 12/05/16 08: 48; Start 12/04/16 at 18:00 Prednisone (Prednisone) 20 mg BIDWMEALS PO Last administered on 12/05/16 08:49 ; Start 12/04/16 at 18:00 Pregabalin (Lyrica) 50 mg BID PO Last administered on 12/05/16 08:49; Start 12/04/16 at 21:00 Comment Review of Relevant I have reviewed the following items meka (where applicable) has been applied. KATE TERRAZAS MD Dec 05, 2016 17:29
[2016-12-05 19:00] VITALS: BP 112/54
[2016-12-05] MEDS: ATORVASTATIN CALCIUM 10 MG TABLET. PO SCH (21:21)
[2016-12-05 23:00] VITALS: BP 121/74
--- NOTE | 2016-12-06 00:29 | HP ---
ADMIT DATE: HISTORY OF PRESENT ILLNESS: The patient was discharged yesterday from [facility] and was transferred to this facility as he continued to have severe back pain and also pain is tingling in his left upper extremity. He has had an x-ray of his lumbar spine, which showed that he has compression fracture of L1 and therefore, a decision was made to transfer him to this facility to do an MRI of his lumbar spine and to consult Dr. Hi to see whether he is a candidate for vertebroplasty. He has also had what seems to be either left ulnar entrapment versus cervical radiculopathy, for which I would consult the neurologist and pain management as he is on large amount of pain medication. He is on 10 mg of OxyContin twice a day as well as oxycodone 10 mg every 4 hours. PAST MEDICAL HISTORY: Significant for hypertension, hyperlipidemia. He has right middle cerebral artery territory infarct with left-sided hemiplegia, COPD, benign prostatic hypertrophy, GI bleed, and osteoarthritis. PAST SURGICAL HISTORY: Significant for coronary artery bypass graft surgery, right total hip arthroplasty, hernia repair and cataract surgery. ALLERGIES: HE IS ALLERGIC TO KETOROLAC, PSEUDOEPHEDRINE, VIOXX WELL FISH, PEANUT AND BEE STING. FAMILY HISTORY: He has 3 brothers and 3 sisters, all are healthy. His mother at the age of 90. His father at age of 65, because of myocardial infarction. SOCIAL HISTORY: , has 1 daughter. He smoked for almost 45 years, smokes tobacco about a pack a day, quit few months ago. He used to be also a heavy drinker, quit about 20 years ago. He used to also smoke marijuana from 1969 to 1981. 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 REVIEW OF SYSTEMS: The patient denied any blurring of vision, cataract, glaucoma or macular degeneration. Denied any earache, tinnitus, or sensorineural deafness. Denied any nosebleeds, stuffy nose, or postnasal drip. Denied any sore throat, sore tongue, toothache, hoarseness of voice, or difficulty swallowing. Denied any nausea, vomiting, diarrhea or constipation. Denied any hematemesis, melena, or hematochezia. Denied any dysuria, frequency or hematuria. Denied any shortness of breath. He was admitted with chest pain and was extensively investigated at [facility] with no evidence of any myocardial infarction, in fact he has cardiac catheterization done recently at [facility]. Did not require any revascularization. PHYSICAL EXAMINATION: GENERAL: On examined him this morning, he looked well and was clearly, in no apparent distress. He was slightly pale, but not jaundiced or cyanosis. No lymphadenopathy, no thyromegaly, no jugular venous distention, no limb edema. VITAL SIGNS: His heart rate was 91, blood pressure was 138/65, temperature was 97.4, respiratory rate was ____ and oxygen saturation was 94% on 2 liters of oxygen. HEAD, EYES, EARS, NOSE AND THROAT: Showed normocephalic, atraumatic. NECK: Supple. HEART: Showed normal first and second heart sounds with no gallop, rub or murmur. CHEST: Clear to auscultation. No crepitation or rhonchi. ABDOMEN: Distended, soft, nontender. No guarding or rigidity. No organomegaly. Hernial orifices intact. Bowel sounds normal. NEUROLOGIC: He was awake, alert, responding appropriately. Cranial nerves intact. EXTREMITIES: He moves extremities without difficulty. He ambulates with a walker. LABORATORY DATA: His lab work this morning showed a white cell count of 9100, hemoglobin 9.2, hematocrit 28.6, MCV 91, and platelet count of 190,000 with normal manual differential. His serum sodium 140, potassium 4.8, chloride 103, bicarbonate 31, anion gap of 6, BUN 33, creatinine 1.3, estimated GFR was 55 mL per minute. His glucose was 209. Calcium was 9.2. Total bilirubin, AST, ALT, alkaline phosphatase were normal. His CK was 14. Total protein was 6.4, albumin was 2.8. TSH was 0.027. His toxicology screen was positive only for opiates, negative for any other medication. His nasal screen for MRSA by PCR was positive. ASSESSMENT AND PLAN: 1. In summary, this is a 66-year-old male patient, who was transferred from [facility] where he was initially admitted with chest pain, atypical features. His troponin level was slightly elevated; however, the EKG showed no changes and he has had a recent cardiac catheterization at [facility] without intervention. 2. [id number] systolic congestive heart failure, mild and improved. His diuretics were switched to be given orally. 3. Hypertension, well controlled. 4. Paroxysmal atrial fibrillation, currently in sinus rhythm. He is on Xarelto for stroke prophylaxis. 5. Hyperlipidemia, on statin. 6. Chronic obstructive pulmonary disease, on nebulizer albuterol and Atrovent as well as steroids. 7. He has abnormal abdominal aortic aneurysm that would be evaluated by the vascular surgeon as an outpatient and also he has compression fracture of L1 with severe back pain for which I have arranged for him to have an MRI and to consult Dr. Hi to see whether he is suitable candidate for vertebroplasty. I would also consult the neurosurgical team, otherwise unable to distinguish whether this is either left ulnar nerve entrapment and/or some form of cervical radiculopathy. LISSET NEWBERRY MD DR: JESSE/gilberto JOB#: [id number] / [id number]
[2016-12-06 03:00] VITALS: BP 119/63
[2016-12-06] MEDS: OXYCODONE IR 5 MG TABLET. PO PRN ×5 (05:01→21:12)
[2016-12-06 07:44] VITALS: BP 125/65
[2016-12-06] MEDS: FUROSEMIDE 20 MG TABLET PO SCH (08:18)
[2016-12-06] MEDS: GUAIFENESIN ER 600 MG TABLET.ER PO SCH ×2 (08:18→21:11)
[2016-12-06] MEDS: POTASSIUM CHLORIDE 20 MEQ TABLET.ER. PO SCH ×3 (08:18→17:08)
[2016-12-06] MEDS: PANTOPRAZOLE 40 MG TABLET. PO SCH ×2 (08:18→17:09)
[2016-12-06] MEDS: OXYCODONE ER 10 MG TAB.ER.12H. PO SCH ×2 (08:18→21:12)
[2016-12-06] MEDS: PREGABALIN 50 MG CAPSULE PO SCH ×2 (08:18→21:11)
[2016-12-06] MEDS: FERROUS SULFATE 325 MG TABLET PO SCH ×2 (08:19→17:09)
[2016-12-06] MEDS: POTASSIUM CITRATE 10 MEQ TABLET.ER PO SCH (08:19)
[2016-12-06] MEDS: ASCORBIC ACID 500 MG TABLET PO SCH (08:19)
[2016-12-06] MEDS: PREDNISONE 20 MG TABLET PO SCH ×2 (08:19→17:09)
[2016-12-06] MEDS: CETIRIZINE HCL 10 MG TABLET PO SCH (08:19)
[2016-12-06] MEDS: LISINOPRIL 5 MG TABLET. PO SCH (08:20)
[2016-12-06] MEDS: METOPROLOL SUCC 24HR ER 50 MG TAB.ER.24H. PO SCH (08:20)
[2016-12-06] MEDS ORDERED: LORAZEPAM 2 MG/ML VIAL IV ONE (09:45)
[2016-12-06 10:41] VITALS: BP 139/91
--- NOTE | 2016-12-06 10:51 | RAD ---
PROCEDURE MRI cervical spine without contrast. HISTORY Left upper extremity pain, neck pain, bilateral leg weakness TECHNIQUE Sagittal and axial T2, sagittal T1, sagittal STIR images were acquired of the cervical spine. Contrast: COMPARISON None FINDINGS There is motion degradation for all image sequences, limits accurate evaluation of the neural foramina. Cervical cord is not expanded. Accurate evaluation for cord signal abnormality is very limited due to motion, cannot exclude some increased T2 signal of the cord such as at C3-4 C4-5 at which there spinal stenosis. There is no significant abnormality of the cervical medullary junction. Cervical vertebral body stature is adequate. There is negligible anterior spondylolisthesis at C7-T1. There is advanced degenerative disc disease C3-4, C4-5, C5-C6, C6-7, to a somewhat lesser degree at C7-T1. There is C5-C6 endplate edema. C2-3: There is a posterior central protrusion and buckling of the ligamentum flavum which contributes to mild narrowing of the central canal to 8 millimeters. Neural foramina are adequate. C3-C4: There is disc osteophyte complex and bulge and buckling of the ligamentum flavum, likely narrowing of the central canal to 5-6 millimeters. There is right facet degenerative change. There is likely uncovertebral degenerative change bilaterally greater on the right. There is likely moderate to severe narrowing of the right neural foramen. C4-C5: There is bilateral facet hypertrophic change. There is buckling of the ligamentum flavum. There is disc osteophyte complex and bulge/protrusion. Central canal is likely narrowed to 5-6 millimeters. There is uncovertebral degenerative change greater on the left, likely severe narrowing of the left neural foramen and probable mild to moderate narrowing on the right. C5-C6: There is disc osteophyte complex and protrusion eccentric to the right lateral recess. Central canal is likely minimally narrowed to 9-10 millimeters, greater degree of moderate right lateral recess stenosis. There is right uncovertebral degenerative change. There is likely severe narrowing of the right neural foramen, left neural foramen probably adequate. C6-7: There is disc osteophyte complex and likely protrusion more eccentric to the right lateral recess. Central canal is likely minimally narrowed to 9-10 millimeters with a somewhat greater degree of right lateral recess stenosis. There is right uncovertebral degenerative change. There is likely fairly severe narrowing of the right neural foramen, likely mild to moderate narrowing on the left. C7-T1: Spinal canal is adequate. There is likely mild neural foramina compromise bilaterally, likely component of uncovertebral degenerative change although possible shallow protrusion on the right anteriorly. IMPRESSION 1. There is motion degradation variably for all image sequences. 2. There is spinal stenosis on the order of 5-6 millimeters C3-4 and C4-5, minimally at C5-C6 and C6-7 with right greater degree of right lateral recess stenosis at these levels. There is also mild spinal stenosis C2-3. Cord signal abnormality at C3-4 and C4-5 due to cord edema or myelomalacia cannot be excluded on this exam. 3. There is suspected multilevel cervical neural foramina compromise as stated although poorly characterized due to motion, narrowing likely greatest on the right at C3-C4, C5-C6, C6-C7 and on the left at C4-C5. 4. There is multilevel advanced degenerative disc disease of cervical spine greatest C3-4 to C6-7, multilevel spondylosis. C5-C6 endplate edema is likely reactive/degenerative in etiology. Electronically signed by: Ryan Samuel MD (Dec 06, 2016 10:49:21)
[2016-12-06] MEDS: ALBUTEROL SULFATE 2.5 MG/3 ML NEBU. NEB PRN ×2 (11:09→19:39)
--- NOTE | 2016-12-06 13:25 | PDOC ---
PROGRESS NOTES Assessment Assessment Left UE pain. 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 Generalized weakness. COPD Anemia CAD, s/p CABG CHF AFib HTN HLD Malnutrition RECOMMENDATIONS/PLAN: Continue Lyrica, increased to 100 mg bid. EMG/NCS can be done as out-patient. OT/PT Rehab. Please consult [facility] about placement. HISTORY OF THE PRESENT ILLNESS: 66-y-old male patient with chronic pain in his left medial aspect of UE for several weeks. He stated he was evaluated at but no answer to his complaints of pain in his left UE. he described that his pain likes electric type sometimes. He stated he took Neurontin for 2 years for his UE pain but did not help his symptoms. PAST MEDICAL HISTORY: Please see above. PAST SURGERY HISTORY: S/P CABG Tonsillectomy ALLERGY: Reviewed MEDICATIONS: Refer to [facility] FAMILY HISTORY: Non contributory. SOCIAL HISTORY: Denies current smoking, drinking, and illicit drug use. He was a former smoker. REVIEW OF SYSTEMS: Constitutional: Malnutrition. Head: No traumatic brain or head injury. Skin: No edema, or rash. Ear: No infection, tinnitus. Eyes: No vision loss or color blindness. Nose: No bleeding or purulent discharges. Hearing: Hearing decrease. Neck: No injury. Cardiac: ME, CAD, s/p CABG, AFib, HTN, HLD. Pulmonary: COPD. GI: No GI ulcer, GI bleeding. Urinary/genital: UTI. Endocrinologic: No cousin face, craniofacial dysmorphism, polydactyly, goiter. Skeletomuscular: No muscular wasting. Neurological: see HP. Psychiatric: Denies drug use/abuse. Otherwise, not [id number] review of systems. PHYSICAL EXAMINATION: General appearance is in chronic distress. HEENT: Normocephalic and nontraumatic. Eyes, nose, ears, and throat are unremarkable. Neck is supple. No lymphadenopathy. No crepitus. Cardiovascular: S1, S2, regular rate and rhythm. Pulmonary: Clear to auscultation bilaterally. Abdomen: Bowel sounds are positive. Extremities: No rash, lesions, or edema. No restriction of range of motion NEUROLOGICAL EXAMINATION: Alert Oriented to time, place and person. PERRL. EOMI. CN: no focal findings. Muscle tone: within normal. Muscle strength: 4+ DTR: 2- Plantar reflex: Flexor response bilaterally Gait: Unable to walk. Sensory exam: pain in left should joint and left medial aspect of UE. No acute cerebellar signs elicited. F-T-N test fine in right side. Objective Objective Vital Signs Date Time Temp Pulse Resp B/P Pulse Ox O2 Delivery O2 Flow Rate FiO2 12/06/16 13:00 Nasal Cannula 2.0 12/06/16 11:09 95 12/06/16 10:41 97.7 83 16 139/91 97.7 Intake and Output 12/06/16 07:00 Intake Total 717 ml Output Total 1525 ml Balance -808 ml Intake Oral 717 ml Output Urine Total 1525 ml Vitals Signs Vitals VS - Last 72 Hours, by Label Date Time Temp Pulse Resp B/P Pulse Ox O2 Delivery O2 Flow Rate FiO2 12/06/16 13:00 Nasal Cannula 2.0 12/06/16 11:09 95 Room Air 2.0 12/06/16 10:48 Nasal Cannula 2.0 12/06/16 10:41 97.7 83 16 139/91 100 Room Air 97.7 12/06/16 09:42 Nasal Cannula 2.0 12/06/16 08:20 63 125/65 12/06/16 08:20 63 125/65 12/06/16 08:18 Nasal Cannula 2.0 12/06/16 08:00 Nasal Cannula 2.0 12/06/16 07:44 96.4 63 20 125/65 98 Nasal Cannula 2.0 96.4 12/06/16 06:01 18 12/06/16 05:01 18 Nasal Cannula 12/06/16 03:00 98.1 68 18 119/63 100 Nasal Cannula 2.0 98.1 12/06/16 01:24 18 12/05/16 23:46 18 Nasal Cannula 2.0 12/05/16 23:00 98.4 73 18 121/74 98 Nasal Cannula 2.0 98.4 12/05/16 21:24 18 Room Air 12/05/16 19:50 Nasal Cannula 2.0 12/05/16 19:46 18 Nasal Cannula 2.0 12/05/16 19:00 97.7 81 18 112/54 100 Nasal Cannula 2.0 97.7 12/05/16 16:27 100 Nasal Cannula 2.0 12/05/16 15:07 Nasal Cannula 3.0 12/05/16 15:00 98.1 71 20 136/61 100 Nasal Cannula 2.0 98.1 12/05/16 11:00 97.4 91 20 138/65 84 Nasal Cannula 2.0 97.4 12/05/16 10:34 98 Nasal Cannula 2.0 12/05/16 08:50 BiPAP/CPAP 2.0 12/05/16 08:49 70 128/63 12/05/16 08:49 70 128/63 12/05/16 08:00 Nasal Cannula 2.0 12/05/16 07:00 97.3 70 18 128/63 99 Nasal Cannula 2.0 97.3 Medication Medications Current Medications Lorazepam (Ativan) 1 mg 1X ONCE IV Last administered on 12/06/16t 09:42; Start 12/06/16 at 09:45; Stop 12/06/16 at 09:46; Status DC Comment Review of Relevant I have reviewed the following items meka (where applicable) has been applied. KATE TERRAZAS MD Dec 06, 2016 13:25
[2016-12-06 15:31] VITALS: BP 107/41
--- NOTE | 2016-12-06 16:38 | PDOC ---
SUBJECTIVE Subjective Late entry. Pt seen and examined 12:30 today. Denies acute changes. Reports improvement of arm pain. Reports increased shoulder pain. OBJECTIVE Objective MRI cervical spine with diffuse degenerative changes. There is some motion artifact but it appears that there is central stenosis C3-4 and C4-5 due to degenerative changes. At C5-6 there is right foraminal stenosis. At C6-7 there is disc protrusion to the right lateral recess with right foraminal stenosis. C7 -T1 without significant stenosis Vital Signs Vital Signs Date Time Temp Pulse Resp B/P Pulse Ox O2 Delivery O2 Flow Rate FiO2 12/06/16 15:31 97.7 81 20 107/41 97 Nasal Cannula 2.0 97.7 12/06/16 15:04 Nasal Cannula 3.0 12/06/16 13:33 95 Nasal Cannula 2.0 12/06/16 13:00 Nasal Cannula 2.0 12/06/16 11:09 95 Room Air 2.0 12/06/16 10:41 97.7 83 16 139/91 100 Room Air 97.7 12/06/16 09:42 Nasal Cannula 2.0 12/06/16 08:20 63 125/65 12/06/16 08:20 63 125/65 12/06/16 08:18 Nasal Cannula 2.0 12/06/16 08:00 Nasal Cannula 2.0 12/06/16 07:44 96.4 63 20 125/65 98 Nasal Cannula 2.0 96.4 12/06/16 06:01 18 12/06/16 05:01 18 Nasal Cannula 12/06/16 03:00 98.1 68 18 119/63 100 Nasal Cannula 2.0 98.1 12/06/16 01:24 18 12/05/16 23:46 18 Nasal Cannula 2.0 12/05/16 23:00 98.4 73 18 121/74 98 Nasal Cannula 2.0 98.4 12/05/16 21:24 18 Room Air 12/05/16 19:50 Nasal Cannula 2.0 12/05/16 19:46 18 Nasal Cannula 2.0 12/05/16 19:00 97.7 81 18 112/54 100 Nasal Cannula 2.0 97.7 12/05/16 16:27 100 Nasal Cannula 2.0 I & O Intake and Output 12/06/16 07:00 Intake Total 717 ml Output Total 1525 ml Balance -808 ml Intake Oral 717 ml Output Urine Total 1525 ml PHYSICAL EXAM Physical Exam AA, NAD, sitting at edge of bed, BOONE with 5/5 resistance, sensation intact LT, reports pain in left shoulder to palpation, some reproduction of medial left arm pain with palpation over cubital tunnel ASSESSMENT/PLAN Assessment/Plan 66M with LUE pain that he explains is slightly improved today but with increased shoulder pain. He continues to describe a C8 vs ulnar distribution to myself. While there is degenerative stenosis more cephalad, there is no specific compromise of the left C8 nerve root on the cervical MRI. An EMG/NCS may be of benefit. Consult for pain management noted in orders. Left shoulder ( GH) tender to palpation and with ROM - possible pathology of left shoulder contributing? Findings discussed with patient. Of note, he reiterated that he does not wish to have interventions such as injections or surgeries if such things were recommended. Problems: JAYY BASS MD Dec 06, 2016 16:38
[2016-12-06 19:24] VITALS: BP 102/60
[2016-12-06] MEDS: ATORVASTATIN CALCIUM 10 MG TABLET. PO SCH (21:11)
[2016-12-06 23:28] VITALS: BP 123/61
[2016-12-07] MEDS: OXYCODONE IR 5 MG TABLET. PO PRN ×5 (01:13→20:52)
[2016-12-07 03:30] VITALS: BP 139/82
--- NOTE | 2016-12-07 04:56 | PN ---
DATE: 12/06/2016 SUBJECTIVE: The patient was sitting on the edge of the bed, eating his lunch comfortably, in no apparent respiratory distress. On examining him, he continued to complain of pain in his left arm, back and neck. He has had an MRI of his lumbar spine, which basically showed that there is multilevel ____ degenerative disk disease throughout lumbar spine. There is multilevel spondylosis. There is multilevel mild lateral recess stenosis as stated. There is neural foraminal compromise as stated, greater on the left at L4-L5, L5-S1, and on the right at L3-L4. There is moderate left lumbar levoscoliosis. There is an abdominal aortic aneurysm ____ in the order of 5.3 cm in the axial plane. Had also MRI of his cervical spine, which showed that there is spinal stenosis at the order of 5 to 6 mm at C3-C4 and C4-C5, minimally at C5-C6 and C6-C7, with right greater degree of right lateral recess stenosis at these levels. There is also mild spinal stenosis at C2-C3, cord signal abnormality at C3-C4 and C4-C5 due to cord edema. Myelomalacia cannot be excluded on this exam. There is suspected multilevel cervical neural foraminal compromise, although poorly characterized due to motion, narrowing likely greatest on the right at C3-C4, C5-C6, C6-C7, and on the left at C4-C5. There is multilevel advanced degenerative disk disease of cervical spine, greatest at C3-C4 through C6-C7, multilevel spondylosis C5-C6 endplate edema is likely reactive, degenerative in nature. He was seen in consultation by the neurosurgeon as well as the neurologist. For some reason, the compression fracture that was seen on the CT scan done at [facility] is not mentioned on the MRI. As the patient continued to have severe pain and is not interested in any surgical intervention, I will consult the [facility] to see if they can offer other alternative means of treatment, given he has also multiple comorbidities including COPD and congestive heart failure. PHYSICAL EXAMINATION: GENERAL: When I examined him this morning, he looked pale, but no jaundice, cyanosis or thyromegaly. No jugular venous distention. No limb edema. VITAL SIGNS: His heart rate was 83, blood pressure was 139/91, temperature was 97.7, respiratory rate was 16, and oxygen saturation was 100% on 2 liters of oxygen. The rest of clinical examination is unremarkable, has not really changed. LABORATORY DATA: Showed a white cell count of 9100, hemoglobin 9.2, hematocrit 28.6, MCV 91, and platelet count of 199,000. His chemistry showed a serum sodium 140, potassium of 4.8, chloride 103, bicarbonate 31, anion gap of 6, BUN 33, creatinine 1.3. Estimated GFR was 54 mL per minute. His glucose was 209. Calcium was 9.2. Total bilirubin, AST, ALT, alkaline phosphatase were normal. His total protein was 6.4, albumin 2.8. His TSH is extremely low and undetectable at 0.027. His free T4 was high also low at 2.97 and free T3 was 3.82 indicating that probably he has thyrotoxicosis. ASSESSMENT: In summary, this is a 66-year-old male patient, who came in with a complaint of neck and back pain, pain in his left upper extremity. His MRI showed that he has spinal stenosis, especially in the cervical spine at C3-C4 and C4-C5. PLAN: My plan is to continue with pain medication, consult Pain Management, and we will decide on further management accordingly. LISSET NEWBERRY MD DR: JESSE/gilberto JOB#: [id number] / [id number]
[2016-12-07 05:13] LABS: BASO % 0 % (0-3); EOS % 0 % (0-3); HEMATOCRIT 32.4 % (39.0-53.0); HEMOGLOBIN 10.3 g/dL (13.0-17.5); LYMPH # 0.8 x10^3/uL (1.0-4.8); LYMPH % 7 % (24-48); MEAN CORPUSCULAR HEMOGLOBIN 29 pg (25-35); MEAN CORPUSCULAR HGB CONC 32 g/dL (31-37); MEAN CORPUSCULAR VOLUME 91 fL (79-100); MONO % 8 % (0-9); NEUT % 85 % (31-73); PLATELET COUNT 267 x10^3/uL (140-400); RED BLOOD COUNT 3.58 x10^6/uL (4.30-5.70); RED CELL DISTRIBUTION WIDTH 16.8 % (11.5-14.5); WHITE BLOOD COUNT 11.6 x10^3/uL (4.0-11.0)
[2016-12-07 05:29] LABS: ALBUMIN 3.5 g/dL (3.4-5.0); ALBUMIN/GLOBULIN RATIO 0.9 (1.0-1.7); CALCIUM 9.7 mg/dL (8.5-10.1); CREATININE 1.1 mg/dL (0.7-1.3); GFR 66.6; POTASSIUM 4.8 mmol/L (3.5-5.1); TOTAL BILIRUBIN 0.4 mg/dL (0.2-1.0); TOTAL PROTEIN 7.2 g/dL (6.4-8.2)
[2016-12-07] MEDS: PANTOPRAZOLE 40 MG TABLET. PO SCH ×2 (06:20→16:27)
[2016-12-07 07:00] VITALS: BP 114/44
[2016-12-07] MEDS: ALBUTEROL SULFATE 2.5 MG/3 ML NEBU. NEB PRN ×3 (07:09→19:26)
[2016-12-07] MEDS: METOPROLOL SUCC 24HR ER 50 MG TAB.ER.24H. PO SCH (08:59)
[2016-12-07] MEDS: CETIRIZINE HCL 10 MG TABLET PO SCH (09:00)
[2016-12-07] MEDS: POTASSIUM CITRATE 10 MEQ TABLET.ER PO SCH (09:00)
[2016-12-07] MEDS: PREGABALIN 50 MG CAPSULE PO SCH ×2 (09:01→20:44)
[2016-12-07] MEDS: PREDNISONE 20 MG TABLET PO SCH ×2 (09:01→16:28)
[2016-12-07] MEDS: ASCORBIC ACID 500 MG TABLET PO SCH (09:02)
[2016-12-07] MEDS: POTASSIUM CHLORIDE 20 MEQ TABLET.ER. PO SCH ×3 (09:02→16:27)
[2016-12-07] MEDS: LISINOPRIL 5 MG TABLET. PO SCH (09:02)
[2016-12-07] MEDS: FERROUS SULFATE 325 MG TABLET PO SCH ×2 (09:03→16:33)
[2016-12-07] MEDS: FUROSEMIDE 20 MG TABLET PO SCH (09:03)
[2016-12-07] MEDS: OXYCODONE ER 10 MG TAB.ER.12H. PO SCH ×2 (09:04→20:45)
[2016-12-07] MEDS: GUAIFENESIN ER 600 MG TABLET.ER PO SCH ×2 (09:04→20:45)
[2016-12-07 11:00] VITALS: BP 124/48
[2016-12-07] MEDS: ASPIRIN 81 MG TAB.CHEW PO SCH (12:27)
[2016-12-07] MEDS: APIXABAN 5 MG TABLET. PO SCH ×2 (12:27→20:45)
--- NOTE | 2016-12-07 14:07 | PDOC ---
PROGRESS NOTES Assessment Assessment Left UE pain. 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 Generalized weakness. COPD Anemia CAD, s/p CABG CHF AFib HTN HLD Malnutrition RECOMMENDATIONS/PLAN: Continue Lyrica 100 mg bid. EMG/NCS can be done as out-patient. OT/PT Rehab. HISTORY OF THE PRESENT ILLNESS: 66-y-old male patient with chronic pain in his left medial aspect of UE for several weeks. He stated he was evaluated at but no answer to his complaints of pain in his left UE. he described that his pain likes electric type sometimes. He stated he took Neurontin for 2 years for his UE pain but did not help his symptoms. He stated on 12/07 that Lyrica helped his sensory symptoms in his left UE in some degree, but he said he had vomiting and did not get medication down. PAST MEDICAL HISTORY: Please see above. PAST SURGERY HISTORY: S/P CABG Tonsillectomy ALLERGY: Reviewed MEDICATIONS: Refer to [facility] HISTORY: Non contributory. SOCIAL HISTORY: Denies current smoking, drinking, and illicit drug use. He was a former smoker. REVIEW OF SYSTEMS: Constitutional: Malnutrition. Head: No traumatic brain or head injury. Skin: No edema, or rash. Ear: No infection, tinnitus. Eyes: No vision loss or color blindness. Nose: No bleeding or purulent discharges. Hearing: Hearing decrease. Neck: No injury. Cardiac: RI, CAD, s/p CABG, AFib, HTN, HLD. Pulmonary: COPD. GI: No GI ulcer, GI bleeding. Urinary/genital: UTI. Endocrinologic: No cousin face, craniofacial dysmorphism, polydactyly, goiter. Skeletomuscular: No muscular wasting. Neurological: see HP. Psychiatric: Denies drug use/abuse. Otherwise, not -zlcwy review of systems. PHYSICAL EXAMINATION: General appearance is in chronic distress. HEENT: Normocephalic and nontraumatic. Eyes, nose, ears, and throat are unremarkable. Neck is supple. No lymphadenopathy. No crepitus. Cardiovascular: S1, S2, regular rate and rhythm. Pulmonary: Clear to auscultation bilaterally. Abdomen: Bowel sounds are positive. Extremities: No rash, lesions, or edema. No restriction of range of motion NEUROLOGICAL EXAMINATION: Alert Oriented to time, place and person. PERRL. EOMI. CN: no focal findings. Muscle tone: within normal. Muscle strength: 4+ DTR: 2- Plantar reflex: Flexor response bilaterally Gait: Unable to walk. Sensory exam: pain in left should joint and left medial aspect of UE. No acute cerebellar signs elicited. F-T-N test fine in right side. Objective Objective Vital Signs Date Time Temp Pulse Resp B/P Pulse Ox O2 Delivery O2 Flow Rate FiO2 12/07/16 11:51 92 Nasal Cannula 3.0 12/07/16 11:00 97.7 76 20 124/48 97.7 Intake and Output 12/07/16 07:00 Intake Total 840 ml Output Total 2150 ml Balance -1310 ml Intake Oral 840 ml Output Urine Total 1750 ml Drainage Total 400 ml # Voids 4 # Bowel Movements 1 Vitals Signs Vitals VS - Last 72 Hours, by Label Date Time Temp Pulse Resp B/P Pulse Ox O2 Delivery O2 Flow Rate FiO2 12/07/16 11:51 92 Nasal Cannula 3.0 12/07/16 11:00 97.7 76 20 124/48 92 Nasal Cannula 3.0 97.7 12/07/16 09:04 Nasal Cannula 12/07/16 09:02 74 114/44 12/07/16 08:59 74 114/44 12/07/16 08:00 Nasal Cannula 3.0 12/07/16 07:12 98 Room Air 12/07/16 07:00 97.7 74 20 114/44 99 Nasal Cannula 3.0 97.7 12/07/16 06:20 Nasal Cannula 12/07/16 05:23 Nasal Cannula 12/07/16 03:30 98.1 83 22 139/82 96 Nasal Cannula 3.0 98.1 12/07/16 01:13 18 Nasal Cannula 2.0 12/07/16 01:12 18 Nasal Cannula 2.0 12/06/16 23:28 97.9 70 18 123/61 98 Nasal Cannula 3.0 97.9 12/06/16 22:11 18 2.0 12/06/16 21:12 18 Nasal Cannula 2.0 12/06/16 21:12 18 Nasal Cannula 2.0 12/06/16 20:00 Nasal Cannula 2.0 12/06/16 19:41 100 Room Air 2.0 12/06/16 19:24 98.1 75 21 102/60 96 Nasal Cannula 3.0 98.1 12/06/16 17:09 Nasal Cannula 3.0 12/06/16 15:31 97.7 81 20 107/41 97 Nasal Cannula 2.0 97.7 12/06/16 13:33 95 Nasal Cannula 2.0 12/06/16 11:09 95 Room Air 2.0 12/06/16 10:41 97.7 83 16 139/91 100 Room Air 97.7 12/06/16 09:42 Nasal Cannula 2.0 12/06/16 08:20 63 125/65 12/06/16 08:20 63 125/65 12/06/16 08:18 Nasal Cannula 2.0 12/06/16 08:00 Nasal Cannula 2.0 12/06/16 07:44 96.4 63 20 125/65 98 Nasal Cannula 2.0 96.4 Laboratory Laboratory Laboratory Tests Test 12/07/16 04:25 White Blood Count 11.6x10^3/uL (4.0-11.0) Red Blood Count 3.58x10^6/uL (4.30-5.70) Hemoglobin 10.3g/dL (13.0-17.5) Hematocrit 32.4% (39.0-53.0) Mean Corpuscular Volume 91fL (79-100) Mean Corpuscular Hemoglobin 29pg (25-35) Mean Corpuscular Hemoglobin Concent 32g/dL (31-37) Red Cell Distribution Width 16.8% (11.5-14.5) Platelet Count 267x10^3/uL (140-400) Neutrophils (%) (Auto) 85% (31-73) Lymphocytes (%) (Auto) 7% (24-48) Monocytes (%) (Auto) 8% (0-9) Eosinophils (%) (Auto) 0% (0-3) Basophils (%) (Auto) 0% (0-3) Neutrophils # (Auto) 9.8x10^3uL (1.8-7.7) Lymphocytes # (Auto) 0.8x10^3/uL (1.0-4.8) Monocytes # (Auto) 0.9x10^3/uL (0.0-1.1) Eosinophils # (Auto) 0.0x10^3/uL (0.0-0.7) Basophils # (Auto) 0.0x10^3/uL (0.0-0.2) Sodium Level 142mmol/L (136-145) Potassium Level 4.8mmol/L (3.5-5.1) Chloride Level 104mmol/L (98-107) Carbon Dioxide Level 32mmol/L (21-32) Anion Gap 6 (6-14) Blood Urea Nitrogen 30mg/dL (8-26) Creatinine 1.1mg/dL (0.7-1.3) Estimated GFR (Cockcroft-Gault) 66.6 BUN/Creatinine Ratio 27 (6-20) Glucose Level 78mg/dL (70-99) Calcium Level 9.7mg/dL (8.5-10.1) Total Bilirubin 0.4mg/dL (0.2-1.0) Aspartate Amino Transf (AST/SGOT) 8U/L (15-37) Alanine Aminotransferase (ALT/SGPT) 16U/L (16-63) Alkaline Phosphatase 106U/L (46-116) Total Protein 7.2g/dL (6.4-8.2) Albumin 3.5g/dL (3.4-5.0) Albumin/Globulin Ratio 0.9 (1.0-1.7) Medication Medications Current Medications Albuterol Sulfate (Ventolin Neb Soln) 2.5 mg PRN Q4HRS PRN NEB SHORTNESS OF BREATH Last administered on 12/07/16 07:09; Start 12/07/16 at 17:30 Apixaban (Eliquis) 5 mg BID PO Last administered on 12/07/16 12:27; Start at 12:30 Aspirin (Children'S Aspirin) 81 mg DAILY PO Last administered on 12/07/16 12:27 ; Start 12/07/16 at 12:30 Oxycodone HCl (Oxycontin) 20 mg Q12HR PO ; Start 12/07/16 at 21:00 Comment Review of Relevant I have reviewed the following items meka (where applicable) has been applied. KATE TERRAZAS MD Dec 07, 2016 14:07
[2016-12-07 15:00] VITALS: BP 95/52
[2016-12-07 19:35] VITALS: BP 119/66
[2016-12-07] MEDS: ATORVASTATIN CALCIUM 10 MG TABLET. PO SCH (20:45)
[2016-12-07 23:52] VITALS: BP 117/61
[2016-12-08] MEDS: OXYCODONE IR 5 MG TABLET. PO PRN ×6 (01:42→22:48)
[2016-12-08 03:15] VITALS: BP 125/72
[2016-12-08 07:00] VITALS: BP 125/70
[2016-12-08] MEDS: FERROUS SULFATE 325 MG TABLET PO SCH ×2 (08:53→18:15)
[2016-12-08] MEDS: POTASSIUM CHLORIDE 20 MEQ TABLET.ER. PO SCH ×3 (08:53→18:15)
[2016-12-08] MEDS: APIXABAN 5 MG TABLET. PO SCH ×2 (08:53→20:47)
[2016-12-08] MEDS: GUAIFENESIN ER 600 MG TABLET.ER PO SCH ×2 (08:53→20:48)
[2016-12-08] MEDS: FUROSEMIDE 20 MG TABLET PO SCH (08:53)
[2016-12-08] MEDS: CETIRIZINE HCL 10 MG TABLET PO SCH (08:53)
[2016-12-08] MEDS: POTASSIUM CITRATE 10 MEQ TABLET.ER PO SCH (08:54)
[2016-12-08] MEDS: PREGABALIN 50 MG CAPSULE PO SCH ×2 (08:54→20:48)
[2016-12-08] MEDS: PREDNISONE 20 MG TABLET PO SCH ×2 (08:54→18:15)
[2016-12-08] MEDS: METOPROLOL SUCC 24HR ER 50 MG TAB.ER.24H. PO SCH (08:55)
[2016-12-08] MEDS: PANTOPRAZOLE 40 MG TABLET. PO SCH ×2 (08:55→18:15)
[2016-12-08] MEDS: ASCORBIC ACID 500 MG TABLET PO SCH (08:55)
[2016-12-08] MEDS: ASPIRIN 81 MG TAB.CHEW PO SCH (08:55)
[2016-12-08] MEDS: LISINOPRIL 5 MG TABLET. PO SCH (08:55)
[2016-12-08] MEDS: OXYCODONE ER 10 MG TAB.ER.12H. PO SCH ×2 (08:56→20:49)
[2016-12-08] MEDS: ALBUTEROL SULFATE 2.5 MG/3 ML NEBU. NEB PRN ×2 (10:52→20:48)
[2016-12-08 11:00] VITALS: BP 120/67
--- NOTE | 2016-12-08 11:08 | PN ---
DATE: 12/07/2016 SUBJECTIVE: The patient is resting, slightly propped up in bed, in no apparent distress. He continued to complain of pain in his shoulder. We did consult the pain management, unfortunately Dr. Jono Araiza is out of town and will be here on Friday and as he continued to have severe back pain and neck pain, I increased his OxyContin to 20 mg twice a day and the plan is for him to stay here until he sees the pain management team on Friday and then can be discharged home. PHYSICAL EXAMINATION: GENERAL: When I examined him this afternoon, he looked well and was clearly in no apparent respiratory distress, pale, but no jaundice, cyanosis or thyromegaly. No jugular venous distention. No limb edema. VITAL SIGNS: His heart rate was 74, blood pressure 114/44, temperature was 97.7, respiratory rate was 20, and oxygen saturation was 98% on 3 liters of oxygen by nasal cannula. The rest of the clinical examination is unremarkable, has not really changed. LABORATORY DATA: This morning showed a serum sodium 142, potassium 4.8, chloride 104, bicarbonate 32, anion gap of 6, BUN 30, creatinine 1.1, estimated GFR was 66 mL per minute, his glucose was 78. Calcium was 9.7. Total bilirubin, AST, ALT, alkaline phosphatase were normal. Total protein was 7.2, albumin was 3.5. TSH was extremely low; however, his ____ was high also 2.97, however, his ____ was 3.82, which is within normal range. His white cell count was 11,600, hemoglobin 10, hematocrit 32, MCV 91, and platelet count 267,000. His HIV antibody was nonreactive. His desire screen for MRSA by PCR was positive. ASSESSMENT: Left upper extremity pain, possible left ulnar nerve entrapment, chronic obstructive pulmonary disease, congestive heart failure, coronary artery disease status post coronary artery bypass graft, atrial fibrillation rate controlled, well anticoagulated on Eliquis, hyperlipidemia. PLAN: My plan is to continue with Lyrica. I have restarted his Eliquis as well as aspirin. I have increased his OxyContin to 20 mg twice a day. We will await for evaluation by the pain management team on Friday morning. AHMED M. CONI, MD DR: JESSE/gilberto JOB#: [id number] / [id number]
--- NOTE | 2016-12-08 13:36 | PDOC ---
PROGRESS NOTES Assessment Assessment Left UE pain. 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 Generalized weakness. COPD Anemia CAD, s/p CABG CHF AFib HTN HLD Malnutrition RECOMMENDATIONS/PLAN: Continue Lyrica 100 mg bid, may increase to 150 mg bid after 1 week if tolerates. EMG/NCS can be done as out-patient. Lab for [facility] OT/PT Rehab. HISTORY OF THE PRESENT ILLNESS: 66-y-old male patient with chronic pain in his left medial aspect of UE for several weeks. He stated he was evaluated at but no answer to his complaints of pain in his left UE. he described that his pain likes electric type sometimes. He stated he took Neurontin for 2 years for his UE pain but did not help his symptoms. He stated on 12/07 that Lyrica helped his sensory symptoms in his left UE in some degree, but he said he had vomiting and did not get medication down. Increased muscle strength in left UE since 12/07. PAST MEDICAL HISTORY: Please see above. PAST SURGERY HISTORY: S/P CABG Tonsillectomy ALLERGY: Reviewed MEDICATIONS: Refer to [facility] HISTORY: Non contributory. SOCIAL HISTORY: Denies current smoking, drinking, and illicit drug use. He was a former smoker. REVIEW OF SYSTEMS: Constitutional: Malnutrition. Head: No traumatic brain or head injury. Skin: No edema, or rash. Ear: No infection, tinnitus. Eyes: No vision loss or color blindness. Nose: No bleeding or purulent discharges. Hearing: Hearing decrease. Neck: No injury. Cardiac: [place], CAD, s/p CABG, AFib, HTN, HLD. Pulmonary: COPD. GI: No GI ulcer, GI bleeding. Urinary/genital: UTI. Endocrinologic: No cousin face, craniofacial dysmorphism, polydactyly, goiter. Skeletomuscular: No muscular wasting. Neurological: see HP. Psychiatric: Denies drug use/abuse. Otherwise, not [id number] review of systems. PHYSICAL EXAMINATION: General appearance is in chronic distress. HEENT: Normocephalic and nontraumatic. Eyes, nose, ears, and throat are unremarkable. Neck is supple. No lymphadenopathy. No crepitus. Cardiovascular: S1, S2, regular rate and rhythm. Pulmonary: Clear to auscultation bilaterally. Abdomen: Bowel sounds are positive. Extremities: No rash, lesions, or edema. No restriction of range of motion NEUROLOGICAL EXAMINATION: Alert Oriented to time, place and person. PERRL. EOMI. CN: no focal findings. Muscle tone: within normal. Muscle strength: 4+ DTR: 2- Plantar reflex: Flexor response bilaterally Gait: Able to walk. Sensory exam: pain in left should joint and left medial aspect of UE. No acute cerebellar signs elicited. F-T-N test fine. Objective Objective Vital Signs Date Time Temp Pulse Resp B/P Pulse Ox O2 Delivery O2 Flow Rate FiO2 12/08/16 11:06 18 96 Nasal Cannula 2.0 12/08/16 11:00 97.8 70 120/67 97.8 Intake and Output 12/08/16 07:00 Intake Total 240 ml Output Total 880 ml Balance -640 ml Intake Oral 240 ml Output Urine Total 880 ml # Voids 6 Vitals Signs Vitals VS - Last 72 Hours, by Label Date Time Temp Pulse Resp B/P Pulse Ox O2 Delivery O2 Flow Rate FiO2 12/08/16 11:06 18 96 Nasal Cannula 2.0 12/08/16 11:00 97.8 70 20 120/67 93 Nasal Cannula 3.0 97.8 12/08/16 10:54 Room Air 2.0 12/08/16 10:06 16 Nasal Cannula 2.0 12/08/16 08:56 16 Nasal Cannula 2.0 12/08/16 08:55 70 125/70 12/08/16 08:55 70 125/70 12/08/16 07:00 97.6 70 20 125/70 98 Nasal Cannula 3.0 97.6 12/08/16 03:15 97.3 72 16 125/72 98 Nasal Cannula 3.0 97.3 12/07/16 23:52 97.7 70 20 117/61 90 Nasal Cannula 3.0 97.7 12/07/16 19:50 Nasal Cannula 2.0 12/07/16 19:35 97.7 76 20 119/66 99 Nasal Cannula 3.0 97.7 12/07/16 19:33 99 Room Air 2.0 12/07/16 16:27 99 Nasal Cannula 2.0 12/07/16 15:03 Room Air 2.0 12/07/16 15:00 98.1 92 20 95/52 99 Nasal Cannula 3.0 98.1 12/07/16 11:51 92 Nasal Cannula 3.0 12/07/16 11:00 97.7 76 20 124/48 92 Nasal Cannula 3.0 97.7 12/07/16 09:04 Nasal Cannula 12/07/16 09:02 74 114/44 12/07/16 08:59 74 114/44 12/07/16 08:00 Nasal Cannula 3.0 12/07/16 07:12 98 Room Air 12/07/16 07:00 97.7 74 20 114/44 99 Nasal Cannula 3.0 97.7 Medication Medications Current Medications Albuterol Sulfate (Ventolin Neb Soln) 2.5 mg PRN Q4HRS PRN NEB SHORTNESS OF BREATH Last administered on 12/08/16 10:52; Start 12/07/16 at 17:30 Oxycodone HCl (Oxycontin) 20 mg Q12HR PO Last administered on 12/08/16 08:56; Start 12/07/16 at 21:00 Comment Review of Relevant I have reviewed the following items meka (where applicable) has been applied. KATE TERRAZAS MD Dec 08, 2016 13:36
[2016-12-08 15:00] VITALS: BP 101/66
--- NOTE | 2016-12-08 15:01 | RAD ---
Examination: Frontal view the pelvis and frog-leg views of the bilateral hips History: History of pain bilateral hips. Comparison: None available Findings: Right femoral prosthesis appears in place. Moderate joint space loss identified in the left hip joint likely degeneration. Vascular stent projects in the left pelvis region. No acute fracture or dislocation identified Impression: 1. Right femoral prosthesis in place. 2. Moderate degenerative changes left hip joint.
[2016-12-08 19:10] VITALS: BP 120/64
[2016-12-08] MEDS: ATORVASTATIN CALCIUM 10 MG TABLET. PO SCH (20:47)
[2016-12-08 22:59] VITALS: BP 130/74
--- NOTE | 2016-12-08 23:10 | PN ---
DATE: SUBJECTIVE: The patient is resting slightly propped up in bed, in no apparent distress. He continued to complain of pain ____ basically waiting for Dr. Jono Araiza to evaluate him and to make a recommendation as to the best way to control his pain. He is now on 20 mg of oxycodone twice a day and the extended release form is also oxycodone, immediate release 10 mg every 4 hours. He is also on Lyrica 50 mg twice a day. He apparently has had his hip joint replaced and would like to be seen by an orthopedic surgeon. He claimed that he was told that he is to be revised. PHYSICAL EXAMINATION: GENERAL: When I examined him this morning, he looked well and was clearly in no apparent respiratory distress, pale, but no jaundice, cyanosis or thyromegaly. No jugular venous distention. No ____. VITAL SIGNS: His heart rate was 70, blood pressure 120/67, temperature was 97.8, respiratory rate 20, and oxygen saturation was 93% on 3 liters of oxygen. The rest of clinical examination is unremarkable, has not really changed. His intake was 840, output was 2150. LABORATORY DATA: His most recent lab work showed that his BUN was 30, creatinine 1.1. Hemoglobin A1c was 4.6, white cell count was 11,600, hemoglobin 10, hematocrit 32, MCV 91, and platelet count 267,000. ASSESSMENT: 1. Severe complaint of neck pain and back pain. 2. Left lower extremity pain in distribution of the left ulnar nerve. His CT scan at [facility] showed compression fracture of L1, however, the MRI did not reveal any compression fracture here. He was seen in consultation by the neurologist and neurosurgeon. The patient himself does not want any invasive procedure. I have consulted Dr. Jono Araiza for pain management and apparently he was out of town. He will be seen tomorrow and hopefully can be discharged to follow with his primary care physician at the [facility]. LISSET NEWBERRY MD DR: JESSE/gilberto JOB#: [id number] / [id number]
[2016-12-09 02:51] VITALS: BP 153/83
[2016-12-09] MEDS: OXYCODONE IR 5 MG TABLET. PO PRN ×5 (03:07→20:55)
[2016-12-09 07:00] VITALS: BP 125/72
[2016-12-09] MEDS: ALBUTEROL SULFATE 2.5 MG/3 ML NEBU. NEB PRN ×4 (07:22→20:46)
[2016-12-09] MEDS: OXYCODONE ER 10 MG TAB.ER.12H. PO SCH ×2 (08:31→20:55)
[2016-12-09] MEDS: PREDNISONE 20 MG TABLET PO SCH ×2 (08:32→16:53)
[2016-12-09] MEDS: POTASSIUM CITRATE 10 MEQ TABLET.ER PO SCH (08:32)
[2016-12-09] MEDS: CETIRIZINE HCL 10 MG TABLET PO SCH (08:32)
[2016-12-09] MEDS: FERROUS SULFATE 325 MG TABLET PO SCH ×2 (08:32→16:53)
[2016-12-09] MEDS: POTASSIUM CHLORIDE 20 MEQ TABLET.ER. PO SCH ×3 (08:32→16:53)
[2016-12-09] MEDS: ASPIRIN 81 MG TAB.CHEW PO SCH (08:32)
[2016-12-09] MEDS: APIXABAN 5 MG TABLET. PO SCH ×2 (08:32→20:55)
[2016-12-09] MEDS: GUAIFENESIN ER 600 MG TABLET.ER PO SCH ×2 (08:32→20:55)
[2016-12-09] MEDS: METOPROLOL SUCC 24HR ER 50 MG TAB.ER.24H. PO SCH (08:33)
[2016-12-09] MEDS: FUROSEMIDE 20 MG TABLET PO SCH (08:33)
[2016-12-09] MEDS: PREGABALIN 50 MG CAPSULE PO SCH ×2 (08:33→20:54)
[2016-12-09] MEDS: PANTOPRAZOLE 40 MG TABLET. PO SCH ×2 (08:33→16:53)
[2016-12-09] MEDS: ASCORBIC ACID 500 MG TABLET PO SCH (08:33)
[2016-12-09] MEDS: LISINOPRIL 5 MG TABLET. PO SCH (08:33)
--- NOTE | 2016-12-09 10:06 | PDOC ---
PROGRESS NOTES Assessment Assessment Left UE pain. 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 Generalized weakness. COPD Anemia CAD, s/p CABG CHF AFib HTN HLD Mild malnutrition RECOMMENDATIONS/PLAN: Continue Lyrica 100 mg bid, may increase to 150 mg bid after 1 week if tolerates. EMG/NCS can be done as out-patient. FU lab reports of [facility] OT/PT Rehab. HISTORY OF THE PRESENT ILLNESS: 66-y-old male patient with chronic pain in his left medial aspect of UE for several weeks. He stated he was evaluated at but no answer to his complaints of pain in his left UE. he described that his pain likes electric type sometimes. He stated he took Neurontin for 2 years for his UE pain but did not help his symptoms. He stated on 12/07 that Lyrica helped his sensory symptoms in his left UE in some degree, but he said he had vomiting and did not get medication down. Increased muscle strength in left UE since 12/07. PAST MEDICAL HISTORY: Please see above. PAST SURGERY HISTORY: S/P CABG Tonsillectomy ALLERGY: Reviewed MEDICATIONS: Refer to [facility] FAMILY HISTORY: Non contributory. SOCIAL HISTORY: Denies current smoking, drinking, and illicit drug use. He was a former smoker. REVIEW OF SYSTEMS: Constitutional: Malnutrition. Head: No traumatic brain or head injury. Skin: No edema, or rash. Ear: No infection, tinnitus. Eyes: No vision loss or color blindness. Nose: No bleeding or purulent discharges. Hearing: Hearing decrease. Neck: No injury. Cardiac: GA, CAD, s/p CABG, AFib, HTN, HLD. Pulmonary: COPD. GI: No GI ulcer, GI bleeding. Urinary/genital: UTI. Endocrinologic: No cousin face, craniofacial dysmorphism, polydactyly, goiter. Skeletomuscular: No muscular wasting. Neurological: see HP. Psychiatric: Denies drug use/abuse. Otherwise, not [id number] review of systems. PHYSICAL EXAMINATION: General appearance is in chronic distress. HEENT: Normocephalic and nontraumatic. Eyes, nose, ears, and throat are unremarkable. Neck is supple. No lymphadenopathy. No crepitus. Cardiovascular: S1, S2, regular rate and rhythm. Pulmonary: Clear to auscultation bilaterally. Abdomen: Bowel sounds are positive. Extremities: No rash, lesions, or edema. No restriction of range of motion NEUROLOGICAL EXAMINATION: Alert Oriented to time, place and person. PERRL. EOMI. CN: no focal findings. Muscle tone: within normal. Muscle strength: 4+ DTR: 2- Plantar reflex: Flexor response bilaterally Gait: Able to walk. Sensory exam: pain in left should joint and left medial aspect of UE. No acute cerebellar signs elicited. F-T-N test fine. Objective Objective Vital Signs Date Time Temp Pulse Resp B/P Pulse Ox O2 Delivery O2 Flow Rate FiO2 12/09/16 08:34 Nasal Cannula 3.0 12/09/16 08:33 91 125/72 12/09/16 07:22 91 12/09/16 07:00 97.8 18 97.8 Intake and Output 12/09/16 07:00 Intake Total 850 ml Output Total 1175 ml Balance -325 ml Intake Oral 850 ml Output Urine Total 1175 ml # Voids 1 Vitals Signs Vitals VS - Last 72 Hours, by Label Date Time Temp Pulse Resp B/P Pulse Ox O2 Delivery O2 Flow Rate FiO2 12/09/16 08:34 Nasal Cannula 3.0 12/09/16 08:33 91 125/72 12/09/16 08:33 91 125/72 12/09/16 08:31 Nasal Cannula 12/09/16 07:22 91 Room Air 2.0 12/09/16 07:00 97.8 91 18 125/72 98 Nasal Cannula 3.0 97.8 12/09/16 04:07 20 97 Nasal Cannula 3.0 12/09/16 03:07 20 97 Nasal Cannula 3.0 12/09/16 02:51 97.9 97 20 153/83 97 Nasal Cannula 3.0 97.9 12/09/16 00:55 20 98 Nasal Cannula 3.0 12/08/16 22:59 98.2 82 20 130/74 98 Nasal Cannula 3.0 98.2 12/08/16 22:48 20 96 Nasal Cannula 2.0 12/08/16 20:50 96 Room Air 2.0 12/08/16 20:49 20 98 Nasal Cannula 2.0 12/08/16 20:00 Nasal Cannula 2.0 12/08/16 19:10 98.1 77 18 120/64 98 Room Air 98.1 12/08/16 18:15 18 Nasal Cannula 2.0 12/08/16 15:00 97.8 87 20 101/66 94 Nasal Cannula 3.0 97.8 12/08/16 14:36 16 Nasal Cannula 2.0 12/08/16 11:00 97.8 70 20 120/67 93 Nasal Cannula 3.0 97.8 12/08/16 10:54 Room Air 2.0 12/08/16 10:06 16 Nasal Cannula 2.0 12/08/16 08:56 16 Nasal Cannula 2.0 12/08/16 08:55 70 125/70 12/08/16 08:55 70 125/70 12/08/16 08:00 Nasal Cannula 2.0 12/08/16 07:00 97.6 70 20 125/70 98 Nasal Cannula 3.0 97.6 Laboratory Laboratory Laboratory Tests Test 12/08/16 16:15 Erythrocyte Sedimentation Rate 28 (0-15) C-Reactive Protein, Quantitative 3.3mg/L (0-3.3) Medication Medications Current Medications Pregabalin (Lyrica) 100 mg BID PO Last administered on 12/09/16t 08:33; Start at 21:00 Comment Review of Relevant I have reviewed the following items meka (where applicable) has been applied. KATE TERRAZAS MD Dec 09, 2016 10:06
[2016-12-09] MEDS: ANTI-COAG MONITOR BY PHARMACY. MC PRN (10:22)
[2016-12-09 10:58] VITALS: BP 131/73
--- NOTE | 2016-12-09 12:08 | PDOC ---
SUBJECTIVE Subjective low back and right hip pain OBJECTIVE Objective 66 yo male C/O lopw back, right hip and LE pain and neck and bilat. shoulder pain Vital Signs Vital Signs Date Time Temp Pulse Resp B/P Pulse Ox O2 Delivery O2 Flow Rate FiO2 12/09/16 11:19 Nasal Cannula 2.0 12/09/16 10:58 98.0 86 18 131/73 98 Nasal Cannula 3.0 98.0 12/09/16 10:49 Nasal Cannula 3.0 12/09/16 08:34 Nasal Cannula 3.0 12/09/16 08:33 91 125/72 12/09/16 08:33 91 125/72 12/09/16 08:31 Nasal Cannula 12/09/16 08:00 Nasal Cannula 3.0 12/09/16 07:22 91 Room Air 2.0 12/09/16 07:00 97.8 91 18 125/72 98 Nasal Cannula 3.0 97.8 12/09/16 04:07 20 97 12/09/16 03:07 20 97 Nasal Cannula 3.0 12/09/16 02:51 97.9 97 20 153/83 97 Nasal Cannula 3.0 97.9 12/09/16 00:55 20 98 Nasal Cannula 3.0 12/08/16 22:59 98.2 82 20 130/74 98 Nasal Cannula 3.0 98.2 12/08/16 22:48 20 96 Nasal Cannula 2.0 12/08/16 20:50 96 Room Air 2.0 12/08/16 20:49 20 98 Nasal Cannula 2.0 12/08/16 20:00 Nasal Cannula 2.0 12/08/16 19:10 98.1 77 18 120/64 98 Room Air 98.1 12/08/16 18:15 18 Nasal Cannula 2.0 12/08/16 15:00 97.8 87 20 101/66 94 Nasal Cannula 3.0 97.8 12/08/16 14:36 16 Nasal Cannula 2.0 I & O Intake and Output 12/09/16 07:00 Intake Total 850 ml Output Total 1175 ml Balance -325 ml Intake Oral 850 ml Output Urine Total 1175 ml # Voids 1 PHYSICAL EXAM Physical Exam General appearance is in chronic distress. HEENT: Normocephalic and nontraumatic. Eyes, nose, ears, and throat are unremarkable. Neck is supple. No lymphadenopathy. No crepitus. Cardiovascular: S1, S2, regular rate and rhythm. Pulmonary: Clear to auscultation bilaterally. Abdomen: Bowel sounds are positive. Extremities: No rash, lesions, or edema. No restriction of rom Oriented to time, place and person. PERRL. EOMI. CN: no focal findings. Muscle tone: within normal. Muscle strength: 4+ DTR: 2+ Plantar reflex: Flexor response bilaterally Sensory exam: pain in left should joint and left medial aspect of UE, and right hip with external rom. ASSESSMENT/PLAN Assessment/Plan Discussed options with pt. He is refusing any interventional therapies. States that medications work best for him if taking 20mg oxycodone every 4 hrs. States he is allergic to Oxycontin. Discussed alternative medications and therapies, but he refuses. REC: Change oxycodone to 20mg q 6hrs PRN Problems: COMMENT Lab Laboratory Tests Test 12/08/16 16:15 Erythrocyte Sedimentation Rate 28 (0-15) C-Reactive Protein, Quantitative 3.3mg/L (0-3.3) ABBIE REGAN MD Dec 09, 2016 12:08
[2016-12-09 13:23] LABS: INR 1.3 (0.8-1.1); PROTHROMBIN TIME PATIENT 15.5 SEC (11.7-14.0)
--- NOTE | 2016-12-09 14:59 | RAD ---
EXAM: Fluoroscopically guided right hip aspiration. HISTORY: Right hip pain after arthroplasty. Aspiration is requested. COMPARISON: None. FINDINGS: The procedure along with intravenous and benefits were expanded the patient. An increased risk of bleeding was specifically discussed given anticoagulant therapy. He agreed to proceed. A timeout procedure was performed. The right hip joint was visualized fluoroscopically. The overlying skin was sterilely prepped and infiltrated with 1% lidocaine for local anesthesia. An 18-gauge spinal needle was advanced into the right hip joint. 6 mL clear tea-colored synovial fluid was aspirated. Instrumentation was withdrawn and a sterile dressing placed. There were no immediate complications. IMPRESSION: 1. Successful fluoroscopically guided right hip aspiration of 6 mL clear tea-colored synovial fluid.
[2016-12-09 15:00] VITALS: BP 129/70
--- NOTE | 2016-12-09 15:05 | PDOC ---
SERGO ABDI APRN 12/09/16 1505: ORTHO PROGRESS NOTES Subjective ESR was elevated. Pain in the right hip present for several years. No change in symptoms recently. Vitals Vital Signs Date Time Temp Pulse Resp B/P Pulse Ox O2 Delivery O2 Flow Rate FiO2 12/09/16 14:43 Nasal Cannula 3.0 12/09/16 10:58 98.0 86 18 131/73 98 98.0 Labs Laboratory Tests Test 12/08/16 16:15 12/09/16 13:00 Erythrocyte Sedimentation Rate 28 (0-15) C-Reactive Protein, Quantitative 3.3mg/L (0-3.3) Prothrombin Time 15.5SEC (11.7-14.0) Prothromb Time International Ratio 1.3 (0.8-1.1) Laboratory Tests Test 12/08/16 16:15 12/09/16 13:00 Erythrocyte Sedimentation Rate 28 (0-15) C-Reactive Protein, Quantitative 3.3mg/L (0-3.3) Prothrombin Time 15.5SEC (11.7-14.0) Prothromb Time International Ratio 1.3 (0.8-1.1) Notes Patient is awake and alert sitting up in bed. Breathing unlabored, no acute distress. Mood and affect appropriate. Normal range of motion at the hip. Neurovascular intact right lower extremity. Problems: (1) Right hip pain Assessment and Plan ESR was elevated. We would like to order a image guided right hip aspiration and send for culture and cell count. He can follow-up in our office in one week outpatient after aspiration is completed. SUNNY JORDAN II, MD 12/10/16 1252: SERGO ABDI APRN Dec 09, 2016 15:05 SUNNY JORDAN II, MD Dec 10, 2016 12:52
--- NOTE | 2016-12-09 16:29 | CONS ---
DATE OF CONSULTATION: 12/08/2016 REFERRING PROVIDER: Robyn Morales MD CONSULTING PROVIDER: Perry Lewis MD REASON FOR CONSULTATION: Right hip pain. CHIEF COMPLAINT: Right anterior thigh and medial thigh pain. HISTORY OF PRESENT ILLNESS: The patient is a very pleasant 66-year-old gentleman with a longstanding chronic pain issues at his low back. He had a hip fracture treated with hemiarthroplasty a couple of years ago and has had pain since then. He tells me he was walking 1 day shortly after surgery, and he felt stuck shift. He noted a lot of increased pain and that his right leg was shorter after that. He tells me that since then he has had more difficulty walking and feels pain that radiates from his groin down his medial and anterior thigh. He denies any other leg pain. He has a lot of chronic back pain as well as bilateral shoulder pain and loss of motion of his shoulder that has been chronic in nature. He currently denies any feelings of sickness. He tells me he was scheduled to have his teeth pulled at one point but was unable to do so. His hip fracture surgery was in [place], [place]. ALLERGIES: FISH-CONTAINING PRODUCTS, BEE POLLEN, OXYCODONE, PEANUTS, PROPOXYPHENE, TRAMADOL, and BEES. MEDICATIONS: Reviewed. Please see MRAD. PAST MEDICAL HISTORY: Significant for hypertension, hyperlipidemia, COPD, history of stroke, BPH, and history of GI bleeding. PAST SURGICAL HISTORY: CABG, right hip hemiarthroplasty, herniorrhaphy, and cataracts. FAMILY HISTORY: Heart disease. SOCIAL HISTORY: He recently quit smoking. He has a long smoking history. He was a former heavy drinker as well. REVIEW OF SYSTEMS: A 12-point review of systems negative except as per HPI. PHYSICAL EXAMINATION: GENERAL: The patient is alert and oriented. No acute distress. Mood and affect are appropriate. He has a coxalgic gait pattern. No edema in his lower extremities. Dorsalis pedis 1+ and symmetric. HEENT: Head is normocephalic and atraumatic. Extraocular muscles are intact. CARDIOVASCULAR: Regular rate and rhythm. No edema in his lower extremities. LUNGS: Respirations are unlabored with symmetric chest rise. ABDOMEN: Soft and nondistended. EXTREMITIES: Examination of bilateral lower extremities reveals his right lower extremity was approximately 4 cm shorter than his left. He has a posterolateral hip incision. He is tender along his adductor and quad muscle. He has increased pain at end range of motion. This is at his hip. No knee effusions. He can wiggle his toes. EHL and FHL are 5 out of 5. Dorsalis pedis 1+ and symmetric. IMAGING: X-rays are reviewed. I reviewed X-rays from October 2016 of his hip as well as from today of his hip and pelvis. Lumbar and C-spine MRIs were also reviewed. He has multiple degenerative changes with some evidence of foraminal narrowing at cervical and lumbar spine. He has degenerative disk disease and degenerative scoliosis in his low back. He has a right hip hemiarthroplasty that appears to have some lucency around the distal stem but is resting on the calcar. His right leg is much shorter than his left. IMPRESSION: 1. Pain after right hip hemiarthroplasty. 2. Degenerative joint disease of lumbar spine and cervical spine. 3. Chronic pain. PLAN: I did discuss with this gentleman that it is certainly possible that we may be able to make his leg and hip pain better with revision surgery. I did discuss this process with him. We will order inflammatory markers while he is inpatient. He will need to get his teeth addressed prior to any revision surgery. He was in agreeance with this plan and will follow up with me in clinic here in the next week or two. I did offer him injections for his rotator cuff tear arthropathy, but he declined telling me he has already had 17 in each shoulder, and they do not work anymore. PERRY LEWIS MD DR: JOEL/gilberto JOB#: [id number] / [id number] PONCHO
[2016-12-09 19:30] VITALS: BP 148/53
[2016-12-09] MEDS: ATORVASTATIN CALCIUM 10 MG TABLET. PO SCH (20:55)
[2016-12-09 21:47] LABS: BF CLARITY CLEAR; BF COLOR AMBER
[2016-12-09 22:48] VITALS: BP 105/56
[2016-12-10] MEDS: OXYCODONE IR 5 MG TABLET. PO PRN ×4 (01:03→14:16)
[2016-12-10 02:38] VITALS: BP 112/62
[2016-12-10] MEDS: PANTOPRAZOLE 40 MG TABLET. PO SCH (05:12)
[2016-12-10 07:00] VITALS: BP 146/83
[2016-12-10] MEDS: ALBUTEROL SULFATE 2.5 MG/3 ML NEBU. NEB PRN ×2 (08:41→15:28)
[2016-12-10] MEDS: GUAIFENESIN ER 600 MG TABLET.ER PO SCH (09:12)
[2016-12-10] MEDS: FUROSEMIDE 20 MG TABLET PO SCH (09:12)
[2016-12-10] MEDS: PREDNISONE 20 MG TABLET PO SCH (09:12)
[2016-12-10] MEDS: POTASSIUM CHLORIDE 20 MEQ TABLET.ER. PO SCH ×2 (09:12→14:17)
[2016-12-10] MEDS: PREGABALIN 50 MG CAPSULE PO SCH (09:12)
[2016-12-10] MEDS: FERROUS SULFATE 325 MG TABLET PO SCH (09:12)
[2016-12-10] MEDS: ASPIRIN 81 MG TAB.CHEW PO SCH (09:12)
[2016-12-10] MEDS: METOPROLOL SUCC 24HR ER 50 MG TAB.ER.24H. PO SCH (09:13)
[2016-12-10] MEDS: ASCORBIC ACID 500 MG TABLET PO SCH (09:13)
[2016-12-10] MEDS: LISINOPRIL 5 MG TABLET. PO SCH (09:13)
[2016-12-10] MEDS: OXYCODONE ER 10 MG TAB.ER.12H. PO SCH (09:13)
[2016-12-10] MEDS: APIXABAN 5 MG TABLET. PO SCH (09:13)
[2016-12-10] MEDS: CETIRIZINE HCL 10 MG TABLET PO SCH (09:13)
[2016-12-10 11:00] VITALS: BP 92/36
[2016-12-10] MEDS: ANTI-COAG MONITOR BY PHARMACY. MC PRN (11:08)
--- NOTE | 2016-12-10 12:21 | PN ---
DATE: 12/09/2016 SUBJECTIVE: The patient is sitting on the edge of the bed, comfortably in no apparent distress. He was seen by the Dr. Caceres and also Dr. Jono Araiza and he apparently discussed the available options for his pain management and the patient is refusing interventions or therapies, stated that medication work best for him. He is taking 20 oxycodone every 4 hours, states HE IS ALLERGIC TO OXYCONTIN. Discussed alternative medications, he refuses, recommend change oxycodone 20 mg q. 6 hours p.r.n., apparently he was seen also by Dr. Caceres and he is going for CT-guided aspiration of his hip joint and I will see him tomorrow and apparently might be able to discharge him home with home health as he apparently does not qualify for rehabilitation at the [facility] facility. PHYSICAL EXAMINATION: GENERAL: When I saw him today, he looked well and was clearly in no apparent respiratory distress, pale, but no jaundice, cyanosis or thyromegaly. No jugular venous distension. No limb edema. VITAL SIGNS: His heart rate was 86, blood pressure was 131/79, temperature was 98, respiratory rate was 18 and oxygen saturation was 98% on 3 liters of oxygen. The rest of clinical examination is unremarkable, has not really changed. LABORATORY DATA: Showed serum sodium 142, potassium 4.8, chloride 104, bicarbonate 32, anion gap of 6, BUN 30, creatinine 1.1, estimated GFR was 66 mL per minute. His white cell count was 11,600, hemoglobin 10, hematocrit 32, MCV was 91 and platelet count 267,000. The patient has multiple complaints of pain involving his neck, left arm and lower back and right hip joint. PLAN: He was seen by Dr. Jono Araiza and basically he wanted oxycodone 20 mg every 6 hours and he was seen by Dr. Caceres and he is going to have ultrasound-guided or CT-guided aspiration of his right hip joint. I will await the recommendation of Dr. Caceres and I might be able to discharge him home tomorrow with home health. LISSET NEWBERRY MD DR: JESSE/gilberto JOB#: [id number] / [id number]
[2016-12-10 15:00] VITALS: BP 146/85
--- NOTE | 2016-12-10 15:24 | PDOC ---
PROGRESS NOTES Assessment Assessment Left UE pain. 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 Generalized weakness. COPD Anemia CAD, s/p CABG CHF AFib HTN HLD Mild malnutrition RECOMMENDATIONS/PLAN: Continue Lyrica 100 mg bid, may increase to 150 mg bid after 1 week if tolerates. EMG/NCS can be done as out-patient. RPR negative per lab report. OT/PT Rehab. FU with PCP. FU with Neurology if wanted. HISTORY OF THE PRESENT ILLNESS: 66-y-old male patient with chronic pain in his left medial aspect of UE for several weeks. He stated he was evaluated at but no answer to his complaints of pain in his left UE. he described that his pain likes electric type sometimes. He stated he took Neurontin for 2 years for his UE pain but did not help his symptoms. He stated on 12/07 that Lyrica helped his sensory symptoms in his left UE in some degree, but he said he had vomiting and did not get medication down. Increased muscle strength and decreased pain in left UE since 12/07. PAST MEDICAL HISTORY: Please see above. PAST SURGERY HISTORY: S/P CABG Tonsillectomy ALLERGY: Reviewed MEDICATIONS: Refer to [facility] FAMILY HISTORY: Non contributory. SOCIAL HISTORY: Denies current smoking, drinking, and illicit drug use. He was a former smoker. REVIEW OF SYSTEMS: Constitutional: Malnutrition. Head: No traumatic brain or head injury. Skin: No edema, or rash. Ear: No infection, tinnitus. Eyes: No vision loss or color blindness. Nose: No bleeding or purulent discharges. Hearing: Hearing decrease. Neck: No injury. Cardiac: IN, CAD, s/p CABG, AFib, HTN, HLD. Pulmonary: COPD. GI: No GI ulcer, GI bleeding. Urinary/genital: UTI. Endocrinologic: No cousin face, craniofacial dysmorphism, polydactyly, goiter. Skeletomuscular: No muscular wasting. Neurological: see HP. Psychiatric: Denies drug use/abuse. Otherwise, not [id number] review of systems. PHYSICAL EXAMINATION: General appearance is in chronic distress. HEENT: Normocephalic and nontraumatic. Eyes, nose, ears, and throat are unremarkable. Neck is supple. No lymphadenopathy. No crepitus. Cardiovascular: S1, S2, regular rate and rhythm. Pulmonary: Clear to auscultation bilaterally. Abdomen: Bowel sounds are positive. Extremities: No rash, lesions, or edema. No restriction of range of motion NEUROLOGICAL EXAMINATION: Alert Oriented to time, place and person. PERRL. EOMI. CN: no focal findings. Muscle tone: within normal. Muscle strength: 4+ DTR: 2- Plantar reflex: Flexor response bilaterally Gait: Able to walk. Sensory exam: pain in left should joint and left medial aspect of UE, but significantly improved. No acute cerebellar signs elicited. F-T-N test fine. Objective Objective Vital Signs Date Time Temp Pulse Resp B/P Pulse Ox O2 Delivery O2 Flow Rate FiO2 12/10/16 14:17 Nasal Cannula 3.0 12/10/16 11:00 97.8 79 20 92/36 96 97.8 Intake and Output 12/10/16 07:00 Output Total 900 ml Balance -900 ml Output Urine Total 900 ml # Voids 1 # Bowel Movements 2 Vitals Signs Vitals VS - Last 72 Hours, by Label Date Time Temp Pulse Resp B/P Pulse Ox O2 Delivery O2 Flow Rate FiO2 12/10/16 14:17 Nasal Cannula 3.0 12/10/16 14:16 Nasal Cannula 3.0 12/10/16 11:00 97.8 79 20 92/36 96 Nasal Cannula 3.0 97.8 12/10/16 11:00 Nasal Cannula 3.0 12/10/16 09:13 Nasal Cannula 3.0 12/10/16 09:13 102 146/83 12/10/16 09:13 102 146/83 12/10/16 09:12 Nasal Cannula 3.0 12/10/16 08:41 97 Nasal Cannula 2.0 12/10/16 08:00 Nasal Cannula 3.0 12/10/16 07:00 102 20 146/83 87 Nasal Cannula 3.0 12/10/16 05:12 Nasal Cannula 12/10/16 02:38 97.5 70 18 112/62 99 Nasal Cannula 3.0 97.5 12/10/16 01:03 Nasal Cannula 12/09/16 22:48 97.8 72 18 105/56 99 Nasal Cannula 3.0 97.8 12/09/16 20:55 Nasal Cannula 12/09/16 20:55 Nasal Cannula 12/09/16 20:46 99 Nasal Cannula 2.0 12/09/16 20:10 Nasal Cannula 3.0 12/09/16 19:30 97.7 62 18 148/53 94 Room Air 97.7 12/09/16 16:53 Nasal Cannula 3.0 12/09/16 15:38 Nasal Cannula 2.0 12/09/16 15:00 98.1 85 18 129/70 97 Nasal Cannula 3.0 98.1 12/09/16 12:17 Nasal Cannula 3.0 12/09/16 11:19 Nasal Cannula 2.0 12/09/16 10:58 98.0 86 18 131/73 98 Nasal Cannula 3.0 98.0 12/09/16 08:34 Nasal Cannula 3.0 12/09/16 08:33 91 125/72 12/09/16 08:33 91 125/72 12/09/16 08:31 Nasal Cannula 12/09/16 08:00 Nasal Cannula 3.0 12/09/16 07:22 91 Room Air 2.0 12/09/16 07:00 97.8 91 18 125/72 98 Nasal Cannula 3.0 97.8 Comment Review of Relevant I have reviewed the following items meka (where applicable) has been applied. KATE TERRAZAS MD Dec 10, 2016 15:24
--- NOTE | 2016-12-10 23:30 | DS ---
DATE OF DISCHARGE: 12/10/2016 HOSPITAL COURSE: The patient is a 66-year-old male patient , whom I have seen initially at [facility] where he came complaining of pain in his neck, low back pain and right hip pain. He had an MRI of his lumbar spine and also MRI of the cervical spine showed that there is multilevel variable degenerative disk disease throughout lumbar spine. There is multilevel spondylosis with multilevel mild lateral recess stenosis as stated. There is also neural foraminal compromise as stated, greater on the left at L4-L5, L5-S1 and on the right at L3-L4. There is moderate lumbar levoscoliosis. There is abdominal aortic aneurysm ____ in the order of 5.3 cm in axial plane. Cervical spine also showed that he has spinal stenosis in the order of 5-6 mm at C3-C4, C4-C5, minimally at C5-C6, C6-C7 with right greater degree of right lateral recess stenosis. He was seen in consultation by the neurologist, neurosurgeon, pain management and also orthopedic surgeon. He refused all intervention. He was seen by Dr. Lewis for pain in his right hip joints after hip hemiarthroplasty and he underwent successful fluoroscopically-guided right hip aspiration of 60 mL clear tea-colored synovial fluid and as he remained stable, a decision was made to discharge him home to follow with Dr. Lewis as well as Dr. Jono Araiza. He refused any intervention therapies. PHYSICAL EXAMINATION: GENERAL: When I saw him today, he looked well and was clearly in no apparent respiratory distress, pale. No jaundice, cyanosis or thyromegaly. No jugular venous distension. No limb edema. VITAL SIGNS: His heart rate was 79, blood pressure was 110/60, temperature was 97.8, respiratory rate was 20 and oxygen saturation was 96% on 3 liters of oxygen. HEAD, EYES, EARS, NOSE AND THROAT: Normocephalic, atraumatic. NECK: Supple. HEART: Showed normal first and second heart sounds. No gallop, rub or murmur. CHEST: Clear to auscultation. No crepitation or rhonchi. ABDOMEN: Distended, soft, nontender. No guarding or rigidity. No organomegaly. Hernial orifices intact. Bowel sounds normal. LABORATORY DATA: His most recent lab work showed a serum sodium of 142, potassium 4.8, chloride 104, bicarbonate 32, anion gap of 6, BUN 30, creatinine 1.1, estimated GFR was 56 mL per minute. His hemoglobin A1c was 4.6. His calcium was 9.7. ____. Total bilirubin, AST, ALT, alkaline phosphatase were normal. Total protein was 7.2, albumin was 3.5. His white cell count was 11,600, hemoglobin 10, hematocrit 32, MCV 91 and platelet count 267,000. DISCHARGE MEDICATIONS: The patient was discharged home to continue on all his medications with the added oxycodone and OxyContin as well as pregabalin at 100 mg twice a day. FINAL DISCHARGE DIAGNOSES: Severe cervical and lumbar spondylosis with cervical spinal stenosis. The patient will follow with Dr. Lewis in 1 week as an outpatient after the aspirate was sent for culture and sensitivity. He will follow also with Dr. Jono Araiza. He has multiple other medical problems including hypertension, hyperlipidemia, right middle cerebral artery territory infarct with left-sided hemiplegia, chronic obstructive pulmonary disease, benign prostatic hypertrophy, generalized osteoarthritis. The patient will be discharged home with home health and should follow with his primary care physician at [facility]. LISSET NEWBERRY MD DR: JESSE/gilberto JOB#: [id number] / [id number]
== END 2016-12-10 17:15 | disposition home health service (06) | DRG 551 ==
LOC: 4 NORTH 16:55
PROVIDERS: ADMIT Internal Medicine; ATTEND Internal Medicine
PROC: 0S9 Lower Joints, Drainage (ICD-10-PCS; principal; 2016-12-09)
DX: M48.02 Spinal stenosis, cervical region (principal); I50.23 Acute on chronic systolic (congestive) heart failure; M48.56XA Collapsed vertebra, not elsewhere classified, lumbar region, initial encounter for fracture; E44.1 Mild protein-calorie malnutrition; Z68.1 Body mass index [BMI] 19.9 or less, adult; G81.94 Hemiplegia, unspecified affecting left nondominant side; G95.89 Other specified diseases of spinal cord; G56.22 Lesion of ulnar nerve, left upper limb; E78.5 Hyperlipidemia, unspecified; G89.29 Other chronic pain; I25.10 Atherosclerotic heart disease of native coronary artery without angina pectoris; I48.0 Paroxysmal atrial fibrillation; I71.4 Abdominal aortic aneurysm, without rupture; J44.9 Chronic obstructive pulmonary disease, unspecified; I11.0 Hypertensive heart disease with heart failure; M15.9 Polyosteoarthritis, unspecified; Z96.641 Presence of right artificial hip joint; M41.9 Scoliosis, unspecified; M47.816 Spondylosis without myelopathy or radiculopathy, lumbar region; N40.0 Benign prostatic hyperplasia without lower urinary tract symptoms; D64.9 Anemia, unspecified; Z88.8 Allergy status to other drugs, medicaments and biological substances; Z91.038 Other insect allergy status; Z91.010 Allergy to peanuts; Z91.013 Allergy to seafood; Z82.49 Family history of ischemic heart disease and other diseases of the circulatory system; Z86.73 Personal history of transient ischemic attack (TIA), and cerebral infarction without residual deficits; Z87.891 Personal history of nicotine dependence; Z95.1 Presence of aortocoronary bypass graft
CPT/HCPCS: 36415; 72141; 72158; 73521; 77002; 80053; 82550; 83036; 84425; 84439; 84443; 84481; 85007; 85027; 85610; 85651; 86140; 86593; 86703; 87071; 87075; 87205; 87641; 89050; 94250; 94640; 94760; G0481; J2060; J7512; 97116; 97530; A9585

== ENCOUNTER 2016-12-15 23:06 | Inpatient (IN) | payer MEDICARE ==
[~2016-12-15] VITALS: Ht 175.3 cm; Wt 63.5 kg
[~2016-12-15 23:06] MED LIST changes: +ALBU2.5V5 NEB; +GUAI600T28 PO; +POTA20TA82 PO; +PRED20TA PO
--- NOTE | 2016-12-15 23:38 | PHYS DOC ---
Past Medical History Past Medical History: A-Fib, COPD, High Cholesterol, Heart Disease, Hypertension, [place], Renal Disease Past Surgical History: Coronary Bypass Surgery, Tonsillectomy, Other Additional Past Surgical Histo: R KNEE SX Alcohol Use: None Drug Use: None Adult General Chief Complaint Chief Complaint: COUGH HPI HPI Patient is a 66 year old male who presents complaining of hemoptysis. Patient reports since about noon today he has been having productive cough, with blood streaked in the phlegm. He reports cough is his baseline, and is no worse than it usually is. He is having pain had an appointment in his right lateral chest. He denies any other chest pain. Denies any shortness of breath or fever. He does take a blood thinner (chart review shows eliquis on med list). He denies any prior similar episodes. He has not taken anything at home for symptoms. He wears 2-3 L of oxygen per nasal cannula at baseline. Review of Systems Review of Systems Constitutional: Denies fever or chills Eyes: Denies change in visual acuity or eye pain HENT: Denies nasal congestion or sore throat Respiratory: Cough, hemoptysis. Denies shortness of breath Cardiovascular: R lateral chest pain GI: Denies abdominal pain, nausea, vomiting, bloody stools or diarrhea : Denies dysuria or hematuria Musculoskeletal: Denies back pain or joint pain Integument: Denies rash or skin lesions Neurologic: Denies headache, focal weakness or sensory changes Current Medications Current Medications Current Medications Medications (Trade) Dose Ordered Sig/Vignesh Start Time Stop Time Status Last Admin Dose Admin Acetaminophen (Tylenol) 1,000 mg 1X ONCE 12/15/16 23:45 12/15/16 23:46 DC 12/15/16 00:14 1,000 MG Allergies Allergies Allergies Coded Allergies Type Severity Reaction Last Updated Verified oxycodone Allergy Severe Anaphylaxis, takes OXYCONTIN at home 12/07/16 Yes peanut Allergy Severe 11/28/16 Yes venom-honey bee Allergy Severe 11/28/16 Yes Fish Containing Products Allergy Intermediate 11/28/16 Yes bee pollen Allergy Intermediate 11/28/16 Yes propoxyphene Allergy Intermediate 11/28/16 Yes tramadol Allergy Intermediate 11/27/16 Yes I S O L A T I O N *CONTACT* Allergy Unknown 11/26/16 Yes Physical Exam Physical Exam Constitutional: Well developed, well nourished, no acute distress, non-toxic appearance HENT: Normocephalic, atraumatic, bilateral external ears normal Eyes: EOMI, conjunctiva normal, no discharge Neck: Normal range of motion, no stridor Cardiovascular: Heart rate normal, regular rhythm, no murmur Lungs & Thorax: Diminished breath sounds in b/l bases Abdomen: Bowel sounds normal, soft, non-distended, no TTP Skin: Warm, dry, no erythema, no rash; hyperpigmentation b/l hands Extremities: BLE trace edema. No obvious deformity Neurologic: Alert and oriented X 3, no gross deficits noted Psychologic: Affect normal, judgement normal, mood normal Current Patient Data Vital Signs Vital Signs Date Time Temp Pulse Resp B/P Pulse Ox O2 Delivery O2 Flow Rate FiO2 12/16/16 00:30 78 24 100 Nasal Cannula 3 12/16/16 00:00 138/55 12/15/16 23:20 98.7 98.7 Lab Values Laboratory Tests Test 12/15/16 23:13 12/16/16 00:14 White Blood Count 9.7x10^3/uL (4.0-11.0) Red Blood Count 3.14x10^6/uL (4.30-5.70) L Hemoglobin 9.2g/dL (13.0-17.5) L Hematocrit 28.2% (39.0-53.0) L Mean Corpuscular Volume 90fL (79-100) Mean Corpuscular Hemoglobin 29pg (25-35) Mean Corpuscular Hemoglobin Concent 33g/dL (31-37) Red Cell Distribution Width 17.2% (11.5-14.5) H Platelet Count 180x10^3/uL (140-400) Neutrophils (%) (Auto) 81% (31-73) H Lymphocytes (%) (Auto) 8% (24-48) L Monocytes (%) (Auto) 10% (0-9) H Eosinophils (%) (Auto) 1% (0-3) Basophils (%) (Auto) 0% (0-3) Neutrophils # (Auto) 7.8x10^3uL (1.8-7.7) H Lymphocytes # (Auto) 0.8x10^3/uL (1.0-4.8) L Monocytes # (Auto) 0.9x10^3/uL (0.0-1.1) Eosinophils # (Auto) 0.1x10^3/uL (0.0-0.7) Basophils # (Auto) 0.0x10^3/uL (0.0-0.2) Sodium Level 145mmol/L (136-145) Potassium Level 4.1mmol/L (3.5-5.1) Chloride Level 106mmol/L (98-107) Carbon Dioxide Level 30mmol/L (21-32) Anion Gap 9 (6-14) Blood Urea Nitrogen 65mg/dL (8-26) H Creatinine 2.0mg/dL (0.7-1.3) H Estimated GFR (Cockcroft-Gault) 33.4 Glucose Level 126mg/dL (70-99) H Calcium Level 9.0mg/dL (8.5-10.1) Total Bilirubin 0.4mg/dL (0.2-1.0) Direct Bilirubin 0.1mg/dL (0.0-0.2) Aspartate Amino Transferase (AST) 15U/L (15-37) Alanine Aminotransferase (ALT) 16U/L (16-63) Alkaline Phosphatase 82U/L (46-116) Troponin I Quantitative 0.030ng/mL (0.000-0.055) TV-Jrg-U-Type Natriuretic Peptide 1153pg/mL (0-124) H Total Protein 6.4g/dL (6.4-8.2) Albumin 2.9g/dL (3.4-5.0) L Prothrombin Time 18.2SEC (11.7-14.0) H Prothrombin Time INR 1.6 (0.8-1.1) H PTT 36SEC (24-38) D-Dimer (Lazara) 1.26ug/mlFEU (0.00-0.50) H Laboratory Tests 12/15/16 23:13 Laboratory Tests 12/15/16 23:13 EKG EKG EKG (my read): sinus rhythm, rate 81, LAD, QTc 489, no acute ST/T changes Radiology/Procedures Radiology/Procedures CXR (my read): Circular opacity R lower lung field Course & Med Decision Making Course & Med Decision Making Pertinent Labs and Imaging studies reviewed. (See chart for details) Patient is 58-year-old male who presents with hemoptysis. Also having focal pain and bilateral chest. Will obtain chest x-ray, EKG, labs to evaluate. Will start with dose of acetaminophen for pain and aches. EKG and imaging results as above. Labs notable for baseline anemia, elevated d-dimer, elevated creatinine, elevated BNP. Will order VQ scan for the morning as his renal function would preclude a CTA chest. He is on Eliquis, so do not believe we need to obtain emergent imaging to screen for PE. Small fluid bolus ordered for renal function even though he has elevated BNP as he does not have significant pulmonary edema on chest x-ray. Discussed results with patient. Will admit under the care of Dr. Troy for further evaluation and treatment. Dragon Disclaimer Dragon Disclaimer This electronic medical record was generated, in whole or in part, using a voice recognition dictation system. Departure Departure Impression: Primary Impression: Hemoptysis Additional Impression: Right-sided chest pain Disposition: ADMITTED INPATIENT Admitting Physician: Maira Troy Condition: GUARDED Referrals: NO PCP (PCP) Problem Qualifiers RICKY VILLANUEVA MD Dec 15, 2016 23:38
[2016-12-15 23:44] LABS: BASO % 0 % (0-3); EOS % 1 % (0-3); HEMATOCRIT 28.2 % (39.0-53.0); HEMOGLOBIN 9.2 g/dL (13.0-17.5); LYMPH # 0.8 x10^3/uL (1.0-4.8); LYMPH % 8 % (24-48); MEAN CORPUSCULAR HEMOGLOBIN 29 pg (25-35); MEAN CORPUSCULAR HGB CONC 33 g/dL (31-37); MEAN CORPUSCULAR VOLUME 90 fL (79-100); MONO % 10 % (0-9); NEUT % 81 % (31-73); PLATELET COUNT 180 x10^3/uL (140-400); RED BLOOD COUNT 3.14 x10^6/uL (4.30-5.70); RED CELL DISTRIBUTION WIDTH 17.2 % (11.5-14.5); WHITE BLOOD COUNT 9.7 x10^3/uL (4.0-11.0)
[2016-12-15] MEDS ORDERED: ACETAMINOPHEN 500 MG TABLET PO ONE (23:45)
[2016-12-15 23:55] LABS: GFR 33.4; POTASSIUM 4.1 mmol/L (3.5-5.1)
[2016-12-16] LABS: ALBUMIN 2.9 g/dL (3.4-5.0); DIRECT BILIRUBIN 0.1 mg/dL (0.0-0.2); TOTAL BILIRUBIN 0.4 mg/dL (0.2-1.0); TOTAL PROTEIN 6.4 g/dL (6.4-8.2)
[2016-12-16 00:36] LABS: INR 1.6 (0.8-1.1); PROTHROMBIN TIME PATIENT 18.2 SEC (11.7-14.0)
[2016-12-16] MEDS ORDERED: IV NORMAL SALINE 500ML BAG 500 ML IV ONE (01:15)
[2016-12-16] MEDS ORDERED: ACETAMINOPHEN 325 MG TABLET. PO PRN (01:15)
[2016-12-16] MEDS ORDERED: ONDANSETRON PF 4 MG/2 ML VIAL. IV PRN (01:15)
[2016-12-16 03:48] VITALS: BP 110/49
--- NOTE | 2016-12-16 06:17 | EKG ---
[facility] [address] [place] [address] Test Date: 2016-12-15 Test Time: 23:15:42 Pat Name: ANGEL LOTT Department: Room: 4 1 Gender: M Senior Loan Officer: : 1950 Requested By: RICKY VILLANUEVA Order Number: [id number] Reading MD: Silvana De Anda Measurements Intervals [place] Rate: 81 P: 84 IA: 178 QRS: -37 QRSD: 110 T: 82 QT: 416 QTc: 489 Interpretive Statements SINUS RHYTHM LEFT ATRIAL ABNORMALITY ABNORMAL LEFT AXIS DEVIATION LEFT VENTRICULAR HYPERTROPHY T ABNORMALITY IN HIGH LATERAL LEADS Electronically Signed On 12-18-2016 10:47:25 CDT by Silvana De Anda
[2016-12-16 07:10] VITALS: BP 117/53
--- NOTE | 2016-12-16 07:25 | RAD ---
Indication: Hemoptysis. Technique: Two-view chest radiograph was obtained. Comparison is from August 13, 2015. Findings: There is a potential rounded opacity projecting in the right lung base medially overlying the heart on the frontal projection, no definite correlate on the lateral view. This is a change from prior. Otherwise, the lungs are clear. There is no pleural effusion. The lungs are hyperinflated with flattening of the diaphragm. The heart is not enlarged. There is no heart failure. Median sternotomy wires are noted. Impression: Potential rounded opacity in the right lung base medially. This could represent an area of pneumonia. Follow-up to exclude neoplasm is required given the masslike appearance. Alternatively, consider CT chest with contrast.
[2016-12-16] MEDS: MORPHINE SULFATE 2 MG/ML DISP.SYRIN. IV PRN ×4 (08:15→20:07)
--- NOTE | 2016-12-16 09:32 | PDOC1 ---
History and Physical Past Medical History Past Medical History Past Medical History: A-Fib, COPD, High Cholesterol, Heart Disease, Hypertension, [place], Renal Disease Past Surgical History: Coronary Bypass Surgery, Tonsillectomy, Other Cardiovascular: AFIB, CAD, CHF, HTN, Hyperlipidemia, Other (aaa 5.3 cm) Pulmonary: COPD Past Surgical History Past Surgical History: Other Family History Family History FH: His father at age of 65, because of myocardial infarction. Family History: No Significant Social History Smoke: 1 pack per day ALCOHOL: none Drugs: None Current Problem List Problem List Problems Medical Problems: (1) Hemoptysis Status: Acute (2) Right-sided chest pain Status: Acute Current Medications Current Medications Current Medications Medications (Trade) Dose Ordered Sig/Vignesh Start Time Stop Time Status Last Admin Dose Admin Acetaminophen (Tylenol) 1,000 mg 1X ONCE 12/15/16 23:45 12/15/16 23:46 DC 12/15/16 00:14 1,000 MG Acetaminophen 650 mg 650 mg PRN Q4HRS PRN 12/16/16 01:15 12/17/16 01:14 Morphine Sulfate 2 mg PRN Q2HR PRN 12/16/16 01:15 12/17/16 01:14 Ondansetron HCl (Zofran) 4 mg PRN Q8HRS PRN 12/16/16 01:15 12/16/16 02:10 DC Sodium Chloride (Iv Sodium Chloride 0.9% 500ml Bag) 500 ml @ 500 mls/hr 1X ONCE 12/16/16 01:15 12/16/16 02:14 DC 12/16/16 02:52 500 MLS/HR Allergies Allergies Allergies Coded Allergies Type Severity Reaction Last Updated Verified oxycodone Allergy Severe Anaphylaxis, takes OXYCONTIN at home 12/07/16 Yes peanut Allergy Severe 11/28/16 Yes venom-honey bee Allergy Severe 11/28/16 Yes Fish Containing Products Allergy Intermediate 11/28/16 Yes bee pollen Allergy Intermediate 11/28/16 Yes propoxyphene Allergy Intermediate 11/28/16 Yes tramadol Allergy Intermediate 11/27/16 Yes I S O L A T I O N *CONTACT* Allergy Unknown 11/26/16 Yes ROS Review of System CONSTITUTIONAL: No fever or chills EYES: No recent changes SKIN: left great toe blood blister CARDIOVASCULAR: No chest pain, syncope, palpitations, or edema RESPIRATORY: cough with hemoptysis GASTROINTESTINAL: No nausea, vomiting or abdominal pain NEUROLOGICAL: No headaches or weakness ENDOCRINE: No cold or heat intolerance GENITOURINARY: No urgency or frequency of urination MUSCULOSKELETAL: No back pain or joint pain LYMPHATICS: No enlarged lymph nodes PSYCHIATRIC: No anxiety or depression Physical Exam Physical Exam GEN.: No apparent distress. Alert and oriented times 3 HEENT: Head is normocephalic, atraumatic NECK: Supple. NO jvd LUNGS: Clear to auscultation. decreased BS bilateral HEART: RRR, S1, S2 present. Peripheral pulses intact ABDOMEN: Soft, nontender. Positive bowel sounds. EXTREMITIES: Without any cyanosis. NEUROLOGIC: Normal speech, normal tone PSYCHIATRIC: Normal affect, normal mood. SKIN: left great toe healing blister Vitals Vitals Vital Signs Date Time Temp Pulse Resp B/P Pulse Ox O2 Delivery O2 Flow Rate FiO2 12/16/16 08:00 Nasal Cannula 3.0 12/16/16 07:10 97.8 66 20 117/53 94 97.8 Labs Labs Laboratory Tests Test 12/15/16 23:13 12/16/16 00:14 12/16/16 06:55 White Blood Count 9.7x10^3/uL (4.0-11.0) Red Blood Count 3.14x10^6/uL (4.30-5.70) Hemoglobin 9.2g/dL (13.0-17.5) Hematocrit 28.2% (39.0-53.0) Mean Corpuscular Volume 90fL (79-100) Mean Corpuscular Hemoglobin 29pg (25-35) Mean Corpuscular Hemoglobin Concent 33g/dL (31-37) Red Cell Distribution Width 17.2% (11.5-14.5) Platelet Count 180x10^3/uL (140-400) Neutrophils (%) (Auto) 81% (31-73) Lymphocytes (%) (Auto) 8% (24-48) Monocytes (%) (Auto) 10% (0-9) Eosinophils (%) (Auto) 1% (0-3) Basophils (%) (Auto) 0% (0-3) Neutrophils # (Auto) 7.8x10^3uL (1.8-7.7) Lymphocytes # (Auto) 0.8x10^3/uL (1.0-4.8) Monocytes # (Auto) 0.9x10^3/uL (0.0-1.1) Eosinophils # (Auto) 0.1x10^3/uL (0.0-0.7) Basophils # (Auto) 0.0x10^3/uL (0.0-0.2) Sodium Level 145mmol/L (136-145) Potassium Level 4.1mmol/L (3.5-5.1) Chloride Level 106mmol/L (98-107) Carbon Dioxide Level 30mmol/L (21-32) Anion Gap 9 (6-14) Blood Urea Nitrogen 65mg/dL (8-26) Creatinine 2.0mg/dL (0.7-1.3) Estimated GFR (Cockcroft-Gault) 33.4 Glucose Level 126mg/dL (70-99) Calcium Level 9.0mg/dL (8.5-10.1) Total Bilirubin 0.4mg/dL (0.2-1.0) Direct Bilirubin 0.1mg/dL (0.0-0.2) Aspartate Amino Transf (AST/SGOT) 15U/L (15-37) Alanine Aminotransferase (ALT/SGPT) 16U/L (16-63) Alkaline Phosphatase 82U/L (46-116) Troponin I Quantitative 0.030ng/mL (0.000-0.055) 0.022ng/mL (0.000-0.055) ZM-Jlk-B-Type Natriuretic Peptide 1153pg/mL (0-124) Total Protein 6.4g/dL (6.4-8.2) Albumin 2.9g/dL (3.4-5.0) Prothrombin Time 18.2SEC (11.7-14.0) Prothromb Time International Ratio 1.6 (0.8-1.1) Activated Partial Thromboplast Time 36SEC (24-38) D-Dimer (Lazara) 1.26ug/mlFEU (0.00-0.50) Laboratory Tests Test 12/15/16 23:13 12/16/16 00:14 12/16/16 06:55 White Blood Count 9.7x10^3/uL (4.0-11.0) Red Blood Count 3.14x10^6/uL (4.30-5.70) Hemoglobin 9.2g/dL (13.0-17.5) Hematocrit 28.2% (39.0-53.0) Mean Corpuscular Volume 90fL (79-100) Mean Corpuscular Hemoglobin 29pg (25-35) Mean Corpuscular Hemoglobin Concent 33g/dL (31-37) Red Cell Distribution Width 17.2% (11.5-14.5) Platelet Count 180x10^3/uL (140-400) Neutrophils (%) (Auto) 81% (31-73) Lymphocytes (%) (Auto) 8% (24-48) Monocytes (%) (Auto) 10% (0-9) Eosinophils (%) (Auto) 1% (0-3) Basophils (%) (Auto) 0% (0-3) Neutrophils # (Auto) 7.8x10^3uL (1.8-7.7) Lymphocytes # (Auto) 0.8x10^3/uL (1.0-4.8) Monocytes # (Auto) 0.9x10^3/uL (0.0-1.1) Eosinophils # (Auto) 0.1x10^3/uL (0.0-0.7) Basophils # (Auto) 0.0x10^3/uL (0.0-0.2) Sodium Level 145mmol/L (136-145) Potassium Level 4.1mmol/L (3.5-5.1) Chloride Level 106mmol/L (98-107) Carbon Dioxide Level 30mmol/L (21-32) Anion Gap 9 (6-14) Blood Urea Nitrogen 65mg/dL (8-26) Creatinine 2.0mg/dL (0.7-1.3) Estimated GFR (Cockcroft-Gault) 33.4 Glucose Level 126mg/dL (70-99) Calcium Level 9.0mg/dL (8.5-10.1) Total Bilirubin 0.4mg/dL (0.2-1.0) Direct Bilirubin 0.1mg/dL (0.0-0.2) Aspartate Amino Transf (AST/SGOT) 15U/L (15-37) Alanine Aminotransferase (ALT/SGPT) 16U/L (16-63) Alkaline Phosphatase 82U/L (46-116) Troponin I Quantitative 0.030ng/mL (0.000-0.055) 0.022ng/mL (0.000-0.055) OZ-Xgt-X-Type Natriuretic Peptide 1153pg/mL (0-124) Total Protein 6.4g/dL (6.4-8.2) Albumin 2.9g/dL (3.4-5.0) Prothrombin Time 18.2SEC (11.7-14.0) Prothromb Time International Ratio 1.6 (0.8-1.1) Activated Partial Thromboplast Time 36SEC (24-38) D-Dimer (Lazara) 1.26ug/mlFEU (0.00-0.50) VTE Prophylaxis Ordered VTE Prophylaxis Devices: Contraindicated VTE Pharmacological Prophylaxi: Contraindicated SELENE MARTÍNEZ MD Dec 16, 2016 09:32
[2016-12-16] MEDS ORDERED: ALBUTEROL SULFATE 2.5 MG/3 ML NEBU. NEB PRN (10:15)
[2016-12-16] MEDS ORDERED: BENZONATATE 100 MG CAPSULE. PO PRN (10:15)
[2016-12-16] MEDS ORDERED: SENNOSIDES/DOCUSATE 8.6/50MG TABLET. PO PRN (10:15)
[2016-12-16 10:50] VITALS: BP 116/48
--- NOTE | 2016-12-16 11:09 | HP ---
ADMIT DATE: 12/16/2016 CHIEF COMPLAINT: Hemoptysis. HISTORY OF PRESENT ILLNESS: A 66-year-old male patient with several comorbid conditions such as COPD, chronic respiratory failure, hypertension, and atrial fibrillation, on oral anticoagulation, who presented to the ER with complaints of hemoptysis for nearly 1-day duration. The patient was here in the hospital nearly 2 weeks ago for back pain and at that time, he was evaluated by subspecialist of Orthopedics and was sent home in stable condition with outpatient followup. However, he presented back to the hospital with hemoptysis. He still has a cough which has been chronic, nothing changed, but he noted to have thin streaks of blood. Currently, the patient is on Eliquis for chronic atrial fibrillation. He denies any trauma or any new changes. He has been a smoker for a long time. He is currently smoking. PAST MEDICAL HISTORY, REVIEW OF SYSTEMS, AND PHYSICAL EXAMINATION: Please see my electronic H and P. LABORATORY DATA: Hemoglobin is 9.2. Previous hemoglobin was between 9 and 10, MCV is 90, and platelets is 180, and hematocrit is 28.2. Chemistry: Sodium is 145, potassium 4.1, chloride 106, BUN is 65, and creatinine is 2.0. Troponin is 0.22. Albumin is 2.9. Coagulation, D-dimer 1.26, and INR is 1.6. IMAGING STUDIES: Chest x-ray, potential round opacity in the right lung base medially. This could represent an area of pneumonia. Followup to exclude neoplasm is required, mass-like appearance. CT of chest with contrast is recommended. ASSESSMENT: 1. Hemoptysis, present on admission, round opacity in the right lung base. 2. Chronic atrial fibrillation, on oral anticoagulation; chronic obstructive pulmonary disease, and chronic respiratory failure. 3. Hypertension. 4. Coronary artery disease. 5. Chronic back pain. 6. MELLISSA PLAN: 1. I will hold the patient's blood thinner at this time due to bleeding risk. 2. Also hold Lasix at this time and monitor creatinine. 3. He needs a CT of the chest with contrast; however, at this time due to renal functions, I will hold it off and consult Pulmonology. 4. The patient's pain has been not controlled, and I will resume his home medications first. IV morphine 2 mg q 2hrs prn If not, I will consult Dr. Araiza. 5. Monitor renal functions in the a.m. 6. Old records reviewed. Previous creatinine is around 1.1. At this time, his creatinine is 2.0. 7. Monitor hemoglobin closely. No active bleeding noted. 8. Prognosis is guarded. SELENE MARTÍNEZ MD DR: JENNY/gilberto JOB#: [id number] / [id number] PONCHO
[2016-12-16] MEDS: OXYCODONE IR 5 MG TABLET. PO PRN ×2 (12:10→23:02)
[2016-12-16] MEDS: SPIRONOLACTONE 25 MG TABLET PO SCH (13:34)
[2016-12-16] MEDS: PREDNISONE 20 MG TABLET PO SCH ×2 (13:35→20:08)
[2016-12-16] MEDS: PANTOPRAZOLE 40 MG TABLET. PO SCH ×2 (13:35→20:08)
[2016-12-16] MEDS: GUAIFENESIN ER 600 MG TABLET.ER PO SCH ×2 (13:36→20:08)
[2016-12-16] MEDS: ASPIRIN 81 MG TAB.CHEW PO SCH (13:36)
[2016-12-16] MEDS: CETIRIZINE HCL 10 MG TABLET PO SCH (13:36)
[2016-12-16] MEDS: buPROPion 100 MG TABLET PO SCH ×2 (13:37→20:08)
[2016-12-16] MEDS: METOPROLOL SUCC 24HR ER 50 MG TAB.ER.24H. PO SCH (13:38)
--- NOTE | 2016-12-16 14:26 | RAD ---
Indication: Hemoptysis, short of air, COPD. Technique: Ventilation imaging utilized 9.8 mCi xenon-133 inhaled. Perfusion imaging utilized 5.5 mCi technetium 99m labeled MAA IV. Chest radiograph from yesterday is available for comparison. Findings: There is retention of radiotracer on washout phase. There is no mismatched defect on ventilation imaging. Impression: Exam is low probability for pulmonary embolism. Air trapping.
[2016-12-16 14:35] VITALS: BP 121/54
--- NOTE | 2016-12-16 17:45 | PDOC ---
PULMONARY PROGRESS NOTES Vitals Vital Signs Date Time Temp Pulse Resp B/P Pulse Ox O2 Delivery O2 Flow Rate FiO2 12/16/16 17:21 97 Nasal Cannula 3.0 12/16/16 14:35 97.8 56 18 121/54 97.8 Lungs: Other Labs Laboratory Tests Test 12/15/16 23:13 12/16/16 00:14 12/16/16 06:55 12/16/16 13:03 White Blood Count 9.7x10^3/uL (4.0-11.0) Red Blood Count 3.14x10^6/uL (4.30-5.70) Hemoglobin 9.2g/dL (13.0-17.5) Hematocrit 28.2% (39.0-53.0) Mean Corpuscular Volume 90fL (79-100) Mean Corpuscular Hemoglobin 29pg (25-35) Mean Corpuscular Hemoglobin Concent 33g/dL (31-37) Red Cell Distribution Width 17.2% (11.5-14.5) Platelet Count 180x10^3/uL (140-400) Neutrophils (%) (Auto) 81% (31-73) Lymphocytes (%) (Auto) 8% (24-48) Monocytes (%) (Auto) 10% (0-9) Eosinophils (%) (Auto) 1% (0-3) Basophils (%) (Auto) 0% (0-3) Neutrophils # (Auto) 7.8x10^3uL (1.8-7.7) Lymphocytes # (Auto) 0.8x10^3/uL (1.0-4.8) Monocytes # (Auto) 0.9x10^3/uL (0.0-1.1) Eosinophils # (Auto) 0.1x10^3/uL (0.0-0.7) Basophils # (Auto) 0.0x10^3/uL (0.0-0.2) Sodium Level 145mmol/L (136-145) Potassium Level 4.1mmol/L (3.5-5.1) Chloride Level 106mmol/L (98-107) Carbon Dioxide Level 30mmol/L (21-32) Anion Gap 9 (6-14) Blood Urea Nitrogen 65mg/dL (8-26) Creatinine 2.0mg/dL (0.7-1.3) Estimated GFR (Cockcroft-Gault) 33.4 Glucose Level 126mg/dL (70-99) Calcium Level 9.0mg/dL (8.5-10.1) Total Bilirubin 0.4mg/dL (0.2-1.0) Direct Bilirubin 0.1mg/dL (0.0-0.2) Aspartate Amino Transf (AST/SGOT) 15U/L (15-37) Alanine Aminotransferase (ALT/SGPT) 16U/L (16-63) Alkaline Phosphatase 82U/L (46-116) Troponin I Quantitative 0.030ng/mL (0.000-0.055) 0.022ng/mL (0.000-0.055) 0.035ng/mL (0.000-0.055) SF-Ofb-U-Type Natriuretic Peptide 1153pg/mL (0-124) Total Protein 6.4g/dL (6.4-8.2) Albumin 2.9g/dL (3.4-5.0) Prothrombin Time 18.2SEC (11.7-14.0) Prothromb Time International Ratio 1.6 (0.8-1.1) Activated Partial Thromboplast Time 36SEC (24-38) D-Dimer (Lazara) 1.26ug/mlFEU (0.00-0.50) Laboratory Tests Test 12/15/16 23:13 12/16/16 00:14 12/16/16 06:55 12/16/16 13:03 White Blood Count 9.7x10^3/uL (4.0-11.0) Red Blood Count 3.14x10^6/uL (4.30-5.70) Hemoglobin 9.2g/dL (13.0-17.5) Hematocrit 28.2% (39.0-53.0) Mean Corpuscular Volume 90fL (79-100) Mean Corpuscular Hemoglobin 29pg (25-35) Mean Corpuscular Hemoglobin Concent 33g/dL (31-37) Red Cell Distribution Width 17.2% (11.5-14.5) Platelet Count 180x10^3/uL (140-400) Neutrophils (%) (Auto) 81% (31-73) Lymphocytes (%) (Auto) 8% (24-48) Monocytes (%) (Auto) 10% (0-9) Eosinophils (%) (Auto) 1% (0-3) Basophils (%) (Auto) 0% (0-3) Neutrophils # (Auto) 7.8x10^3uL (1.8-7.7) Lymphocytes # (Auto) 0.8x10^3/uL (1.0-4.8) Monocytes # (Auto) 0.9x10^3/uL (0.0-1.1) Eosinophils # (Auto) 0.1x10^3/uL (0.0-0.7) Basophils # (Auto) 0.0x10^3/uL (0.0-0.2) Sodium Level 145mmol/L (136-145) Potassium Level 4.1mmol/L (3.5-5.1) Chloride Level 106mmol/L (98-107) Carbon Dioxide Level 30mmol/L (21-32) Anion Gap 9 (6-14) Blood Urea Nitrogen 65mg/dL (8-26) Creatinine 2.0mg/dL (0.7-1.3) Estimated GFR (Cockcroft-Gault) 33.4 Glucose Level 126mg/dL (70-99) Calcium Level 9.0mg/dL (8.5-10.1) Total Bilirubin 0.4mg/dL (0.2-1.0) Direct Bilirubin 0.1mg/dL (0.0-0.2) Aspartate Amino Transf (AST/SGOT) 15U/L (15-37) Alanine Aminotransferase (ALT/SGPT) 16U/L (16-63) Alkaline Phosphatase 82U/L (46-116) Troponin I Quantitative 0.030ng/mL (0.000-0.055) 0.022ng/mL (0.000-0.055) 0.035ng/mL (0.000-0.055) DO-Zif-Y-Type Natriuretic Peptide 1153pg/mL (0-124) Total Protein 6.4g/dL (6.4-8.2) Albumin 2.9g/dL (3.4-5.0) Prothrombin Time 18.2SEC (11.7-14.0) Prothromb Time International Ratio 1.6 (0.8-1.1) Activated Partial Thromboplast Time 36SEC (24-38) D-Dimer (Lazara) 1.26ug/mlFEU (0.00-0.50) Medications Active Scripts Medications Dose Route/Sig Days Date Category Prednisone 20 Mg Tablet 1 Tab PO BID 12/04/16 Reported Potassium Chloride 20 Meq Tablet.er 20 Meq PO TID 12/04/16 Reported Guaifenesin 600 Mg Tablet.er 600 Mg PO BID 12/04/16 Reported Furosemide 20 Mg Tablet 1 Tab PO DAILY 12/04/16 Reported Albuterol Sulfate Neb Soln (Albuterol Sulfate) 2.5 Mg/3 Ml Vial.neb 2.5 Mg NEB PRN Q2HR PRN 12/04/16 Reported Oxycodone Hcl 10 Mg Tablet 10 Mg PO PRN Q4HRS PRN 11/29/16 Reported Amiodarone Hcl 200 Mg Tablet 1 Tab PO DAILY 11/25/16 Reported Bupropion Hcl 100 Mg Tablet 100 Mg PO BID 11/25/16 Reported Metoprolol Succinate 50 Mg Tab.er.24h 50 Mg PO DAILY 11/25/16 Reported Lisinopril 5 Mg Tablet 1 Tab PO DAILY 11/25/16 Reported Senna-Docusate Sodium Tablet (Sennosides/Docusate Sodium) 1 Each Tablet 1 Each PO PRN BID PRN 11/25/16 Reported Zyrtec (Cetirizine Hcl) 10 Mg Tablet 1 Tab PO DAILY 11/25/16 Reported Benzonatate 100 Mg Capsule 1 Cap PO PRN TID PRN 11/25/16 Reported Ascorbic Acid 250 Mg Tablet 250 Mg PO BID 11/25/16 Reported Eliquis (Apixaban) 5 Mg Tablet 5 Mg PO BID 11/25/16 Reported Protonix (Pantoprazole Sodium) 40 Mg Tablet.dr 1 Tab PO BID 11/25/16 Reported Ferrous Sulfate 325 Mg Tablet 1 Tab PO BID 11/25/16 Reported Spironolactone 25 Mg Tablet 0.5 Tab PO DAILY 08/13/15 Reported [Duoneb] 08/13/15 Reported [Combivent] 08/13/15 Reported [Proventil] 08/13/15 Reported [Symbicort] 08/13/15 Reported Pravastatin Sodium 10 Mg Tablet 0.5 Tab PO HS 08/13/15 Reported Aspirin 81 Mg Tab.chew 1 Tab PO DAILY 08/13/15 Reported Impression . full note dictated will check CT of chest ZURI VINSON MD Dec 16, 2016 17:45
[2016-12-16 19:10] VITALS: BP 118/57
[2016-12-16] MEDS: FERROUS SULFATE 325 MG TABLET PO SCH (20:08)
[2016-12-16] MEDS: ATORVASTATIN CALCIUM 10 MG TABLET. PO SCH (20:08)
[2016-12-16 23:00] VITALS: BP 120/59
[2016-12-17] MEDS: MORPHINE SULFATE 2 MG/ML DISP.SYRIN. IV PRN ×4 (01:08→20:28)
--- NOTE | 2016-12-17 02:15 | CONS ---
DATE OF CONSULTATION: 12/16/2016 ATTENDING PHYSICIAN: Dr. Cummings. REASON FOR CONSULTATION: The patient is seen in pulmonary consultation at the request of Dr. Cummings for hemoptysis. HISTORY OF PRESENT ILLNESS: The patient is a 66-year-old male presented with hemoptysis x 24 hours mostly mixed in with mucus. No bright red blood. No fever, chills or night sweats. He was also having some lateral chest wall pain. Denied fever, chills or night sweats. He normally wears 2-3 liters of oxygen at home. He had a chest x-ray which was abnormal revealing the possibility of a right lower lobe medial mass. PAST MEDICAL HISTORY: Chronic respiratory failure, COPD, hyperlipidemia, chronic AFib, hypertension, renal disease, coronary artery bypass grafting, tonsillectomy. PAST SURGICAL HISTORY: As above. REVIEW OF SYSTEMS: As indicated above, otherwise a 10-point system was reviewed and negative. ALLERGIES: LISTED TO OXYCODONE, PEANUTS, PROPOXYPHENE, AND TRAMADOL. SOCIAL HISTORY: He quit tobacco approximately a year ago. Denies any alcohol intake. CURRENT MEDICATIONS: List was reviewed. Please see the MRAD. PHYSICAL EXAMINATION: VITAL SIGNS: On examination, the patient was in no respiratory distress at 3 L of oxygen supplementation, saturation 94%. HEENT: Eyes, the sclerae were nonicteric. NECK: Jugular venous distention was not elevated. No lymphadenopathy. CHEST: Full expansion. LUNGS: Poor airway flow with no wheezes. CARDIOVASCULAR: Regular rate and rhythm with S1, S2, no S3. ABDOMEN: Soft, nontender, nondistended. EXTREMITIES: No clubbing, cyanosis or edema. NEUROLOGIC: The patient was awake, alert, following commands. A detailed neuro exam was not performed. LABORATORY DATA: Reviewed. White count was noted normal. Electrolytes were noted. Chest x-ray abnormal as indicated above. IMPRESSION: 1. Abnormal x-rays. 2. Hemoptysis. 3. Acute exacerbation of chronic obstructive pulmonary disease. 4. Acute nonspecific bronchitis. 5. Coronary artery disease status post coronary artery bypass grafting. 6. Chronic respiratory failure. PLAN: 1. Obtain CT chest, no contrast. 2. Continue oxygen supplementation. 3. Oral prednisone. 4. Hold off on antibiotics for now. I do appreciate the privilege in sharing in the patient's care. ZURI VINSON MD DR: Queta JOB#: [id number] / [id number]
[2016-12-17 03:05] VITALS: BP 113/54
[2016-12-17] MEDS: OXYCODONE IR 5 MG TABLET. PO PRN ×5 (03:56→22:25)
[2016-12-17 04:45] LABS: BASO % 0 % (0-3); EOS % 0 % (0-3); HEMATOCRIT 23.6 % (39.0-53.0); HEMOGLOBIN 7.8 g/dL (13.0-17.5); LYMPH # 0.4 x10^3/uL (1.0-4.8); LYMPH % 4 % (24-48); MEAN CORPUSCULAR HEMOGLOBIN 30 pg (25-35); MEAN CORPUSCULAR HGB CONC 33 g/dL (31-37); MEAN CORPUSCULAR VOLUME 89 fL (79-100); MONO % 4 % (0-9); NEUT % 92 % (31-73); PLATELET COUNT 158 x10^3/uL (140-400); RED BLOOD COUNT 2.65 x10^6/uL (4.30-5.70); RED CELL DISTRIBUTION WIDTH 17.6 % (11.5-14.5); WHITE BLOOD COUNT 9.3 x10^3/uL (4.0-11.0)
[2016-12-17 05:06] LABS: CALCIUM 8.6 mg/dL (8.5-10.1); CREATININE 1.3 mg/dL (0.7-1.3); GFR 54.9; POTASSIUM 4.5 mmol/L (3.5-5.1)
[2016-12-17 07:12] VITALS: BP 121/64
[2016-12-17] MEDS: GUAIFENESIN ER 600 MG TABLET.ER PO SCH ×2 (08:20→20:27)
[2016-12-17] MEDS: METOPROLOL SUCC 24HR ER 50 MG TAB.ER.24H. PO SCH (08:20)
[2016-12-17] MEDS: buPROPion 100 MG TABLET PO SCH ×2 (08:21→20:26)
[2016-12-17] MEDS: PANTOPRAZOLE 40 MG TABLET. PO SCH ×2 (08:21→20:27)
[2016-12-17] MEDS: PREDNISONE 20 MG TABLET PO SCH ×2 (08:21→20:27)
[2016-12-17] MEDS: CETIRIZINE HCL 10 MG TABLET PO SCH (08:21)
[2016-12-17] MEDS: ASCORBIC ACID 500 MG TABLET PO SCH (08:21)
[2016-12-17] MEDS: ASPIRIN 81 MG TAB.CHEW PO SCH (08:21)
[2016-12-17] MEDS: FERROUS SULFATE 325 MG TABLET PO SCH ×2 (08:21→20:27)
[2016-12-17] MEDS: SPIRONOLACTONE 25 MG TABLET PO SCH (08:21)
[2016-12-17] MEDS: AMIODARONE HCL 200 MG TABLET PO SCH (08:21)
--- NOTE | 2016-12-17 09:51 | PDOC ---
PULMONARY PROGRESS NOTES Subjective Pt feels better Vitals Vital Signs Date Time Temp Pulse Resp B/P Pulse Ox O2 Delivery O2 Flow Rate FiO2 12/17/16 08:23 16 99 Nasal Cannula 3.0 12/17/16 08:21 69 121/64 12/17/16 07:12 97.5 97.5 ROS: No Nausea, No Chest Pain, No Abdominal Pain, No Increase Cough Lungs: Clear, Other Cardiovascular: S1 Abdomen: Soft Neuro Exam: Alert Extremities: No Edema Skin: Warm Labs Laboratory Tests Test 12/15/16 23:13 12/16/16 00:14 12/16/16 06:00 12/16/16 06:55 White Blood Count 9.7x10^3/uL (4.0-11.0) Red Blood Count 3.14x10^6/uL (4.30-5.70) Hemoglobin 9.2g/dL (13.0-17.5) Hematocrit 28.2% (39.0-53.0) Mean Corpuscular Volume 90fL (79-100) Mean Corpuscular Hemoglobin 29pg (25-35) Mean Corpuscular Hemoglobin Concent 33g/dL (31-37) Red Cell Distribution Width 17.2% (11.5-14.5) Platelet Count 180x10^3/uL (140-400) Neutrophils (%) (Auto) 81% (31-73) Lymphocytes (%) (Auto) 8% (24-48) Monocytes (%) (Auto) 10% (0-9) Eosinophils (%) (Auto) 1% (0-3) Basophils (%) (Auto) 0% (0-3) Neutrophils # (Auto) 7.8x10^3uL (1.8-7.7) Lymphocytes # (Auto) 0.8x10^3/uL (1.0-4.8) Monocytes # (Auto) 0.9x10^3/uL (0.0-1.1) Eosinophils # (Auto) 0.1x10^3/uL (0.0-0.7) Basophils # (Auto) 0.0x10^3/uL (0.0-0.2) Sodium Level 145mmol/L (136-145) Potassium Level 4.1mmol/L (3.5-5.1) Chloride Level 106mmol/L (98-107) Carbon Dioxide Level 30mmol/L (21-32) Anion Gap 9 (6-14) Blood Urea Nitrogen 65mg/dL (8-26) Creatinine 2.0mg/dL (0.7-1.3) Estimated GFR (Cockcroft-Gault) 33.4 Glucose Level 126mg/dL (70-99) Calcium Level 9.0mg/dL (8.5-10.1) Total Bilirubin 0.4mg/dL (0.2-1.0) Direct Bilirubin 0.1mg/dL (0.0-0.2) Aspartate Amino Transf (AST/SGOT) 15U/L (15-37) Alanine Aminotransferase (ALT/SGPT) 16U/L (16-63) Alkaline Phosphatase 82U/L (46-116) Troponin I Quantitative 0.030ng/mL (0.000-0.055) 0.022ng/mL (0.000-0.055) BR-Dah-T-Type Natriuretic Peptide 1153pg/mL (0-124) Total Protein 6.4g/dL (6.4-8.2) Albumin 2.9g/dL (3.4-5.0) Prothrombin Time 18.2SEC (11.7-14.0) Prothromb Time International Ratio 1.6 (0.8-1.1) Activated Partial Thromboplast Time 36SEC (24-38) D-Dimer (Lazara) 1.26ug/mlFEU (0.00-0.50) Nasal Screen MRSA (PCR) Positive (Negative) Test 12/16/16 13:03 12/17/16 03:38 Troponin I Quantitative 0.035ng/mL (0.000-0.055) White Blood Count 9.3x10^3/uL (4.0-11.0) Red Blood Count 2.65x10^6/uL (4.30-5.70) Hemoglobin 7.8g/dL (13.0-17.5) Hematocrit 23.6% (39.0-53.0) Mean Corpuscular Volume 89fL (79-100) Mean Corpuscular Hemoglobin 30pg (25-35) Mean Corpuscular Hemoglobin Concent 33g/dL (31-37) Red Cell Distribution Width 17.6% (11.5-14.5) Platelet Count 158x10^3/uL (140-400) Neutrophils (%) (Auto) 92% (31-73) Lymphocytes (%) (Auto) 4% (24-48) Monocytes (%) (Auto) 4% (0-9) Eosinophils (%) (Auto) 0% (0-3) Basophils (%) (Auto) 0% (0-3) Neutrophils # (Auto) 8.5x10^3uL (1.8-7.7) Lymphocytes # (Auto) 0.4x10^3/uL (1.0-4.8) Monocytes # (Auto) 0.4x10^3/uL (0.0-1.1) Eosinophils # (Auto) 0.0x10^3/uL (0.0-0.7) Basophils # (Auto) 0.0x10^3/uL (0.0-0.2) Sodium Level 144mmol/L (136-145) Potassium Level 4.5mmol/L (3.5-5.1) Chloride Level 109mmol/L (98-107) Carbon Dioxide Level 27mmol/L (21-32) Anion Gap 8 (6-14) Blood Urea Nitrogen 38mg/dL (8-26) Creatinine 1.3mg/dL (0.7-1.3) Estimated GFR (Cockcroft-Gault) 54.9 Glucose Level 155mg/dL (70-99) Calcium Level 8.6mg/dL (8.5-10.1) Laboratory Tests Test 12/16/16 13:03 12/17/16 03:38 Troponin I Quantitative 0.035ng/mL (0.000-0.055) White Blood Count 9.3x10^3/uL (4.0-11.0) Red Blood Count 2.65x10^6/uL (4.30-5.70) Hemoglobin 7.8g/dL (13.0-17.5) Hematocrit 23.6% (39.0-53.0) Mean Corpuscular Volume 89fL (79-100) Mean Corpuscular Hemoglobin 30pg (25-35) Mean Corpuscular Hemoglobin Concent 33g/dL (31-37) Red Cell Distribution Width 17.6% (11.5-14.5) Platelet Count 158x10^3/uL (140-400) Neutrophils (%) (Auto) 92% (31-73) Lymphocytes (%) (Auto) 4% (24-48) Monocytes (%) (Auto) 4% (0-9) Eosinophils (%) (Auto) 0% (0-3) Basophils (%) (Auto) 0% (0-3) Neutrophils # (Auto) 8.5x10^3uL (1.8-7.7) Lymphocytes # (Auto) 0.4x10^3/uL (1.0-4.8) Monocytes # (Auto) 0.4x10^3/uL (0.0-1.1) Eosinophils # (Auto) 0.0x10^3/uL (0.0-0.7) Basophils # (Auto) 0.0x10^3/uL (0.0-0.2) Sodium Level 144mmol/L (136-145) Potassium Level 4.5mmol/L (3.5-5.1) Chloride Level 109mmol/L (98-107) Carbon Dioxide Level 27mmol/L (21-32) Anion Gap 8 (6-14) Blood Urea Nitrogen 38mg/dL (8-26) Creatinine 1.3mg/dL (0.7-1.3) Estimated GFR (Cockcroft-Gault) 54.9 Glucose Level 155mg/dL (70-99) Calcium Level 8.6mg/dL (8.5-10.1) Medications Active Scripts Medications Dose Route/Sig Days Date Category Prednisone 20 Mg Tablet 1 Tab PO BID 12/04/16 Reported Potassium Chloride 20 Meq Tablet.er 20 Meq PO TID 12/04/16 Reported Guaifenesin 600 Mg Tablet.er 600 Mg PO BID 12/04/16 Reported Furosemide 20 Mg Tablet 1 Tab PO DAILY 12/04/16 Reported Albuterol Sulfate Neb Soln (Albuterol Sulfate) 2.5 Mg/3 Ml Vial.neb 2.5 Mg NEB PRN Q2HR PRN 12/04/16 Reported Oxycodone Hcl 10 Mg Tablet 10 Mg PO PRN Q4HRS PRN 11/29/16 Reported Amiodarone Hcl 200 Mg Tablet 1 Tab PO DAILY 11/25/16 Reported Bupropion Hcl 100 Mg Tablet 100 Mg PO BID 11/25/16 Reported Metoprolol Succinate 50 Mg Tab.er.24h 50 Mg PO DAILY 11/25/16 Reported Lisinopril 5 Mg Tablet 1 Tab PO DAILY 11/25/16 Reported Senna-Docusate Sodium Tablet (Sennosides/Docusate Sodium) 1 Each Tablet 1 Each PO PRN BID PRN 11/25/16 Reported Zyrtec (Cetirizine Hcl) 10 Mg Tablet 1 Tab PO DAILY 11/25/16 Reported Benzonatate 100 Mg Capsule 1 Cap PO PRN TID PRN 11/25/16 Reported Ascorbic Acid 250 Mg Tablet 250 Mg PO BID 11/25/16 Reported Eliquis (Apixaban) 5 Mg Tablet 5 Mg PO BID 11/25/16 Reported Protonix (Pantoprazole Sodium) 40 Mg Tablet.dr 1 Tab PO BID 11/25/16 Reported Ferrous Sulfate 325 Mg Tablet 1 Tab PO BID 11/25/16 Reported Spironolactone 25 Mg Tablet 0.5 Tab PO DAILY 08/13/15 Reported [Duoneb] 08/13/15 Reported [Combivent] 08/13/15 Reported [Proventil] 08/13/15 Reported [Symbicort] 08/13/15 Reported Pravastatin Sodium 10 Mg Tablet 0.5 Tab PO HS 08/13/15 Reported Aspirin 81 Mg Tab.chew 1 Tab PO DAILY 08/13/15 Reported Impression . 1. Abnormal x-rays. 2. Hemoptysis. 3. Acute exacerbation of chronic obstructive pulmonary disease. 4. Acute nonspecific bronchitis. 5. Coronary artery disease status post coronary artery bypass grafting. 6. Chronic respiratory failure. Plan . PLAN: 1. see report of CT 2. Continue oxygen supplementation. 3. Oral prednisone. 4. Hold off on antibiotics for now. 5. Follow up CT in 3 months 6. D/C in am ok by me Impression: 1. Pulmonary nodules up to 9 mm in size, 3 month follow-up is recommended per Fleischner Society. 2. Bandlike opacity in the right lower lobe along with bronchial wall thickening appears to correspond to the area of concern on chest radiograph. Findings may be infectious or related to scarring. Findings can be reevaluated in 3 months as well. 3. Emphysema. ZURI VINSON MD Dec 17, 2016 09:51
--- NOTE | 2016-12-17 10:33 | PDOC ---
PROGRESS NOTES Chief Complaint Chief Complaint A/P 1. Hemoptysis, present on admission, round opacity in the right lung base. 2. Chronic atrial fibrillation, on oral anticoagulation; chronic obstructive pulmonary disease, and chronic respiratory failure. 3. Hypertension. 4. Coronary artery disease. 5. Chronic back pain. 6. MELLISSA improved. 7. LLE Great toe blood blister, Plan aerial Dopplex LE iv morphine 1 mg q2 hrs hold OAC CT chest pending resume lasix and lisinopril pain control monitor hemoglobin History of Present Illness History of Present Illness no hemoptysis no chest pain no palpitation Vitals Vitals Vital Signs Date Time Temp Pulse Resp B/P Pulse Ox O2 Delivery O2 Flow Rate FiO2 12/17/16 08:23 16 99 Nasal Cannula 3.0 12/17/16 08:21 69 121/64 12/17/16 07:12 97.5 97.5 Physical Exam General: Alert, Oriented X3 Heart: Normal S1, Normal S2 Lungs: Clear, Other Abdomen: Normal bowel sounds, Soft Skin: Other (great toe left blister and pain, pulse presenet feeble. ) Labs LABS Laboratory Tests Test 12/16/16 13:03 12/17/16 03:38 Troponin I Quantitative 0.035ng/mL (0.000-0.055) White Blood Count 9.3x10^3/uL (4.0-11.0) Red Blood Count 2.65x10^6/uL (4.30-5.70) Hemoglobin 7.8g/dL (13.0-17.5) Hematocrit 23.6% (39.0-53.0) Mean Corpuscular Volume 89fL (79-100) Mean Corpuscular Hemoglobin 30pg (25-35) Mean Corpuscular Hemoglobin Concent 33g/dL (31-37) Red Cell Distribution Width 17.6% (11.5-14.5) Platelet Count 158x10^3/uL (140-400) Neutrophils (%) (Auto) 92% (31-73) Lymphocytes (%) (Auto) 4% (24-48) Monocytes (%) (Auto) 4% (0-9) Eosinophils (%) (Auto) 0% (0-3) Basophils (%) (Auto) 0% (0-3) Neutrophils # (Auto) 8.5x10^3uL (1.8-7.7) Lymphocytes # (Auto) 0.4x10^3/uL (1.0-4.8) Monocytes # (Auto) 0.4x10^3/uL (0.0-1.1) Eosinophils # (Auto) 0.0x10^3/uL (0.0-0.7) Basophils # (Auto) 0.0x10^3/uL (0.0-0.2) Sodium Level 144mmol/L (136-145) Potassium Level 4.5mmol/L (3.5-5.1) Chloride Level 109mmol/L (98-107) Carbon Dioxide Level 27mmol/L (21-32) Anion Gap 8 (6-14) Blood Urea Nitrogen 38mg/dL (8-26) Creatinine 1.3mg/dL (0.7-1.3) Estimated GFR (Cockcroft-Gault) 54.9 Glucose Level 155mg/dL (70-99) Calcium Level 8.6mg/dL (8.5-10.1) Assessment and Plan Assessmemt and Plan Problems Medical Problems: (1) Hemoptysis Status: Acute (2) Right-sided chest pain Status: Acute Problems: Comment Review of Relevant I have reviewed the following items meka (where applicable) has been applied. Labs Laboratory Tests Test 12/15/16 23:13 12/16/16 00:14 12/16/16 06:00 12/16/16 06:55 White Blood Count 9.7x10^3/uL (4.0-11.0) Red Blood Count 3.14x10^6/uL (4.30-5.70) Hemoglobin 9.2g/dL (13.0-17.5) Hematocrit 28.2% (39.0-53.0) Mean Corpuscular Volume 90fL (79-100) Mean Corpuscular Hemoglobin 29pg (25-35) Mean Corpuscular Hemoglobin Concent 33g/dL (31-37) Red Cell Distribution Width 17.2% (11.5-14.5) Platelet Count 180x10^3/uL (140-400) Neutrophils (%) (Auto) 81% (31-73) Lymphocytes (%) (Auto) 8% (24-48) Monocytes (%) (Auto) 10% (0-9) Eosinophils (%) (Auto) 1% (0-3) Basophils (%) (Auto) 0% (0-3) Neutrophils # (Auto) 7.8x10^3uL (1.8-7.7) Lymphocytes # (Auto) 0.8x10^3/uL (1.0-4.8) Monocytes # (Auto) 0.9x10^3/uL (0.0-1.1) Eosinophils # (Auto) 0.1x10^3/uL (0.0-0.7) Basophils # (Auto) 0.0x10^3/uL (0.0-0.2) Sodium Level 145mmol/L (136-145) Potassium Level 4.1mmol/L (3.5-5.1) Chloride Level 106mmol/L (98-107) Carbon Dioxide Level 30mmol/L (21-32) Anion Gap 9 (6-14) Blood Urea Nitrogen 65mg/dL (8-26) Creatinine 2.0mg/dL (0.7-1.3) Estimated GFR (Cockcroft-Gault) 33.4 Glucose Level 126mg/dL (70-99) Calcium Level 9.0mg/dL (8.5-10.1) Total Bilirubin 0.4mg/dL (0.2-1.0) Direct Bilirubin 0.1mg/dL (0.0-0.2) Aspartate Amino Transf (AST/SGOT) 15U/L (15-37) Alanine Aminotransferase (ALT/SGPT) 16U/L (16-63) Alkaline Phosphatase 82U/L (46-116) Troponin I Quantitative 0.030ng/mL (0.000-0.055) 0.022ng/mL (0.000-0.055) QC-Muy-P-Type Natriuretic Peptide 1153pg/mL (0-124) Total Protein 6.4g/dL (6.4-8.2) Albumin 2.9g/dL (3.4-5.0) Prothrombin Time 18.2SEC (11.7-14.0) Prothromb Time International Ratio 1.6 (0.8-1.1) Activated Partial Thromboplast Time 36SEC (24-38) D-Dimer (Lazara) 1.26ug/mlFEU (0.00-0.50) Nasal Screen MRSA (PCR) Positive (Negative) Test 12/16/16 13:03 12/17/16 03:38 Troponin I Quantitative 0.035ng/mL (0.000-0.055) White Blood Count 9.3x10^3/uL (4.0-11.0) Red Blood Count 2.65x10^6/uL (4.30-5.70) Hemoglobin 7.8g/dL (13.0-17.5) Hematocrit 23.6% (39.0-53.0) Mean Corpuscular Volume 89fL (79-100) Mean Corpuscular Hemoglobin 30pg (25-35) Mean Corpuscular Hemoglobin Concent 33g/dL (31-37) Red Cell Distribution Width 17.6% (11.5-14.5) Platelet Count 158x10^3/uL (140-400) Neutrophils (%) (Auto) 92% (31-73) Lymphocytes (%) (Auto) 4% (24-48) Monocytes (%) (Auto) 4% (0-9) Eosinophils (%) (Auto) 0% (0-3) Basophils (%) (Auto) 0% (0-3) Neutrophils # (Auto) 8.5x10^3uL (1.8-7.7) Lymphocytes # (Auto) 0.4x10^3/uL (1.0-4.8) Monocytes # (Auto) 0.4x10^3/uL (0.0-1.1) Eosinophils # (Auto) 0.0x10^3/uL (0.0-0.7) Basophils # (Auto) 0.0x10^3/uL (0.0-0.2) Sodium Level 144mmol/L (136-145) Potassium Level 4.5mmol/L (3.5-5.1) Chloride Level 109mmol/L (98-107) Carbon Dioxide Level 27mmol/L (21-32) Anion Gap 8 (6-14) Blood Urea Nitrogen 38mg/dL (8-26) Creatinine 1.3mg/dL (0.7-1.3) Estimated GFR (Cockcroft-Gault) 54.9 Glucose Level 155mg/dL (70-99) Calcium Level 8.6mg/dL (8.5-10.1) Laboratory Tests Test 12/16/16 13:03 12/17/16 03:38 Troponin I Quantitative 0.035ng/mL (0.000-0.055) White Blood Count 9.3x10^3/uL (4.0-11.0) Red Blood Count 2.65x10^6/uL (4.30-5.70) Hemoglobin 7.8g/dL (13.0-17.5) Hematocrit 23.6% (39.0-53.0) Mean Corpuscular Volume 89fL (79-100) Mean Corpuscular Hemoglobin 30pg (25-35) Mean Corpuscular Hemoglobin Concent 33g/dL (31-37) Red Cell Distribution Width 17.6% (11.5-14.5) Platelet Count 158x10^3/uL (140-400) Neutrophils (%) (Auto) 92% (31-73) Lymphocytes (%) (Auto) 4% (24-48) Monocytes (%) (Auto) 4% (0-9) Eosinophils (%) (Auto) 0% (0-3) Basophils (%) (Auto) 0% (0-3) Neutrophils # (Auto) 8.5x10^3uL (1.8-7.7) Lymphocytes # (Auto) 0.4x10^3/uL (1.0-4.8) Monocytes # (Auto) 0.4x10^3/uL (0.0-1.1) Eosinophils # (Auto) 0.0x10^3/uL (0.0-0.7) Basophils # (Auto) 0.0x10^3/uL (0.0-0.2) Sodium Level 144mmol/L (136-145) Potassium Level 4.5mmol/L (3.5-5.1) Chloride Level 109mmol/L (98-107) Carbon Dioxide Level 27mmol/L (21-32) Anion Gap 8 (6-14) Blood Urea Nitrogen 38mg/dL (8-26) Creatinine 1.3mg/dL (0.7-1.3) Estimated GFR (Cockcroft-Gault) 54.9 Glucose Level 155mg/dL (70-99) Calcium Level 8.6mg/dL (8.5-10.1) Medications Current Medications Acetaminophen (Tylenol) 1,000 mg 1X ONCE PO Last administered on 12/15/16 00: 14; Start 12/15/16 at 23:45; Stop 12/15/16 at 23:46; Status DC Ondansetron HCl (Zofran) 4 mg PRN Q8HRS PRN IV NAUSEA/VOMITING; Start 12/16/16 at 01:15; Stop 12/16/16 at 02:10; Status DC Morphine Sulfate 2 mg PRN Q2HR PRN IV PAIN Last administered on 12/17/16 01:08 ; Start 12/16/16 at 01:15; Stop 12/17/16 at 01:14; Status DC Acetaminophen 650 mg 650 mg PRN Q4HRS PRN PO FEVER; Start 12/16/16 at 01:15; Stop 12/17/16 at 01:14; Status DC Sodium Chloride (Iv Sodium Chloride 0.9% 500ml Bag) 500 ml @ 500 mls/hr 1X ONCE IV Last administered on 12/16/16 02:52; Start 12/16/16 at 01:15; Stop at 02:14; Status DC Albuterol Sulfate (Ventolin Neb Soln) 2.5 mg PRN Q2HR PRN NEB SHORTNESS OF BREATH; Start 12/16/16 at 10:15 Amiodarone HCl (Cordarone) 200 mg DAILY PO Last administered on 12/17/16 08:21 ; Start 12/17/16 at 09:00 Aspirin (Children'S Aspirin) 81 mg DAILY PO Last administered on 12/17/16 08: 21; Start 12/16/16 at 12:00 Benzonatate (Tessalon Perle) 100 mg PRN TID PRN PO COUGH; Start 12/16/16 at 10: 15 Bupropion HCl (Wellbutrin) 100 mg BID PO Last administered on 12/17/16 08:21; Start 12/16/16 at 11:30 Cetirizine HCl (Zyrtec) 10 mg DAILY PO Last administered on 12/17/16 08:21; Start 12/16/16 at 11:30 Ferrous Sulfate (Feosol) 325 mg BID PO Last administered on 12/17/16 08:21; Start 12/16/16 at 21:00 Guaifenesin (Mucinex) 600 mg BID PO Last administered on 12/17/16 08:20; Start 12/16/16 at 11:30 Metoprolol Succinate (Toprol Xl) 50 mg DAILY PO Last administered on 12/17/16 08:20; Start 12/16/16 at 11:30 Pantoprazole Sodium (Protonix) 40 mg BID PO Last administered on 12/17/16 08: 21; Start 12/16/16 at 11:30 Prednisone (Prednisone) 20 mg BID PO Last administered on 12/17/16 08:21; Start 12/16/16 at 11:30 Senna/Docusate Sodium (Senna Plus) 1 tab PRN BID PRN PO CONSTIPATION; Start at 10:15 Spironolactone (Aldactone) 25 mg DAILY PO Last administered on 12/17/16 08:21 ; Start 12/16/16 at 12:00 Ascorbic Acid (Vitamin C) 500 mg DAILY PO Last administered on 12/17/16 08:21 ; Start 12/17/16 at 09:00 Oxycodone HCl (Roxicodone) 10 mg PRN Q4HRS PRN PO PAIN Last administered on 08:23; Start 12/16/16 at 11:15 Atorvastatin Calcium (Lipitor) 5 mg QHS PO Last administered on 12/16/16 20:08 ; Start 12/16/16 at 21:00 Active Scripts Active Reported Prednisone 20 Mg Tablet 1 Tab PO BID Potassium Chloride 20 Meq Tablet.er 20 Meq PO TID Guaifenesin 600 Mg Tablet.er 600 Mg PO BID Furosemide 20 Mg Tablet 1 Tab PO DAILY Albuterol Sulfate Neb Soln (Albuterol Sulfate) 2.5 Mg/3 Ml Vial.neb 2.5 Mg NEB PRN Q2HR PRN Oxycodone Hcl 10 Mg Tablet 10 Mg PO PRN Q4HRS PRN Amiodarone Hcl 200 Mg Tablet 1 Tab PO DAILY Bupropion Hcl 100 Mg Tablet 100 Mg PO BID Metoprolol Succinate 50 Mg Tab.er.24h 50 Mg PO DAILY Lisinopril 5 Mg Tablet 1 Tab PO DAILY Senna-Docusate Sodium Tablet (Sennosides/Docusate Sodium) 1 Each Tablet 1 Each PO PRN BID PRN Zyrtec (Cetirizine Hcl) 10 Mg Tablet 1 Tab PO DAILY Benzonatate 100 Mg Capsule 1 Cap PO PRN TID PRN Ascorbic Acid 250 Mg Tablet 250 Mg PO BID Eliquis (Apixaban) 5 Mg Tablet 5 Mg PO BID Protonix (Pantoprazole Sodium) 40 Mg Tablet.dr 1 Tab PO BID Ferrous Sulfate 325 Mg Tablet 1 Tab PO BID Spironolactone 25 Mg Tablet 0.5 Tab PO DAILY [Duoneb] [Combivent] [Proventil] [Symbicort] Pravastatin Sodium 10 Mg Tablet 0.5 Tab PO HS Aspirin 81 Mg Tab.chew 1 Tab PO DAILY Vitals/I & O Vital Sign - Last 24 Hours 12/16/16 12/16/16 12/16/16 12/16/16 10:50 12:10 13:21 13:38 Temp 97.5 97.5 Pulse 75 75 Resp 18 B/P 116/48 116/48 Pulse Ox 95 95 97 O2 Delivery Room Air Nasal Cannula Nasal Cannula O2 Flow Rate 3.0 3.0 12/16/16 12/16/16 12/16/16 12/16/16 14:35 14:59 17:21 19:10 Temp 97.8 98.1 97.8 98.1 Pulse 56 70 Resp 18 18 B/P 121/54 118/57 Pulse Ox 95 97 97 100 O2 Delivery Room Air Nasal Cannula Nasal Cannula Nasal Cannula O2 Flow Rate 3.0 3.0 3.0 12/16/16 12/16/16 12/16/16 12/16/16 20:00 20:07 20:37 23:00 Temp 98.1 98.1 Pulse 75 Resp 19 18 19 B/P 120/59 Pulse Ox 97 97 99 O2 Delivery Nasal Cannula Nasal Cannula Nasal Cannula Nasal Cannula O2 Flow Rate 3.0 3.0 3.0 3.0 12/16/16 12/17/16 12/17/16 12/17/16 23:02 00:02 03:05 03:56 Temp 97.9 97.9 Pulse 70 Resp 19 18 20 18 B/P 113/54 Pulse Ox 96 99 97 O2 Delivery Nasal Cannula Nasal Cannula Nasal Cannula O2 Flow Rate 3.0 3.0 3.0 3/14/12/17/16 12/17/16 12/17/16 04:56 07:12 08:20 08:21 Temp 97.5 97.5 Pulse 69 69 69 Resp 20 B/P 121/64 121/64 121/64 Pulse Ox 97 99 O2 Delivery Nasal Cannula Nasal Cannula O2 Flow Rate 3.0 4.0 12/17/16 08:23 Resp 16 Pulse Ox 99 O2 Delivery Nasal Cannula O2 Flow Rate 3.0 Intake and Output 12/16/16 12/16/16 12/17/16 15:00 23:00 07:00 Intake Total 220 ml 760 ml 600 ml Output Total 200 ml 675 ml Balance 220 ml 560 ml -75 ml SELENE MARTÍNEZ MD Dec 17, 2016 10:33
[2016-12-17 11:04] LABS: PLT ESTIMATE ADEQUATE (ADEQUATE)
[2016-12-17 11:05] LABS: ANISOCYTOSIS SLIGHT; OVALOCYTES FEW
[2016-12-17 11:22] VITALS: BP 130/66
--- NOTE | 2016-12-17 11:48 | RAD ---
Indication: Hemoptysis. Technique: Axial images and coronal and sagittal reformatted images are provided. Comparison is a chest radiograph from one day earlier. One or more of the following individualized dose reduction techniques were utilized for this examination: 1. Automated exposure control 2. Adjustment of the mA and/or kV according to patient size 3. Use of iterative reconstruction technique Findings: There is mild emphysema. There are bilateral pulmonary nodules noted measuring up to 9 mm in size. Largest are left lower lobe and posterior to the right hilum. Bandlike opacity along with bronchial thickening in the right lower lobe probably corresponds to the area of concern on radiograph. No other consolidation is apparent. There is no pleural effusion. There is no central airway narrowing. There is atheromatous disease in the thoracic aorta. There are postoperative findings of CABG. The heart is not enlarged. Median sternotomy wires are noted. Degenerative changes are noted in the spine. Upper abdomen is notable for cholelithiasis. Abdominal aortic aneurysm beginning at about the level of the diaphragm is partially included measuring up to 4.9 cm AP. Impression: 1. Pulmonary nodules up to 9 mm in size, 3 month follow-up is recommended per [employer]. 2. Bandlike opacity in the right lower lobe along with bronchial wall thickening appears to correspond to the area of concern on chest radiograph. Findings may be infectious or related to scarring. Findings can be reevaluated in 3 months as well. 3. Emphysema.
[2016-12-17 15:16] VITALS: BP 128/64
--- NOTE | 2016-12-17 15:58 | RAD ---
Indication: Left great toe blister. Technique: Grayscale, color-flow, and spectral waveform analysis of both lower extremity arterial systems was performed. No comparison is available. Findings: Waveforms on the right are triphasic proximally and of the runoff is monophasic. Waveforms on the left are triphasic through the superficial femoral artery proximally and monophasic beyond this point. No turbulent flow or high-grade stenosis on grayscale or color imaging is apparent. Mild diffuse plaquing throughout both lower extremities is noted. Right common femoral artery peak systolic velocity is 129 cm/s and the left 106 cm/s. Right profundus systolic velocity is 105 cm/s and the left 171 cm/s. Right superficial femoral artery peak systolic velocity ranged from 99-116 cm/s and the left 103-169 cm/s. Right popliteal artery peak systolic velocity is 111 cm/s and the left 96 cm/s. Impression: Mild plaquing diffusely throughout both lower extremity arterial systems. No focal stenosis on grayscale or color imaging. No elevated velocity to suggest stenosis by ultrasound.
[2016-12-17 19:15] VITALS: BP 145/58
[2016-12-17] MEDS: ATORVASTATIN CALCIUM 10 MG TABLET. PO SCH (20:26)
[2016-12-17 23:15] VITALS: BP 129/59
[2016-12-18] MEDS: MORPHINE SULFATE 2 MG/ML DISP.SYRIN. IV PRN ×4 (00:32→17:51)
[2016-12-18 03:15] VITALS: BP 139/67
[2016-12-18] MEDS: OXYCODONE IR 5 MG TABLET. PO PRN ×5 (04:03→23:40)
[2016-12-18 07:15] VITALS: BP 162/78
[2016-12-18] MEDS: METOPROLOL SUCC 24HR ER 50 MG TAB.ER.24H. PO SCH (08:56)
[2016-12-18] MEDS: CETIRIZINE HCL 10 MG TABLET PO SCH (08:56)
[2016-12-18] MEDS: GUAIFENESIN ER 600 MG TABLET.ER PO SCH ×2 (08:56→19:50)
[2016-12-18] MEDS: buPROPion 100 MG TABLET PO SCH ×2 (08:56→19:51)
[2016-12-18] MEDS: PANTOPRAZOLE 40 MG TABLET. PO SCH ×2 (08:57→19:51)
[2016-12-18] MEDS: SPIRONOLACTONE 25 MG TABLET PO SCH (08:57)
[2016-12-18] MEDS: PREDNISONE 20 MG TABLET PO SCH ×2 (08:57→19:57)
[2016-12-18] MEDS: ASCORBIC ACID 500 MG TABLET PO SCH (08:57)
[2016-12-18] MEDS: AMIODARONE HCL 200 MG TABLET PO SCH (08:57)
[2016-12-18] MEDS: ASPIRIN 81 MG TAB.CHEW PO SCH (08:58)
[2016-12-18] MEDS: FERROUS SULFATE 325 MG TABLET PO SCH ×2 (08:58→19:56)
[2016-12-18 11:05] VITALS: BP 138/65
--- NOTE | 2016-12-18 11:05 | PDOC ---
PULMONARY PROGRESS NOTES Subjective Pt feels better Vitals Vital Signs Date Time Temp Pulse Resp B/P Pulse Ox O2 Delivery O2 Flow Rate FiO2 12/18/16 10:38 16 Nasal Cannula 3.0 12/18/16 09:57 99 12/18/16 08:57 66 162/78 12/18/16 07:15 98.2 98.2 ROS: No Nausea, No Chest Pain, No Abdominal Pain, No Increase Cough Lungs: Clear, Other Cardiovascular: S1 Abdomen: Soft Neuro Exam: Alert Extremities: No Edema Skin: Warm Labs Laboratory Tests Test 12/16/16 13:03 12/17/16 03:38 Troponin I Quantitative 0.035ng/mL (0.000-0.055) White Blood Count 9.3x10^3/uL (4.0-11.0) Red Blood Count 2.65x10^6/uL (4.30-5.70) Hemoglobin 7.8g/dL (13.0-17.5) Hematocrit 23.6% (39.0-53.0) Mean Corpuscular Volume 89fL (79-100) Mean Corpuscular Hemoglobin 30pg (25-35) Mean Corpuscular Hemoglobin Concent 33g/dL (31-37) Red Cell Distribution Width 17.6% (11.5-14.5) Platelet Count 158x10^3/uL (140-400) Neutrophils (%) (Auto) 92% (31-73) Lymphocytes (%) (Auto) 4% (24-48) Monocytes (%) (Auto) 4% (0-9) Eosinophils (%) (Auto) 0% (0-3) Basophils (%) (Auto) 0% (0-3) Neutrophils # (Auto) 8.5x10^3uL (1.8-7.7) Lymphocytes # (Auto) 0.4x10^3/uL (1.0-4.8) Monocytes # (Auto) 0.4x10^3/uL (0.0-1.1) Eosinophils # (Auto) 0.0x10^3/uL (0.0-0.7) Basophils # (Auto) 0.0x10^3/uL (0.0-0.2) Segmented Neutrophils % 81% (35-66) Band Neutrophils % 12% (0-9) Lymphocytes % 5% (24-48) Monocytes % 2% (0-10) Platelet Estimate Adequate (ADEQUATE) Anisocytosis Slight Ovalocytes Few Sodium Level 144mmol/L (136-145) Potassium Level 4.5mmol/L (3.5-5.1) Chloride Level 109mmol/L (98-107) Carbon Dioxide Level 27mmol/L (21-32) Anion Gap 8 (6-14) Blood Urea Nitrogen 38mg/dL (8-26) Creatinine 1.3mg/dL (0.7-1.3) Estimated GFR (Cockcroft-Gault) 54.9 Glucose Level 155mg/dL (70-99) Calcium Level 8.6mg/dL (8.5-10.1) Medications Active Scripts Medications Dose Route/Sig Days Date Category Prednisone 20 Mg Tablet 1 Tab PO BID 12/04/16 Reported Potassium Chloride 20 Meq Tablet.er 20 Meq PO TID 12/04/16 Reported Guaifenesin 600 Mg Tablet.er 600 Mg PO BID 12/04/16 Reported Furosemide 20 Mg Tablet 1 Tab PO DAILY 12/04/16 Reported Albuterol Sulfate Neb Soln (Albuterol Sulfate) 2.5 Mg/3 Ml Vial.neb 2.5 Mg NEB PRN Q2HR PRN 12/04/16 Reported Oxycodone Hcl 10 Mg Tablet 10 Mg PO PRN Q4HRS PRN 11/29/16 Reported Amiodarone Hcl 200 Mg Tablet 1 Tab PO DAILY 11/25/16 Reported Bupropion Hcl 100 Mg Tablet 100 Mg PO BID 11/25/16 Reported Metoprolol Succinate 50 Mg Tab.er.24h 50 Mg PO DAILY 11/25/16 Reported Lisinopril 5 Mg Tablet 1 Tab PO DAILY 11/25/16 Reported Senna-Docusate Sodium Tablet (Sennosides/Docusate Sodium) 1 Each Tablet 1 Each PO PRN BID PRN 11/25/16 Reported Zyrtec (Cetirizine Hcl) 10 Mg Tablet 1 Tab PO DAILY 11/25/16 Reported Benzonatate 100 Mg Capsule 1 Cap PO PRN TID PRN 11/25/16 Reported Ascorbic Acid 250 Mg Tablet 250 Mg PO BID 11/25/16 Reported Eliquis (Apixaban) 5 Mg Tablet 5 Mg PO BID 11/25/16 Reported Protonix (Pantoprazole Sodium) 40 Mg Tablet.dr Arzola Tab PO BID 11/25/16 Reported Ferrous Sulfate 325 Mg Tablet 1 Tab PO BID 11/25/16 Reported Spironolactone 25 Mg Tablet 0.5 Tab PO DAILY 08/13/15 Reported [Duoneb] 08/13/15 Reported [Combivent] 08/13/15 Reported [Proventil] 08/13/15 Reported [Symbicort] 08/13/15 Reported Pravastatin Sodium 10 Mg Tablet 0.5 Tab PO HS 08/13/15 Reported Aspirin 81 Mg Tab.chew 1 Tab PO DAILY 08/13/15 Reported Impression . 1. Abnormal x-rays. 2. Hemoptysis. 3. Acute exacerbation of chronic obstructive pulmonary disease. 4. Acute nonspecific bronchitis. 5. Coronary artery disease status post coronary artery bypass grafting. 6. Chronic respiratory failure. Plan . D/ctoday 1. see report of CT 2. Continue oxygen supplementation. 3. Oral prednisone. 4. Hold off on antibiotics for now. 5. Follow up CT in 3 months Impression: 1. Pulmonary nodules up to 9 mm in size, 3 month follow-up is recommended per Fleischner Society. 2. Bandlike opacity in the right lower lobe along with bronchial wall thickening appears to correspond to the area of concern on chest radiograph. Findings may be infectious or related to scarring. Findings can be reevaluated in 3 months as well. 3. Emphysema. ZURI VINSON MD Dec 18, 2016 11:05
[2016-12-18 15:10] VITALS: BP 140/60
[2016-12-18 15:25] LABS: HEMATOCRIT 27.7 % (39.0-53.0); HEMOGLOBIN 8.9 g/dL (13.0-17.5); RED BLOOD COUNT 3.05 x10^6/uL (4.30-5.70); RED CELL DISTRIBUTION WIDTH 17.1 % (11.5-14.5)
--- NOTE | 2016-12-18 17:42 | PDOC ---
PROGRESS NOTES Chief Complaint Chief Complaint A/P 1. Hemoptysis, present on admission, round opacity in the right lung base. 2. Chronic atrial fibrillation, on oral anticoagulation; chronic obstructive pulmonary disease, and chronic respiratory failure. 3. Hypertension. 4. Coronary artery disease. 5. Chronic back pain. 6. MELLISSA improved. 7. LLE Great toe blood blister, improving. Plan aerial Dopplex LE negative. pain control hold OAC CT chest pending resume lasix and lisinopril DC planning today out pt follow up with Dr Kwok History of Present Illness History of Present Illness no hemoptysis no chest pain no palpitation Vitals Vitals Vital Signs Date Time Temp Pulse Resp B/P Pulse Ox O2 Delivery O2 Flow Rate FiO2 12/18/16 15:41 16 Room Air 3.0 12/18/16 15:10 98.1 73 140/60 97 98.1 Physical Exam General: Alert, Oriented X3 Heart: Normal S1, Normal S2 Lungs: Clear, Other Abdomen: Normal bowel sounds, Soft Skin: Other Labs LABS Laboratory Tests Test 12/18/16 15:10 White Blood Count 12.0x10^3/uL (4.0-11.0) Red Blood Count 3.05x10^6/uL (4.30-5.70) Hemoglobin 8.9g/dL (13.0-17.5) Hematocrit 27.7% (39.0-53.0) Mean Corpuscular Volume 91fL (79-100) Mean Corpuscular Hemoglobin 29pg (25-35) Mean Corpuscular Hemoglobin Concent 32g/dL (31-37) Red Cell Distribution Width 17.1% (11.5-14.5) Platelet Count 194x10^3/uL (140-400) Assessment and Plan Assessmemt and Plan Problems Medical Problems: (1) Hemoptysis Status: Acute (2) Right-sided chest pain Status: Acute Problems: Comment Review of Relevant I have reviewed the following items meka (where applicable) has been applied. Labs Laboratory Tests Test 12/17/16 03:38 12/18/16 15:10 White Blood Count 9.3x10^3/uL (4.0-11.0) 12.0x10^3/uL (4.0-11.0) Red Blood Count 2.65x10^6/uL (4.30-5.70) 3.05x10^6/uL (4.30-5.70) Hemoglobin 7.8g/dL (13.0-17.5) 8.9g/dL (13.0-17.5) Hematocrit 23.6% (39.0-53.0) 27.7% (39.0-53.0) Mean Corpuscular Volume 89fL (79-100) 91fL (79-100) Mean Corpuscular Hemoglobin 30pg (25-35) 29pg (25-35) Mean Corpuscular Hemoglobin Concent 33g/dL (31-37) 32g/dL (31-37) Red Cell Distribution Width 17.6% (11.5-14.5) 17.1% (11.5-14.5) Platelet Count 158x10^3/uL (140-400) 194x10^3/uL (140-400) Neutrophils (%) (Auto) 92% (31-73) Lymphocytes (%) (Auto) 4% (24-48) Monocytes (%) (Auto) 4% (0-9) Eosinophils (%) (Auto) 0% (0-3) Basophils (%) (Auto) 0% (0-3) Neutrophils # (Auto) 8.5x10^3uL (1.8-7.7) Lymphocytes # (Auto) 0.4x10^3/uL (1.0-4.8) Monocytes # (Auto) 0.4x10^3/uL (0.0-1.1) Eosinophils # (Auto) 0.0x10^3/uL (0.0-0.7) Basophils # (Auto) 0.0x10^3/uL (0.0-0.2) Segmented Neutrophils % 81% (35-66) Band Neutrophils % 12% (0-9) Lymphocytes % 5% (24-48) Monocytes % 2% (0-10) Platelet Estimate Adequate (ADEQUATE) Anisocytosis Slight Ovalocytes Few Sodium Level 144mmol/L (136-145) Potassium Level 4.5mmol/L (3.5-5.1) Chloride Level 109mmol/L (98-107) Carbon Dioxide Level 27mmol/L (21-32) Anion Gap 8 (6-14) Blood Urea Nitrogen 38mg/dL (8-26) Creatinine 1.3mg/dL (0.7-1.3) Estimated GFR (Cockcroft-Gault) 54.9 Glucose Level 155mg/dL (70-99) Calcium Level 8.6mg/dL (8.5-10.1) Laboratory Tests Test 12/18/16 15:10 White Blood Count 12.0x10^3/uL (4.0-11.0) Red Blood Count 3.05x10^6/uL (4.30-5.70) Hemoglobin 8.9g/dL (13.0-17.5) Hematocrit 27.7% (39.0-53.0) Mean Corpuscular Volume 91fL (79-100) Mean Corpuscular Hemoglobin 29pg (25-35) Mean Corpuscular Hemoglobin Concent 32g/dL (31-37) Red Cell Distribution Width 17.1% (11.5-14.5) Platelet Count 194x10^3/uL (140-400) Medications Current Medications Acetaminophen (Tylenol) 1,000 mg 1X ONCE PO Last administered on 12/15/16 00: 14; Start 12/15/16 at 23:45; Stop 12/15/16 at 23:46; Status DC Ondansetron HCl (Zofran) 4 mg PRN Q8HRS PRN IV NAUSEA/VOMITING; Start 12/16/16 at 01:15; Stop 12/16/16 at 02:10; Status DC Morphine Sulfate 2 mg PRN Q2HR PRN IV PAIN Last administered on 12/17/16 01:08 ; Start 12/16/16 at 01:15; Stop 12/17/16 at 01:14; Status DC Acetaminophen 650 mg 650 mg PRN Q4HRS PRN PO FEVER; Start 12/16/16 at 01:15; Stop 12/17/16 at 01:14; Status DC Sodium Chloride (Iv Sodium Chloride 0.9% 500ml Bag) 500 ml @ 500 mls/hr 1X ONCE IV Last administered on 12/16/16 02:52; Start 12/16/16 at 01:15; Stop at 02:14; Status DC Albuterol Sulfate (Ventolin Neb Soln) 2.5 mg PRN Q2HR PRN NEB SHORTNESS OF BREATH Last administered on 12/18/16 14:24; Start 12/16/16 at 10:15 Amiodarone HCl (Cordarone) 200 mg DAILY PO Last administered on 12/18/16 08:57 ; Start 12/17/16 at 09:00 Aspirin (Children'S Aspirin) 81 mg DAILY PO Last administered on 12/18/16 08: 58; Start 12/16/16 at 12:00 Benzonatate (Tessalon Perle) 100 mg PRN TID PRN PO COUGH Last administered on 17:54; Start 12/16/16 at 10:15 Bupropion HCl (Wellbutrin) 100 mg BID PO Last administered on 12/18/16 08:56; Start 12/16/16 at 11:30 Cetirizine HCl (Zyrtec) 10 mg DAILY PO Last administered on 12/18/16 08:56; Start 12/16/16 at 11:30 Ferrous Sulfate (Feosol) 325 mg BID PO Last administered on 12/18/16 08:58; Start 12/16/16 at 21:00 Guaifenesin (Mucinex) 600 mg BID PO Last administered on 12/18/16 08:56; Start 12/16/16 at 11:30 Metoprolol Succinate (Toprol Xl) 50 mg DAILY PO Last administered on 12/18/16 08:56; Start 12/16/16 at 11:30 Pantoprazole Sodium (Protonix) 40 mg BID PO Last administered on 12/18/16 08: 57; Start 12/16/16 at 11:30 Prednisone (Prednisone) 20 mg BID PO Last administered on 12/18/16 08:57; Start 12/16/16 at 11:30 Senna/Docusate Sodium (Senna Plus) 1 tab PRN BID PRN PO CONSTIPATION; Start at 10:15 Spironolactone (Aldactone) 25 mg DAILY PO Last administered on 12/18/16 08:57 ; Start 12/16/16 at 12:00 Ascorbic Acid (Vitamin C) 500 mg DAILY PO Last administered on 12/18/16 08:57 ; Start 12/17/16 at 09:00 Oxycodone HCl (Roxicodone) 10 mg PRN Q4HRS PRN PO PAIN Last administered on 14:41; Start 12/16/16 at 11:15 Atorvastatin Calcium (Lipitor) 5 mg QHS PO Last administered on 12/17/16 20:26 ; Start 12/16/16 at 21:00 Morphine Sulfate 1 mg PRN Q2HR PRN IV PAIN SEVRE Last administered on 10:38; Start 12/17/16 at 12:15 Active Scripts Active Reported Prednisone 20 Mg Tablet 1 Tab PO BID Potassium Chloride 20 Meq Tablet.er 20 Meq PO TID Guaifenesin 600 Mg Tablet.er 600 Mg PO BID Furosemide 20 Mg Tablet 1 Tab PO DAILY Albuterol Sulfate Neb Soln (Albuterol Sulfate) 2.5 Mg/3 Ml Vial.neb 2.5 Mg NEB PRN Q2HR PRN Oxycodone Hcl 10 Mg Tablet 10 Mg PO PRN Q4HRS PRN Amiodarone Hcl 200 Mg Tablet 1 Tab PO DAILY Bupropion Hcl 100 Mg Tablet 100 Mg PO BID Metoprolol Succinate 50 Mg Tab.er.24h 50 Mg PO DAILY Lisinopril 5 Mg Tablet 1 Tab PO DAILY Senna-Docusate Sodium Tablet (Sennosides/Docusate Sodium) 1 Each Tablet 1 Each PO PRN BID PRN Zyrtec (Cetirizine Hcl) 10 Mg Tablet 1 Tab PO DAILY Benzonatate 100 Mg Capsule 1 Cap PO PRN TID PRN Ascorbic Acid 250 Mg Tablet 250 Mg PO BID Eliquis (Apixaban) 5 Mg Tablet 5 Mg PO BID Protonix (Pantoprazole Sodium) 40 Mg Tablet.dr 1 Tab PO BID Ferrous Sulfate 325 Mg Tablet 1 Tab PO BID Spironolactone 25 Mg Tablet 0.5 Tab PO DAILY [Duoneb] [Combivent] [Proventil] [Symbicort] Pravastatin Sodium 10 Mg Tablet 0.5 Tab PO HS Aspirin 81 Mg Tab.chew 1 Tab PO DAILY Vitals/I & O Vital Sign - Last 24 Hours 12/17/16 12/17/16 12/17/16 12/17/16 19:15 20:00 20:28 22:25 Temp 98.8 98.8 Pulse 71 Resp 18 24 18 B/P 145/58 Pulse Ox 94 O2 Delivery Nasal Cannula Nasal Cannula Nasal Cannula O2 Flow Rate 4.0 3.0 3.0 12/17/16 12/18/16 12/18/16 12/18/16 23:15 00:32 03:15 04:03 Temp 99.3 98.9 99.3 98.9 Pulse 68 66 Resp 18 18 18 18 B/P 129/59 139/67 Pulse Ox 97 99 O2 Delivery Nasal Cannula Nasal Cannula Nasal Cannula Room Air O2 Flow Rate 2.0 3.0 2.0 12/18/16 12/18/16 12/18/16 12/18/16 06:29 06:59 07:15 08:00 Temp 98.2 98.2 Pulse 66 Resp 20 B/P 162/78 Pulse Ox 99 99 O2 Delivery Nasal Cannula Nasal Cannula Nasal Cannula O2 Flow Rate 3.0 2.0 2.0 12/18/16 12/18/16 12/18/16 12/18/16 08:00 08:56 08:57 08:57 Pulse 66 66 Resp 22 B/P 162/78 162/78 Pulse Ox 99 O2 Delivery Nasal Cannula Nasal Cannula O2 Flow Rate 2.0 2.0 12/18/16 12/18/16 12/18/16 12/18/16 09:57 10:38 11:05 11:08 Temp 97.6 97.6 Pulse 68 Resp 18 16 B/P 138/65 Pulse Ox 99 96 O2 Delivery Nasal Cannula Nasal Cannula Room Air O2 Flow Rate 3.0 2.0 3.0 12/18/16 12/18/16 12/18/16 12/18/16 14:25 14:41 15:10 15:41 Temp 98.1 98.1 Pulse 73 Resp 16 B/P 140/60 Pulse Ox 97 97 O2 Delivery Nasal Cannula Room Air Nasal Cannula Room Air O2 Flow Rate 3.0 3.0 2.0 3.0 Intake and Output 12/17/16 12/17/16 12/18/16 15:00 23:00 07:00 Intake Total 600 ml 900 ml 960 ml Output Total 350 ml 500 ml Balance 600 ml 550 ml 460 ml SELENE MARTÍNEZ MD Dec 18, 2016 17:42
[2016-12-18 19:20] VITALS: BP 158/62
[2016-12-18] MEDS: ATORVASTATIN CALCIUM 10 MG TABLET. PO SCH (19:51)
[2016-12-18 22:59] VITALS: BP 172/84
--- NOTE | 2016-12-22 00:26 | DS ---
DATE OF DISCHARGE: 12/19/2016 DISCHARGE DIAGNOSES: 1. Hemoptysis present on admission, resolved, unclear etiology. Suspect round opacity in the right lung base. As per Pulmonology, no malignancy seen on CAT scan. 2. Chronic atrial fibrillation, on oral anticoagulation. 3. Chronic obstructive pulmonary disease with chronic respiratory failure. 3. Hypertension. 4. Coronary artery disease. 5. Chronic back pain. 6. Acute kidney injury, resolved. BRIEF HOSPITAL COURSE: This is a 66-year-old male patient admitted to the hospital for subjective hemoptysis. Given his history of chronic smoking and oral anticoagulation, he has been admitted to the hospital and serial hemograms have been checked. His symptoms have been improving; however, the patient complains of acute on chronic leg pain and back pains, which has been controlled with oral narcotics. During hospitalization, the patient had a chest CT, which did show 9-mm size pulmonary nodule, which needed further followup as per Pulmonology and maybe [address] is recommended. He had a duplex scan of lower extremity, which is negative for any acute findings and also he had a VQ scan which is low probability for pulmonary embolism. The patient's hemoglobin has been improved and at the time of discharge, his hemoglobin is 8.9 and anticoagulation has been resumed. He was recommended to follow up with Dr. Vicente and primary care doctor at the [facility]. DISCHARGE EXAMINATION: Please see my progress note. DISCHARGE CONDITION: Stable. PROGNOSIS: Guarded. FOLLOWUP: With Dr. Vicente for repeat CAT scan in 3 months. Total time spent for discharge is 35 minutes for patient education, counseling, and coordination of care. SELENE MARTÍNEZ MD DR: JENNY/gilberto JOB#: [id number] / [id number]
== END 2016-12-18 23:50 | disposition home or self-care (01) | DRG 190 ==
LOC: ER 23:06 → 6 SOUTH 12-16 00:59
PROVIDERS: ADMIT Internal Medicine; ATTEND Internal Medicine
DX: J44.1 Chronic obstructive pulmonary disease with (acute) exacerbation (principal); N17.0 Acute kidney failure with tubular necrosis; J96.10 Chronic respiratory failure, unspecified whether with hypoxia or hypercapnia; R04.2 Hemoptysis; J20.9 Acute bronchitis, unspecified; E78.00 Pure hypercholesterolemia, unspecified; I71.4 Abdominal aortic aneurysm, without rupture; E78.5 Hyperlipidemia, unspecified; F17.210 Nicotine dependence, cigarettes, uncomplicated; I11.9 Hypertensive heart disease without heart failure; G89.29 Other chronic pain; I25.10 Atherosclerotic heart disease of native coronary artery without angina pectoris; I48.2 Chronic atrial fibrillation; I50.9 Heart failure, unspecified; Z79.01 Long term (current) use of anticoagulants; Z95.1 Presence of aortocoronary bypass graft; Z99.81 Dependence on supplemental oxygen
CPT/HCPCS: 36415; 71020; 71250; 78582; 80048; 80076; 83880; 84484; 85007; 85027; 85379; 85610; 85730; 87641; 93005; 93925; 94250; 94760; 96374; A9540; A9558; J2270; J7040; J7512; 99285-25

== ENCOUNTER 2017-04-25 15:10 | Observation (INO) | payer MEDICARE ==
[~2017-04-25] VITALS: Ht 177.8 cm; Wt 63.7 kg
[~2017-04-25 15:10] MED LIST changes: +ASPI-630 PO; -ASPI81TA2 PO; +BENZ100C15 PO; -BENZ100C2 PO; -ERGO500012 PO; +ERGO500027 PO; +POLY17PO29 PO; -POLY17PO5 PO
[2017-04-25 17:19] VITALS: BP 142/56
--- NOTE | 2017-04-25 18:09 | PDOC2 ---
CONSULT Date of Consult Date of Consult DATE: 04/25/17 TIME: 17:48 Reason for Consult Reason for Consult: Food impaction. Referring Physician Referring Physician: Dr. Mcknight Source Source: Chart review, Patient History of Present Illness Reason for Visit: 66 y/o male who felt food stick (chicken?) at 10 pm last night. Sent to [facility] this afternoon and ultimately sent here. Not hypersalivating presently, but says can't swallow even water, though no real foreign body sensation at this time, though when present, indicates lower cervical area. H/o intermittent dysphagia in the past and apparently taking pantoprazole daily (he doesn't know ) for diagnosis of GERD. Does recall "balloon dilation" of esophagus sometime in the past, though recalls no details. No history suggestive of Zencker's. Denies prior ulcer, though some information in chart says cauterized ulcer in past; "allergies" listed to some NSAIDs, so maybe this was the issue. No GB, liver or pancreatic disease. Rarely smokes now. No alcohol use currently. ASA and Xarelto listed as home meds from [facility] ER summary. Denies diarrhea, constipation, hematochezia or melena. Wt/appetite recently OK. Usually no nausea or vomiting. Says colonoscopy in past 6 months (?). Can't recall site/ practitioner. Past Medical History Cardiovascular: AFIB, CAD, CHF, HTN, Hyperlipidemia, Other (prior PCI; ischemic cardiomyopathy) Pulmonary: COPD (O2 dependent; here for hemoptysis in the past/CT w/o definite malignancy--no bronch) CENTRAL NERVOUS SYSTEM: CVA (listed in old [facility] records) Heme/Onc: Anemia NOS Musculoskeletal: Osteoarthritis Infectious disease: Other (MRSA positive in the past) Renal/: Chronic renal insuff, Benign prostatic enlarg. Past Surgical History Past Surgical History: Hernia Repair, Total hip replacement Family History Family History: No Significant Social History ALCOHOL: none Drugs: None Current Medications Current Medications [place], oxycodone, potassium, pravastatin, xarelto, lisinopril, metoprolol, ASA, iron sulfate, pantoprazole, cetirizine, ascorbic acid, furosemide, albuterol inhaler, spiriva (from ER summary at [facility]). Allergies Allergies: Coded Allergies: oxycodone (Verified Allergy, Severe, Anaphylaxis, takes OXYCONTIN at home , TOLERATES MORPHINE, 12/17/16) "my throat swells shut" peanut (Verified Allergy, Severe, 11/28/16) venom-honey bee (Verified Allergy, Severe, 11/28/16) Fish Containing Products (Verified Allergy, Intermediate, 11/28/16) bee pollen (Verified Allergy, Intermediate, 11/28/16) propoxyphene (Verified Allergy, Intermediate, 11/28/16) tramadol (Verified Allergy, Intermediate, 11/27/16) TOLERATES OXYCODONE AND MORPHINE Per patient's records at [facility] *CONTACT* (Verified Allergy, Unknown, 11/26/16) mrsa ROS Review of System 10-point review otherwise negative. Physical Exam General: Alert, Oriented X3, Cooperative, No acute distress Lungs: Clear to auscultation, Other (diminished sounds) Heart: Normal S1, Normal S2, No murmurs, Other (irregular rhythm) Abdomen: Normal bowel sounds, Soft, No tenderness, No hepatosplenomegaly, No masses Extremities: No cyanosis, No edema, Other (multiple ecchymoses from phlebotomies) Skin: No significant lesion Neuro: Normal speech, Strength at 5/5 X4 ext, Normal tone, Sensation intact, Cranial nerves 3-12 NL, Reflexes 2+ Psych/Mental Status: Mental status NL, Mood NL MUSCULOSKELETAL: No deformity, No swelling Vitals VITALS Vital Signs Date Time Temp Pulse Resp B/P (MAP) Pulse Ox O2 Delivery O2 Flow Rate FiO2 04/25/17 17:19 98.2 70 16 142/56 (84) 100 Nasal Cannula 4.0 98.2 Labs Labs Pending. Images Images Soft tissue films at [facility] unrevealing. Assessment/Plan Assessment/Plan IMP: Impacted food bolus?? GERD H/o NSAID ulcer? REC: EGD; if food, intervention. --other pending. Thanks. SELENA LINDQUSIT MD Apr 25, 2017 18:09
[2017-04-25] MEDS ORDERED: IV RINGERS,LACTATED 1000ML 1,000 ML IV SCH (18:30)
[2017-04-25] MEDS ORDERED: PROPOFOL 20 ML IV ONE (18:52)
[2017-04-25] MEDS ORDERED: LIDOCAINE 2% PF Vial for OR 5 ML VIAL. ONE (18:52)
--- NOTE | 2017-04-25 19:09 | PDOC4 ---
PROCEDURE Procedure EGD/FB removal (food) IND: Impacted food bolus. Meds: per anesthesia. Findings: E--multiple tertiary contractions. Just ABOVE GE junction, food bolus (chicken ) encountered. Able to capture with snare and remove largest chunk. Smaller pieces able to be pushed into stomach. After removal, circumferential area of erosion/excoriation at site of bolus; no discrete stricture encountered. GE junction at 37cm and w/o stricturing. G--Normal D--normal to second portion. Alyssa. well. IMP: Impacted food bolus, resolved. Likely presbyesophagus, with bolus impaction from spasm/larger than tolerated bolus (though bolus only ~50F). REC: Continue PPI po. OK to feed (soft diet)/observe overnight. Home in AM OK with me. Thanks. SELENA LINDQUIST MD Apr 25, 2017 19:09
[2017-04-25 19:59] VITALS: BP 145/74
[2017-04-25] MEDS: PANTOPRAZOLE 40 MG TABLET.DR. PO SCH (20:31)
[2017-04-25] MEDS ORDERED: MAG HYDROX/ALUMINUM HYD/SIMETH 30 ML ORAL.SUSP PO PRN (21:00)
[2017-04-25] MEDS ORDERED: ONDANSETRON PF 4 MG/2 ML VIAL. IV PRN (21:00)
[2017-04-25 23:00] VITALS: BP 150/56
[2017-04-26 03:59] VITALS: BP 107/56
[2017-04-26 07:00] VITALS: BP 125/65
[2017-04-26] MEDS: PANTOPRAZOLE 40 MG TABLET.DR. PO SCH (08:52)
[2017-04-26 11:00] VITALS: BP 100/56
--- NOTE | 2017-04-26 12:36 | PDOC ---
G I PROGRESS NOTE Reason for Follow-up Impacted food bolus Subjective No complaints; would love to go home. Physical Exam Abdomen benign. Review of Relevant I have reviewed the following items meka (where applicable) has been applied. Medications Current Medications Ringer's Solution 1,000 ml @ 30 mls/hr Q24H IV ; Start 04/25/17 at 18:30; Stop 04/25/17 at 18:50; Status DC Propofol 20 ml @ As Directed STK-MED ONCE IV ; Start 04/25/17 at 18:52; Stop at 18:53; Status DC Lidocaine HCl (Lidocaine Pf 2% Vial) 5 ml STK-MED ONCE .ROUTE ; Start 04/25/17 at 18:52; Stop 04/25/17 at 18:53; Status DC Pantoprazole Sodium (Protonix) 40 mg DAILYAC PO Last administered on 04/26/17 08:52; Start 04/25/17 at 20:00 Ondansetron HCl (Zofran) 4 mg PRN Q6HRS PRN IV NAUSEA/VOMITING; Start 04/25/17 at 21:00 Al Hydroxide/Mg Hydroxide (Mylanta Plus Xs) 30 ml PRN Q3HRS PRN PO HEARTBURN / GAS; Start 04/25/17 at 21:00 Oxycodone HCl (Roxicodone) 30 mg PRN Q6HRS PRN PO SEVERE PAIN Last administered on 04/26/17 08:53; Start 04/25/17 at 21:00 Active Scripts Active Reported Prednisone 20 Mg Tablet 1 Tab PO BID Potassium Chloride 20 Meq Tablet.er 20 Meq PO TID Guaifenesin 600 Mg Tablet.er 600 Mg PO BID Furosemide 20 Mg Tablet 1 Tab PO DAILY Albuterol Sulfate Neb Soln (Albuterol Sulfate) 2.5 Mg/3 Ml Vial.neb 2.5 Mg NEB PRN Q2HR PRN Oxycodone Hcl 10 Mg Tablet 10 Mg PO PRN Q4HRS PRN Amiodarone Hcl 200 Mg Tablet 1 Tab PO DAILY Bupropion Hcl 100 Mg Tablet 100 Mg PO BID Metoprolol Succinate 50 Mg Tab.er.24h 50 Mg PO DAILY Lisinopril 5 Mg Tablet 1 Tab PO DAILY Senna-Docusate Sodium Tablet (Sennosides/Docusate Sodium) 1 Each Tablet 1 Each PO PRN BID PRN Zyrtec (Cetirizine Hcl) 10 Mg Tablet 1 Tab PO DAILY Benzonatate 100 Mg Capsule 1 Cap PO PRN TID PRN Ascorbic Acid 250 Mg Tablet 250 Mg PO BID Eliquis (Apixaban) 5 Mg Tablet 5 Mg PO BID Protonix (Pantoprazole Sodium) 40 Mg Tablet.dr 1 Tab PO BID Ferrous Sulfate 325 Mg Tablet 1 Tab PO BID Spironolactone 25 Mg Tablet 0.5 Tab PO DAILY [Duoneb] [Combivent] [Proventil] [Symbicort] Pravastatin Sodium 10 Mg Tablet 0.5 Tab PO HS Aspirin 81 Mg Tab.chew 1 Tab PO DAILY Vitals/I & O Vital Sign - Last 24 Hours 04/25/17 04/25/17 04/25/17 04/25/17 16:30 17:19 18:30 18:31 Temp 98.2 98.2 98.2 98.2 Pulse 70 70 Resp 16 B/P (MAP) 142/56 (84) Pulse Ox 100 100 O2 Delivery Nasal Cannula Nasal Cannula Nasal Cannula O2 Flow Rate 4.0 4.0 4.0 04/25/17 04/25/17 04/25/17 04/25/17 19:05 19:20 19:30 19:59 Temp 97.9 97.9 98.2 97.9 97.9 98.2 Pulse 60 57 61 66 Resp 16 18 20 18 B/P (MAP) 116/58 144/67 132/62 145/74 (97) Pulse Ox 97 98 93 100 O2 Delivery Nasal Cannula Nasal Cannula Nasal Cannula Nasal Cannula O2 Flow Rate 4.0 04/25/17 04/25/17 04/25/17 04/26/17 20:22 23:00 23:42 02:56 Temp 97.9 97.9 Pulse 66 Resp 18 20 B/P (MAP) 150/56 (87) Pulse Ox 100 100 O2 Delivery Nasal Cannula Nasal Cannula Nasal Cannula Nasal Cannula O2 Flow Rate 4.0 4.0 4.0 4.0 04/26/17 04/26/17 04/26/17 04/26/17 03:11 03:59 04:04 07:00 Temp 98.4 97.6 98.4 97.6 Pulse 60 61 Resp 18 18 18 B/P (MAP) 107/56 (73) 125/65 (85) Pulse Ox 100 96 O2 Delivery Nasal Cannula Nasal Cannula Nasal Cannula O2 Flow Rate 4.0 4.0 4.0 04/26/17 04/26/17 04/26/17 04/26/17 08:00 08:53 10:01 11:00 Temp 98.8 98.8 Pulse 57 Resp 20 18 B/P (MAP) 100/56 (71) Pulse Ox 96 96 100 O2 Delivery Nasal Cannula Nasal Cannula Nasal Cannula Nasal Cannula O2 Flow Rate 4.0 4.0 4.0 4.0 Intake and Output 04/25/17 04/25/17 04/26/17 15:00 23:00 07:00 Intake Total 120 ml 480 ml Output Total 1200 ml Balance -1080 ml 480 ml Assessment Impacted food bolus, resolved. Presbyesophagus. Plan of Care Note OK to discharge from my standpoint. SELENA LINDQUIST MD Apr 26, 2017 12:36
--- NOTE | 2017-04-27 02:45 | SSS ---
ADMIT DATE: 04/26/2017 CHIEF COMPLAINT: Esophageal food impaction. HISTORY OF PRESENT ILLNESS: The patient is a 66-year-old gentleman who was eating a chicken dinner with his family at 10:00 p.m. last night. He is edentulous. He felt a piece of chicken sliding down his throat prematurely and it unfortunately lodged in his esophagus. He was unable to push it down with fluids. He presented to [facility] initially, but attempts there in dislodging the food bolus were unsuccessful and he was referred to [facility] for GI evaluation. PAST MEDICAL HISTORY: CAD, CHF, atrial fibrillation, hypertension, hyperlipidemia, COPD with O2 dependence, history of CVA, osteoarthritis, anemia, BPH, chronic renal insufficiency. FAMILY HISTORY: Unknown to the patient. SOCIAL HISTORY: Lives with his daughter and her family. Quit smoking. Denies any ongoing alcohol or drug use. ALLERGIES: MULTIPLE INCLUDING OXYCODONE, PEANUT, FISH, BEE POLLEN AND VENOM, PROPOXYPHENE, TRAMADOL. MEDICATIONS: MAR reconciled with home medications. REVIEW OF SYSTEMS: Essentially negative as per HPI. He is able to swallow his saliva, but does not tolerate any fluid. Denies any obstructive symptoms at this time. Denies any chest pain. Shortness of breath is essentially at baseline. Rest of organ system review is negative. PHYSICAL EXAMINATION: VITAL SIGNS: Showed a blood pressure of 142/56, heart rate of 70, respiratory rate at 16. He is satting 100% on 4 liters by nasal cannula. GENERAL: This is a slim 66-year-old gentleman, alert and oriented, in no acute distress. HEENT: Shows no scleral icterus. NECK: Supple without any lymphadenopathy. LUNGS: Clear with diminished breath sounds throughout. HEART: Slightly tachycardic with irregular rhythm. ABDOMEN: Positive bowel sounds, soft, nontender. EXTREMITIES: Show no edema, no clubbing, no cyanosis. SKIN: Warm, soft and dry, multiple ecchymoses with paper-thin skin over his upper extremities. LABORATORY DATA: From [facility] were reviewed. Anemia with hemoglobin in the 8 range. Chemistries essentially uneventful. HOSPITAL COURSE: The patient was admitted for a GI evaluation and retraction of his food bolus. Dr. Scales took him for EGD on the evening of 04/25/2017. Food bolus was dislodged without any difficulties. The patient felt much improved and was able to eat and drink without difficulties. As the hour of the night was advanced, he decided to remain in the hospital overnight. No further issues arose. His home medications were continued, especially pain medications with oxycodone. He was stable for discharge the following morning. DISCHARGE DATE: 04/26/2017 DISCHARGE DIAGNOSIS: Esophageal food impaction. DISCHARGE DISPOSITION: To home. DISCHARGE CONDITION: Improved. DISCHARGE MEDICATIONS: Same as at admit. DISCHARGE INSTRUCTIONS: The patient will follow up with PCP in 1-[address] weeks. MULU PINK MD DR: ROBERT/nts JOB#: [id number] / [id number] PONCHO
== END 2017-04-26 14:45 | disposition home or self-care (01) ==
LOC: 5 SOUTH 16:31
PROVIDERS: ADMIT Internal Medicine Hematology & Oncology; ATTEND Internal Medicine Hematology & Oncology
DX: T18.128A Food in esophagus causing other injury, initial encounter (principal); I13.0 Hypertensive heart and chronic kidney disease with heart failure and stage 1 through stage 4 chronic kidney disease, or unspecified chronic kidney disease; I50.9 Heart failure, unspecified; N18.9 Chronic kidney disease, unspecified; J44.9 Chronic obstructive pulmonary disease, unspecified; I48.91 Unspecified atrial fibrillation; I25.10 Atherosclerotic heart disease of native coronary artery without angina pectoris; E78.5 Hyperlipidemia, unspecified; N40.0 Benign prostatic hyperplasia without lower urinary tract symptoms; K21.9 Gastro-esophageal reflux disease without esophagitis; Z86.73 Personal history of transient ischemic attack (TIA), and cerebral infarction without residual deficits; Z98.61 Coronary angioplasty status; Z99.81 Dependence on supplemental oxygen; Z96.649 Presence of unspecified artificial hip joint
CPT/HCPCS: 43247; G0378; G0379; J2001; J2704; C1757

== ENCOUNTER 2017-11-05 05:14 | Inpatient (IN) | payer MEDICARE ==
[2017-11-05] MEDS ORDERED: IPRATRPIUM/ALBUTEROL 0.5/2.5MG 3 ML NEBU. (05:20)
[2017-11-05] MEDS: IPRATRPIUM/ALBUTEROL 0.5/2.5MG 3 ML NEBU. NEB ×4 (05:30→23:51)
[2017-11-05] MEDS ORDERED: 0.9 % SODIUM CHLORIDE 10 ML DISP.SYRIN. IV (05:30)
[2017-11-05 05:46] LABS: BASO % 0 % (0-3); EOS % 0 % (0-3); HEMATOCRIT 29.9 % (39.0-53.0); HEMOGLOBIN 9.7 g/dL (13.0-17.5); LYMPH # 0.4 x10^3/uL (1.0-4.8); LYMPH % 5 % (24-48); MEAN CORPUSCULAR HEMOGLOBIN 29 pg (25-35); MEAN CORPUSCULAR HGB CONC 33 g/dL (31-37); MEAN CORPUSCULAR VOLUME 89 fL (79-100); MONO # 0.4 x10^3/uL (0.0-1.1); MONO % 5 % (0-9); NEUT # 7.7 x10^3uL (1.8-7.7); NEUT % 90 % (31-73); PLATELET COUNT 128 x10^3/uL (140-400); RED BLOOD COUNT 3.34 x10^6/uL (4.30-5.70); RED CELL DISTRIBUTION WIDTH 18.7 % (11.5-14.5); WHITE BLOOD COUNT 8.6 x10^3/uL (4.0-11.0)
[2017-11-05 05:51] LABS: ADD MAN DIFF? YES
[2017-11-05 05:57] LABS: ANION GAP 6 (6-14); BLOOD UREA NITROGEN 33 mg/dL (8-26); BUN/CREATININE RATIO 37 (6-20); CALCIUM 9.1 mg/dL (8.5-10.1); CARBON DIOXIDE 37 mmol/L (21-32); CHLORIDE 100 mmol/L (98-107); CREATININE 0.9 mg/dL (0.7-1.3); GFR 83.9; GLUCOSE 99 mg/dL (70-99); POTASSIUM 4.3 mmol/L (3.5-5.1); SODIUM 143 mmol/L (136-145)
[2017-11-05 06:01] LABS: ALBUMIN 2.9 g/dL (3.4-5.0); ALBUMIN/GLOBULIN RATIO 0.9 (1.0-1.7); ALK PHOS 108 U/L (46-116); ALT (SGPT) 15 U/L (16-63); AST (SGOT) 12 U/L (15-37); LIPASE 52 U/L (73-393); TOTAL BILIRUBIN 0.6 mg/dL (0.2-1.0)
[2017-11-05 06:03] LABS: BASE EXCESS COOX 12 mmol/L (-3-3); CARBON MONOXIDE 0.4 % (0.0-1.9); HCO3 COOX 37 mmol/L (21-28); METHEMOGLOBIN 0.4 % (0.0-1.9); OXYHEMOGLOBIN 87.6 %; PCO2 COOX 51 mmHg (35-46); PH COOX 7.48 (7.35-7.45); PO2 COOX 53 mmHg (65-108); SAT O2 COOX 88 % (92-99); TOTAL HEMOGLOBIN 9.9 g/dL
[2017-11-05 06:04] LABS: TROPONINI 0.042 ng/mL (0.000-0.055)
[2017-11-05] MEDS: fentaNYL PF VIAL 100 MCG/2 ML VIAL IV ×2 (06:05→20:25)
[2017-11-05 06:09] LABS: CKMB MASS 2.2 ng/mL (0.0-3.6); CREATINE KINASE 20 U/L (39-308)
[2017-11-05 06:09] LABS: NT-PRO BNP 1830 pg/mL (0-124)
[2017-11-05] MEDS: VANCOMYCIN 1.5 GM in IV DEXTROSE 5 %-0.2 % NACL 500 ML IV (06:22)
[2017-11-05 06:38] LABS: D-DIMER 3.44 ug/mlFEU (0.00-0.50)
[2017-11-05] MEDS: VANCOMYCIN PER PHARMACY MC (06:40)
[2017-11-05] MEDS ORDERED: CONTRAST GIVEN MC (07:15)
[2017-11-05 09:07] LABS: TROPONINI 0.053 ng/mL (0.000-0.055)
[2017-11-05 09:56] LABS: % BANDS 5 % (0-9); % LYMPHS 3 % (24-48); % MONOS 8 % (0-10); % SEGS 84 % (35-66); PLT ESTIMATE ADEQUATE (ADEQUATE)
[2017-11-05 11:29] LABS: TROPONINI 0.045 ng/mL (0.000-0.055)
[2017-11-05] MEDS: IOHEXOL 300 MG/ML 100ML VIAL. IV (11:34)
[2017-11-05] MEDS ORDERED: ALBUTEROL SULFATE 2.5 MG/3 ML NEBU. NEB (11:45)
[2017-11-05] MEDS ORDERED: BENZONATATE 100 MG CAPSULE. PO (12:30)
[2017-11-05] MEDS: APIXABAN 5 MG TABLET. PO ×2 (14:11→21:00)
[2017-11-05] MEDS: FERROUS SULFATE 325 MG TABLET. PO ×2 (14:11→21:00)
[2017-11-05] MEDS: AMIODARONE HCL 200 MG TABLET. PO (14:11)
[2017-11-05] MEDS: SPIRONOLACTONE 25 MG TABLET PO (14:11)
[2017-11-05] MEDS: ASPIRIN CHEWABLE 81 MG TABLET. PO (14:11)
[2017-11-05] MEDS: FUROSEMIDE 20 MG TABLET PO (14:11)
[2017-11-05] MEDS: LISINOPRIL 5 MG TABLET. PO (14:11)
[2017-11-05] MEDS: CETIRIZINE HCL 10 MG TABLET. PO (14:12)
[2017-11-05] MEDS: PANTOPRAZOLE 40 MG TABLET.DR. PO ×2 (14:12→16:35)
[2017-11-05] MEDS: METOPROLOL SUCC 24HR ER 50 MG TAB.ER.24H. PO (14:12)
[2017-11-05] MEDS: POTASSIUM CHLORIDE 20 MEQ TABLET.ER. PO (14:12)
[2017-11-05] MEDS: buPROPion 100 MG TABLET PO ×2 (14:12→21:00)
[2017-11-05] MEDS: ASCORBIC ACID 500 MG TABLET PO ×2 (14:12→21:00)
[2017-11-05] MEDS: methylPREDNISolone SOD SUCC PF 125 MG/2 ML VIAL. IV ×2 (14:21→21:48)
[2017-11-05] MEDS: MORPHINE SULFATE 2 MG/ML DISP.SYRIN. IV ×2 (14:26→17:34)
[2017-11-05] MEDS ORDERED: predniSONE 20 MG TABLET PO (21:00)
[2017-11-05] MEDS: ATORVASTATIN CALCIUM 10 MG TABLET. PO (21:00)
[2017-11-05] MEDS: VANCOMYCIN 1 GM in IV NORMAL SALINE 250ML 250 ML IV (21:52)
[2017-11-06] MEDS: fentaNYL PF VIAL 100 MCG/2 ML VIAL IV (00:24)
[2017-11-06] MEDS: IPRATRPIUM/ALBUTEROL 0.5/2.5MG 3 ML NEBU. NEB ×6 (03:50→23:18)
[2017-11-06 04:29] LABS: ADD MAN DIFF? NO
[2017-11-06 04:45] LABS: BASO % 0 % (0-3); EOS % 0 % (0-3); HEMATOCRIT 29.3 % (39.0-53.0); HEMOGLOBIN 9.5 g/dL (13.0-17.5); LYMPH # 0.3 x10^3/uL (1.0-4.8); LYMPH % 4 % (24-48); MEAN CORPUSCULAR HEMOGLOBIN 29 pg (25-35); MEAN CORPUSCULAR HGB CONC 33 g/dL (31-37); MEAN CORPUSCULAR VOLUME 89 fL (79-100); MONO # 0.1 x10^3/uL (0.0-1.1); MONO % 2 % (0-9); NEUT % 95 % (31-73); PLATELET COUNT 133 x10^3/uL (140-400); RED BLOOD COUNT 3.28 x10^6/uL (4.30-5.70); RED CELL DISTRIBUTION WIDTH 18.5 % (11.5-14.5); WHITE BLOOD COUNT 7.4 x10^3/uL (4.0-11.0)
[2017-11-06 04:48] LABS: ANION GAP 9 (6-14); BLOOD UREA NITROGEN 30 mg/dL (8-26); CALCIUM 9.1 mg/dL (8.5-10.1); CARBON DIOXIDE 33 mmol/L (21-32); CHLORIDE 101 mmol/L (98-107); CREATININE 0.8 mg/dL (0.7-1.3); GFR 95.8; GLUCOSE 150 mg/dL (70-99); POTASSIUM 4.1 mmol/L (3.5-5.1); SODIUM 143 mmol/L (136-145)
[2017-11-06 04:51] LABS: RETIC COUNT 1.8 % (0.5-2.5)
[2017-11-06 04:52] LABS: % SAT IRON 15 % (15-34); IRON,SERUM 37 ug/dL (65-175)
[2017-11-06] MEDS: MORPHINE SULFATE 2 MG/ML DISP.SYRIN. IV ×8 (05:35→22:37)
[2017-11-06] MEDS: VANCOMYCIN 1 GM in IV NORMAL SALINE 250ML 250 ML IV ×2 (06:06→22:38)
[2017-11-06] MEDS ORDERED: PANTOPRAZOLE 40 MG TABLET.DR. PO (07:30)
[2017-11-06] MEDS: PANTOPRAZOLE 40 MG TABLET.DR. PO ×2 (07:30→17:50)
[2017-11-06] MEDS: POTASSIUM CHLORIDE 20 MEQ TABLET.ER. PO ×3 (07:40→16:11)
[2017-11-06] MEDS: methylPREDNISolone SOD SUCC PF 125 MG/2 ML VIAL. IV ×2 (08:30→21:26)
[2017-11-06 08:45] LABS: POC GLUCOSE 123 mg/dL (70-99)
[2017-11-06] MEDS ORDERED: ENOXAPARIN 40 MG/0.4 ML SYRINGE. SQ (09:00)
[2017-11-06] MEDS: VANCOMYCIN PER PHARMACY MC ×2 (09:43→19:18)
[2017-11-06] MEDS ORDERED: DEXTROSE 50% 25 GM / 50ML DISP.SYRIN. IV (12:45)
[2017-11-06] MEDS: BARIUM SULFATE 60% 355 ML SUSP PO (14:00)
[2017-11-06 14:30] LABS: MRSA BY PCR Positive (Negative)
[2017-11-06 14:44] LABS: VITAMIN-B12 428 pg/mL (247-911)
[2017-11-06 14:44] LABS: FOLATE 15.26 ng/ml (3.2-20.0)
[2017-11-06] MEDS: BARIUM SULFATE 340 GM SUSPENSION. PO (15:16)
[2017-11-06] MEDS: oxyCODONE IR 5 MG TABLET PO ×2 (16:03→21:57)
[2017-11-06] MEDS: ASPIRIN CHEWABLE 81 MG TABLET. PO (16:04)
[2017-11-06] MEDS: LISINOPRIL 5 MG TABLET. PO (16:04)
[2017-11-06] MEDS: METOPROLOL SUCC 24HR ER 50 MG TAB.ER.24H. PO (16:04)
[2017-11-06] MEDS: SPIRONOLACTONE 25 MG TABLET PO (16:05)
[2017-11-06] MEDS: AMIODARONE HCL 200 MG TABLET. PO (16:05)
[2017-11-06] MEDS: CETIRIZINE HCL 10 MG TABLET. PO (16:10)
[2017-11-06] MEDS: buPROPion 100 MG TABLET PO ×2 (16:10→21:26)
[2017-11-06] MEDS: FERROUS SULFATE 325 MG TABLET. PO ×2 (16:10→21:27)
[2017-11-06] MEDS: LACTOBACILLUS RHAMNOSUS GG 1 CAPSULE. PO ×2 (16:10→21:26)
[2017-11-06] MEDS: ASCORBIC ACID 500 MG TABLET PO ×2 (16:11→21:26)
[2017-11-06] MEDS: FUROSEMIDE 20 MG TABLET PO (16:17)
[2017-11-06] MEDS ORDERED: oxyCODONE IR 5 MG TABLET PO (17:45)
[2017-11-06] MEDS: INSULIN ASPART 300 UNITS/3 ML INSULN.PEN SQ (18:00)
[2017-11-06 18:47] LABS: VANC TR 22.9 mcg/mL (10.0-20.0)
[2017-11-06 20:48] LABS: POC GLUCOSE 246 mg/dL (70-99)
[2017-11-06] MEDS: ATORVASTATIN CALCIUM 10 MG TABLET. PO (21:26)
[2017-11-07] MEDS: MORPHINE SULFATE 2 MG/ML DISP.SYRIN. IV ×3 (01:16→05:31)
[2017-11-07] MEDS: IPRATRPIUM/ALBUTEROL 0.5/2.5MG 3 ML NEBU. NEB ×6 (04:00→23:55)
[2017-11-07] MEDS ORDERED: CONTRAST GIVEN MC (07:30)
[2017-11-07] MEDS: IOHEXOL 300 MG/ML 100ML VIAL. IV (07:30)
[2017-11-07] MEDS: INSULIN ASPART 300 UNITS/3 ML INSULN.PEN SQ ×4 (08:00→21:34)
[2017-11-07 08:10] LABS: POC GLUCOSE 198 mg/dL (70-99)
[2017-11-07] MEDS: METOPROLOL SUCC 24HR ER 50 MG TAB.ER.24H. PO (08:45)
[2017-11-07] MEDS: buPROPion 100 MG TABLET PO ×2 (08:45→21:20)
[2017-11-07] MEDS: methylPREDNISolone SOD SUCC PF 125 MG/2 ML VIAL. IV ×2 (08:45→21:18)
[2017-11-07] MEDS: ASPIRIN CHEWABLE 81 MG TABLET. PO (08:45)
[2017-11-07] MEDS: AMIODARONE HCL 200 MG TABLET. PO (08:46)
[2017-11-07] MEDS: FERROUS SULFATE 325 MG TABLET. PO ×2 (08:46→21:19)
[2017-11-07] MEDS: LISINOPRIL 5 MG TABLET. PO (08:46)
[2017-11-07] MEDS: LACTOBACILLUS RHAMNOSUS GG 1 CAPSULE. PO ×2 (08:46→21:20)
[2017-11-07] MEDS: CETIRIZINE HCL 10 MG TABLET. PO (08:47)
[2017-11-07] MEDS: FUROSEMIDE 20 MG TABLET PO (08:47)
[2017-11-07] MEDS: PANTOPRAZOLE 40 MG TABLET.DR. PO ×2 (08:47→15:55)
[2017-11-07] MEDS: VANCOMYCIN PER PHARMACY MC (08:47)
[2017-11-07] MEDS: ASCORBIC ACID 500 MG TABLET PO ×2 (08:47→21:18)
[2017-11-07] MEDS: POTASSIUM CHLORIDE 20 MEQ TABLET.ER. PO ×3 (08:47→15:55)
[2017-11-07] MEDS: fentaNYL PF VIAL 100 MCG/2 ML VIAL IV ×3 (08:48→22:25)
[2017-11-07] MEDS: SPIRONOLACTONE 25 MG TABLET PO (09:00)
[2017-11-07 10:36] LABS: ANION GAP 6 (6-14); BLOOD UREA NITROGEN 38 mg/dL (8-26); CALCIUM 8.8 mg/dL (8.5-10.1); CARBON DIOXIDE 33 mmol/L (21-32); CHLORIDE 102 mmol/L (98-107); GFR 74.1; GLUCOSE 180 mg/dL (70-99); POTASSIUM 4.3 mmol/L (3.5-5.1); SODIUM 141 mmol/L (136-145)
[2017-11-07 11:48] LABS: POC GLUCOSE 161 mg/dL (70-99)
[2017-11-07] MEDS: IV RINGERS,LACTATED 1000ML 1,000 ML IV ×2 (14:00)
[2017-11-07] MEDS ORDERED: PROPOFOL 20 ML IV (14:16)
[2017-11-07] MEDS: cefTRIAXone IV Push 1 GM VIAL. IVP (14:27)
[2017-11-07] MEDS: IV NORMAL SALINE 1000ML BAG 1,000 ML IV (15:00)
[2017-11-07] MEDS: oxyCODONE IR 5 MG TABLET PO ×2 (15:58→21:25)
[2017-11-07] MEDS: VANCOMYCIN 1 GM in IV NORMAL SALINE 250ML 250 ML IV (15:58)
[2017-11-07 16:36] LABS: POC GLUCOSE 100 mg/dL (70-99)
[2017-11-07 21:12] LABS: POC GLUCOSE 385 mg/dL (70-99)
[2017-11-07 21:12] LABS: POC GLUCOSE 379 mg/dL (70-99)
[2017-11-07] MEDS: ATORVASTATIN CALCIUM 10 MG TABLET. PO (21:20)
[2017-11-08] MEDS: oxyCODONE IR 5 MG TABLET PO ×4 (03:14→20:55)
[2017-11-08] MEDS: IV RINGERS,LACTATED 1000ML 1,000 ML IV ×2 (03:20)
[2017-11-08 03:41] LABS: POC GLUCOSE 164 mg/dL (70-99)
[2017-11-08] MEDS: IPRATRPIUM/ALBUTEROL 0.5/2.5MG 3 ML NEBU. NEB ×5 (03:46→19:45)
[2017-11-08] MEDS: IV NORMAL SALINE 1000ML BAG 1,000 ML IV ×2 (04:20→17:40)
[2017-11-08] MEDS: fentaNYL PF VIAL 100 MCG/2 ML VIAL IV ×4 (05:27→22:30)
[2017-11-08 08:23] LABS: POC GLUCOSE 154 mg/dL (70-99)
[2017-11-08] MEDS: LISINOPRIL 5 MG TABLET. PO (08:39)
[2017-11-08] MEDS: PANTOPRAZOLE 40 MG TABLET.DR. PO ×2 (08:39→17:17)
[2017-11-08] MEDS: ASCORBIC ACID 500 MG TABLET PO ×2 (08:39→20:54)
[2017-11-08] MEDS: CETIRIZINE HCL 10 MG TABLET. PO (08:39)
[2017-11-08] MEDS: buPROPion 100 MG TABLET PO ×2 (08:40→20:54)
[2017-11-08] MEDS: ASPIRIN CHEWABLE 81 MG TABLET. PO (08:40)
[2017-11-08] MEDS: AMIODARONE HCL 200 MG TABLET. PO (08:40)
[2017-11-08] MEDS: LACTOBACILLUS RHAMNOSUS GG 1 CAPSULE. PO ×2 (08:40→20:54)
[2017-11-08] MEDS: METOPROLOL SUCC 24HR ER 50 MG TAB.ER.24H. PO (08:41)
[2017-11-08] MEDS: FERROUS SULFATE 325 MG TABLET. PO ×2 (08:41→20:54)
[2017-11-08] MEDS: SPIRONOLACTONE 25 MG TABLET PO (08:41)
[2017-11-08] MEDS: POTASSIUM CHLORIDE 20 MEQ TABLET.ER. PO ×3 (08:41→16:30)
[2017-11-08] MEDS: FUROSEMIDE 20 MG TABLET PO (08:42)
[2017-11-08] MEDS: methylPREDNISolone SOD SUCC PF 125 MG/2 ML VIAL. IV (08:43)
[2017-11-08] MEDS: INSULIN ASPART 300 UNITS/3 ML INSULN.PEN SQ ×3 (08:54→17:23)
[2017-11-08 10:13] LABS: ANION GAP 7 (6-14); BLOOD UREA NITROGEN 39 mg/dL (8-26); CALCIUM 8.7 mg/dL (8.5-10.1); CARBON DIOXIDE 30 mmol/L (21-32); CHLORIDE 102 mmol/L (98-107); GFR 74.1; GLUCOSE 203 mg/dL (70-99); SODIUM 139 mmol/L (136-145)
[2017-11-08 10:15] LABS: POTASSIUM 5.4 mmol/L (3.5-5.1)
[2017-11-08 11:23] LABS: POC GLUCOSE 261 mg/dL (70-99)
[2017-11-08] MEDS: VANCOMYCIN 1 GM in IV NORMAL SALINE 250ML 250 ML IV (11:47)
[2017-11-08] MEDS: VANCOMYCIN PER PHARMACY MC (12:18)
[2017-11-08] MEDS: cefTRIAXone IV Push 1 GM VIAL. IVP (12:39)
[2017-11-08] MEDS: SENNOSIDES/DOCUSATE 8.6/50MG TABLET. PO (14:57)
[2017-11-08 16:02] LABS: POC GLUCOSE 231 mg/dL (70-99)
[2017-11-08] MEDS: ATORVASTATIN CALCIUM 10 MG TABLET. PO (20:54)
[2017-11-08 21:24] LABS: POC GLUCOSE 222 mg/dL (70-99)
[2017-11-09 01:07] LABS: HEMOGLOBIN A1C 5.4 % (4.8-5.6)
[2017-11-09] MEDS: fentaNYL PF VIAL 100 MCG/2 ML VIAL IV ×3 (02:16→17:57)
[2017-11-09] MEDS: oxyCODONE IR 5 MG TABLET PO ×4 (04:29→21:49)
[2017-11-09 05:55] LABS: VANC TR 22.9 mcg/mL (10.0-20.0)
[2017-11-09] MEDS: VANCOMYCIN PER PHARMACY MC (06:12)
[2017-11-09] MEDS: IV NORMAL SALINE 1000ML BAG 1,000 ML IV (07:00)
[2017-11-09] MEDS: POTASSIUM CHLORIDE 20 MEQ TABLET.ER. PO ×3 (07:30→16:30)
[2017-11-09] MEDS: IPRATRPIUM/ALBUTEROL 0.5/2.5MG 3 ML NEBU. NEB ×5 (08:00→19:55)
[2017-11-09] MEDS: INSULIN ASPART 300 UNITS/3 ML INSULN.PEN SQ ×3 (08:00→17:04)
[2017-11-09] MEDS: AMIODARONE HCL 200 MG TABLET. PO (08:03)
[2017-11-09] MEDS: SPIRONOLACTONE 25 MG TABLET PO (08:03)
[2017-11-09] MEDS: buPROPion 100 MG TABLET PO ×2 (08:03→20:16)
[2017-11-09] MEDS: PANTOPRAZOLE 40 MG TABLET.DR. PO ×2 (08:03→16:10)
[2017-11-09] MEDS: ASPIRIN CHEWABLE 81 MG TABLET. PO (08:03)
[2017-11-09] MEDS: METOPROLOL SUCC 24HR ER 50 MG TAB.ER.24H. PO (08:03)
[2017-11-09] MEDS: FUROSEMIDE 20 MG TABLET PO (08:04)
[2017-11-09] MEDS: LISINOPRIL 5 MG TABLET. PO (08:04)
[2017-11-09] MEDS: ASCORBIC ACID 500 MG TABLET PO ×2 (08:05→21:49)
[2017-11-09] MEDS: FERROUS SULFATE 325 MG TABLET. PO ×2 (08:05→20:17)
[2017-11-09] MEDS: CETIRIZINE HCL 10 MG TABLET. PO (08:05)
[2017-11-09] MEDS: LACTOBACILLUS RHAMNOSUS GG 1 CAPSULE. PO ×2 (08:05→20:17)
[2017-11-09] MEDS: methylPREDNISolone SOD SUCC PF 125 MG/2 ML VIAL. IV (08:06)
[2017-11-09 08:16] LABS: ADD MAN DIFF? NO
[2017-11-09 08:22] LABS: BASO % 0 % (0-3); EOS % 0 % (0-3); HEMATOCRIT 25.6 % (39.0-53.0); HEMOGLOBIN 8.2 g/dL (13.0-17.5); LYMPH # 0.3 x10^3/uL (1.0-4.8); LYMPH % 5 % (24-48); MEAN CORPUSCULAR HEMOGLOBIN 29 pg (25-35); MEAN CORPUSCULAR HGB CONC 32 g/dL (31-37); MEAN CORPUSCULAR VOLUME 89 fL (79-100); MONO # 0.6 x10^3/uL (0.0-1.1); MONO % 9 % (0-9); NEUT # 5.7 x10^3uL (1.8-7.7); NEUT % 87 % (31-73); PLATELET COUNT 114 x10^3/uL (140-400); RED BLOOD COUNT 2.86 x10^6/uL (4.30-5.70); RED CELL DISTRIBUTION WIDTH 18.2 % (11.5-14.5); WHITE BLOOD COUNT 6.6 x10^3/uL (4.0-11.0)
[2017-11-09 08:35] LABS: ANION GAP 4 (6-14); BLOOD UREA NITROGEN 40 mg/dL (8-26); CARBON DIOXIDE 33 mmol/L (21-32); CHLORIDE 101 mmol/L (98-107); GFR 74.1; GLUCOSE 134 mg/dL (70-99); POTASSIUM 4.7 mmol/L (3.5-5.1); SODIUM 138 mmol/L (136-145)
[2017-11-09] MEDS: VANCOMYCIN 1 GM in IV DEXTROSE 5% 250 ML IV (10:00)
[2017-11-09 12:11] LABS: POC GLUCOSE 119 mg/dL (70-99)
[2017-11-09 12:12] LABS: POC GLUCOSE 277 mg/dL (70-99)
[2017-11-09] MEDS: cefTRIAXone IV Push 1 GM VIAL. IVP (12:34)
[2017-11-09 17:04] LABS: POC GLUCOSE 241 mg/dL (70-99)
[2017-11-09] MEDS ORDERED: IPRATRPIUM/ALBUTEROL 0.5/2.5MG 3 ML NEBU. (19:23)
[2017-11-09] MEDS: ATORVASTATIN CALCIUM 10 MG TABLET. PO (20:16)
[2017-11-10] MEDS: fentaNYL PF VIAL 100 MCG/2 ML VIAL IV ×7 (02:52→23:26)
[2017-11-10] MEDS: oxyCODONE IR 5 MG TABLET PO ×4 (04:50→19:34)
[2017-11-10 06:28] LABS: ANION GAP 6 (6-14); BLOOD UREA NITROGEN 42 mg/dL (8-26); CALCIUM 8.9 mg/dL (8.5-10.1); CARBON DIOXIDE 32 mmol/L (21-32); CHLORIDE 102 mmol/L (98-107); CREATININE 1.1 mg/dL (0.7-1.3); GFR 66.4; GLUCOSE 116 mg/dL (70-99); POTASSIUM 4.6 mmol/L (3.5-5.1); SODIUM 140 mmol/L (136-145)
[2017-11-10] MEDS: POTASSIUM CHLORIDE 20 MEQ TABLET.ER. PO ×3 (06:33→16:30)
[2017-11-10] MEDS: INSULIN ASPART 300 UNITS/3 ML INSULN.PEN SQ ×3 (08:00→17:34)
[2017-11-10] MEDS: IPRATRPIUM/ALBUTEROL 0.5/2.5MG 3 ML NEBU. NEB ×2 (08:01→13:09)
[2017-11-10 08:29] LABS: POC GLUCOSE 85 mg/dL (70-99)
[2017-11-10] MEDS: buPROPion 100 MG TABLET PO ×2 (08:32→19:34)
[2017-11-10] MEDS: methylPREDNISolone SOD SUCC PF 125 MG/2 ML VIAL. IV (08:32)
[2017-11-10] MEDS: SPIRONOLACTONE 25 MG TABLET PO (08:33)
[2017-11-10] MEDS: PANTOPRAZOLE 40 MG TABLET.DR. PO ×2 (08:33→16:41)
[2017-11-10] MEDS: ASPIRIN CHEWABLE 81 MG TABLET. PO (08:33)
[2017-11-10] MEDS: FERROUS SULFATE 325 MG TABLET. PO ×2 (08:33→19:34)
[2017-11-10] MEDS: METOPROLOL SUCC 24HR ER 50 MG TAB.ER.24H. PO (08:33)
[2017-11-10] MEDS: CETIRIZINE HCL 10 MG TABLET. PO (08:33)
[2017-11-10] MEDS: LISINOPRIL 5 MG TABLET. PO (08:33)
[2017-11-10] MEDS: FUROSEMIDE 20 MG TABLET PO (08:33)
[2017-11-10] MEDS: AMIODARONE HCL 200 MG TABLET. PO (08:34)
[2017-11-10] MEDS: ASCORBIC ACID 500 MG TABLET PO ×2 (08:34→23:26)
[2017-11-10] MEDS: LACTOBACILLUS RHAMNOSUS GG 1 CAPSULE. PO ×2 (08:34→19:34)
[2017-11-10] MEDS: VANCOMYCIN PER PHARMACY MC (10:20)
[2017-11-10] MEDS: VANCOMYCIN 1 GM in IV DEXTROSE 5% 250 ML IV (11:11)
[2017-11-10] MEDS: POLYETHYLENE GLYCOL 3350 17 GM PACKET. PO (11:12)
[2017-11-10 12:25] LABS: POC GLUCOSE 132 mg/dL (70-99)
[2017-11-10] MEDS: cefTRIAXone IV Push 1 GM VIAL. IVP (13:15)
[2017-11-10] MEDS: IOHEXOL 300 MG/ML 100ML VIAL. IV (16:00)
[2017-11-10] MEDS ORDERED: CONTRAST GIVEN MC (16:15)
[2017-11-10 16:54] LABS: POC GLUCOSE 216 mg/dL (70-99)
[2017-11-10] MEDS: ATORVASTATIN CALCIUM 10 MG TABLET. PO (19:34)
[2017-11-11] MEDS: oxyCODONE IR 5 MG TABLET PO ×3 (01:30→14:36)
[2017-11-11] MEDS: fentaNYL PF VIAL 100 MCG/2 ML VIAL IV (03:34)
[2017-11-11 06:18] LABS: ANION GAP 6 (6-14); BLOOD UREA NITROGEN 40 mg/dL (8-26); CALCIUM 8.7 mg/dL (8.5-10.1); CARBON DIOXIDE 36 mmol/L (21-32); CHLORIDE 101 mmol/L (98-107); GFR 74.1; GLUCOSE 77 mg/dL (70-99); POTASSIUM 4.5 mmol/L (3.5-5.1); SODIUM 143 mmol/L (136-145)
[2017-11-11] MEDS: POTASSIUM CHLORIDE 20 MEQ TABLET.ER. PO ×2 (06:22→08:25)
[2017-11-11] MEDS: INSULIN ASPART 300 UNITS/3 ML INSULN.PEN SQ ×2 (08:00→11:55)
[2017-11-11 08:10] LABS: POC GLUCOSE 61 mg/dL (70-99)
[2017-11-11] MEDS: IPRATRPIUM/ALBUTEROL 0.5/2.5MG 3 ML NEBU. NEB ×2 (08:10→12:26)
[2017-11-11] MEDS: CETIRIZINE HCL 10 MG TABLET. PO (08:23)
[2017-11-11] MEDS: LACTOBACILLUS RHAMNOSUS GG 1 CAPSULE. PO (08:24)
[2017-11-11] MEDS: ASPIRIN CHEWABLE 81 MG TABLET. PO (08:24)
[2017-11-11] MEDS: buPROPion 100 MG TABLET PO (08:24)
[2017-11-11] MEDS: PANTOPRAZOLE 40 MG TABLET.DR. PO (08:24)
[2017-11-11] MEDS: METOPROLOL SUCC 24HR ER 50 MG TAB.ER.24H. PO (08:25)
[2017-11-11] MEDS: FUROSEMIDE 20 MG TABLET PO (08:26)
[2017-11-11] MEDS: SPIRONOLACTONE 25 MG TABLET PO (08:26)
[2017-11-11] MEDS: FERROUS SULFATE 325 MG TABLET. PO (08:27)
[2017-11-11] MEDS: LISINOPRIL 5 MG TABLET. PO (08:27)
[2017-11-11] MEDS: ASCORBIC ACID 500 MG TABLET PO (08:27)
[2017-11-11] MEDS: AMIODARONE HCL 200 MG TABLET. PO (08:28)
[2017-11-11] MEDS: methylPREDNISolone SOD SUCC PF 40 MG/ML VIAL. IV (08:29)
[2017-11-11] MEDS: POLYETHYLENE GLYCOL 3350 17 GM PACKET. PO (09:00)
[2017-11-11] MEDS: VANCOMYCIN PER PHARMACY MC (10:11)
[2017-11-11] MEDS: VANCOMYCIN 1 GM in IV DEXTROSE 5% 250 ML IV (11:21)
[2017-11-11 11:47] LABS: POC GLUCOSE 106 mg/dL (70-99)
[2017-11-11] MEDS: cefTRIAXone IV Push 1 GM VIAL. IVP (13:14)
== END 2017-11-11 15:30 | DRG 177 ==
LOC: ER 05:14 → 2 SOUTH 06:26
PROC: 0DB58ZX Excision of Esophagus, Via Natural or Artificial Opening Endoscopic, Diagnostic (ICD-10-PCS; principal; 2017-11-07 14:30)
DX: J15.6 Pneumonia due to other Gram-negative bacteria (principal); J96.21 Acute and chronic respiratory failure with hypoxia; E43 Unspecified severe protein-calorie malnutrition; I50.43 Acute on chronic combined systolic (congestive) and diastolic (congestive) heart failure; E87.2 Acidosis; D61.818 Other pancytopenia; E11.22 Type 2 diabetes mellitus with diabetic chronic kidney disease; E11.51 Type 2 diabetes mellitus with diabetic peripheral angiopathy without gangrene; J96.22 Acute and chronic respiratory failure with hypercapnia; I13.0 Hypertensive heart and chronic kidney disease with heart failure and stage 1 through stage 4 chronic kidney disease, or unspecified chronic kidney disease; Z68.1 Body mass index [BMI] 19.9 or less, adult; J44.0 Chronic obstructive pulmonary disease with (acute) lower respiratory infection; J44.1 Chronic obstructive pulmonary disease with (acute) exacerbation; I27.20 Pulmonary hypertension, unspecified; I71.4 Abdominal aortic aneurysm, without rupture; E78.00 Pure hypercholesterolemia, unspecified; E78.5 Hyperlipidemia, unspecified; E87.5 Hyperkalemia; F17.201 Nicotine dependence, unspecified, in remission; F41.9 Anxiety disorder, unspecified; G89.29 Other chronic pain; I25.10 Atherosclerotic heart disease of native coronary artery without angina pectoris; I25.2 Old myocardial infarction; I48.2 Chronic atrial fibrillation; I70.8 Atherosclerosis of other arteries; I72.3 Aneurysm of iliac artery; K21.9 Gastro-esophageal reflux disease without esophagitis; Z96.641 Presence of right artificial hip joint; N18.9 Chronic kidney disease, unspecified; M19.90 Unspecified osteoarthritis, unspecified site; T38.0X5A Adverse effect of glucocorticoids and synthetic analogues, initial encounter; Z87.81 Personal history of (healed) traumatic fracture; Z82.49 Family history of ischemic heart disease and other diseases of the circulatory system; Z86.73 Personal history of transient ischemic attack (TIA), and cerebral infarction without residual deficits; Z86.79 Personal history of other diseases of the circulatory system; Z95.1 Presence of aortocoronary bypass graft; Z95.5 Presence of coronary angioplasty implant and graft; Z99.81 Dependence on supplemental oxygen; Y92.89 Other specified places as the place of occurrence of the external cause; Z91.030 Bee allergy status; Z91.010 Allergy to peanuts; Z91.013 Allergy to seafood; Z91.018 Allergy to other foods; Z91.048 Other nonmedicinal substance allergy status
CPT/HCPCS: 36415; 36600; 71045; 71275; 74018; 74174; 74220; 80048; 80053; 80202; 82553; 82607; 82746; 82805; 82962; 83036; 83540; 83550; 83690; 83880; 84484; 85007; 85025; 85045; 85379; 87641; 88305; 92610-GN; 93005; 94640; 94760; 96365; 96375; 97110-GO; 97110-GP; 97116-GP; 97162-GP; 97166-GO; 97530-GO; 97530-GP; 99291; 99291-25; 99406; J0696; J1815; J2270; J2704; J2920; J2930; J3010; J3370; J7050; J7620; Q9967